=== PATIENT | female | born 1955 | race Two or more races ===

== ENCOUNTER 2023-04-04 13:14 | Outpatient (AMB) | payer OTHER, SELFPAY ==
--- NOTE | 2023-04-04 13:18 | MHC.PC.OV ---
Vital Signs 04/04/23 13:22 Height 5 ft 2.5 in Weight 212 lb 8 oz BMI 38.2 BP 130/64 Blood Pressure Location Lt brachial Position Sitting Pulse 81 Pulse Source Pulse Oximeter Pulse Oximetry (%) 96 Oxygen Delivery Method Room Air Intake Visit Reasons: New patient-requesting physical Intake Note: Patient is a new patient here to establish care for Diabetes, HTN, Irregular heart beat, Right leg pain, Thyroid ?, Chronic pain. Transferring care from Dr Perlita You ([facility]). Medical records have not been requested and have not received. Transportation Specialist Required: No Etcher Machine: Not Required per policy Accompanied by: Self / Same As Patient Allergies aspirin Allergy (Intermediate, Verified 04/04/23 13:45) Gastrointestinal Upset Medication List - Last Reconciled 04/04/23 by FINN Whelan atenolol 100 mg PO DAILY flash glucose sensor (FreeStyle Ela 2 Sensor kit) check bs 4 times a day insulin detemir U-100 (Levemir FlexPen) 60 units subcut QPM insulin lispro 18 units subcut TID losartan 50 mg PO DAILY pen needle, diabetic (BD Ultra-Fine Micro Pen Needle) As directed Tobacco use date assessed: 04/04/23 Fall risk assessment: 1 Fall in past year Last assessed Fall Risk: 04/04/23 Dental Screening Dental Screen Date: 04/04/23 Did you have a dental visit in the last 12 months?: No Did you have a dental problem in the last 6 months where you did not have access to dental care?: No Was dental information given to patient?: No HPI HPI Comments History of Present Illness Details 67-year-old female new patient presents today to establish care. Past medical history significant for hypertension, type 2 diabetes mellitus, thyroid nodules last thyroid ultrasound completed October 2022 recommended 1 year follow-up and chronic pain. Patient transferring care from Dr. Perltia You. [facility] Medical History (Updated 04/06/23 @ 07:09 by FINN Whelan) Right sided sciatica Polyarthralgia Thyroid nodule Irregular heart beat Surgical History History of toe surgery History of delivery Family History (Updated 04/04/23 @ 13:53 by FINN Whelan) Mother Diabetes HTN (hypertension) Father Cardiomegaly Substance use disorder Social History Housing: House Alcohol intake: never Patient Tobacco Use Status: Former Tobacco user e-Cigarette/Vaping Use: Never Used Second Hand Smoke Exposure: No service: No Current occupational status: retired Cognitive needs: Yes (cane) Hearing needs: No Vision needs: Yes (glasses) Questionnaire PHQ-9 Over the last 2 weeks, how often have you been bothered by any of the following problems? 1. Little interest or pleasure in doing things: not at all 2. Feeling down, depressed, or hopeless: not at all 3. Trouble falling or staying asleep, or sleeping too much: not at all 4. Feeling tired or having little energy: not at all 5. Poor appetite or overeating: not at all 6. Feeling bad about yourself - or that you are a failure or have let yourself or your family down: not at all 7. Trouble concentrating on things, such as reading the newspaper or watching television: not at all 8. Moving or speaking so slowly that other people could have noticed. Or the opposite - being so fidgety or restless that you have been moving around a lot more than usual: not at all 9. Thoughts that you would be better off or of hurting yourself in some way: not at all Total score: 0 Depression Screening Interpretation: Negative Depression Screening Done: Yes [id number] - PHQ-9 Billing: Yes Source: Developed by Drs. Jesse Cui, Beatrice Casas, Les Bhatia and colleagues, with an educational harlan from [employer]. Thrive Questionnaire Date Thrive assessed: 04/04/23 I am a: Patient What is your living situation today?: I have a steady place to live Within the past 12 months, did the food you bought not last and you didn't have the money to get more?: Never true Within the past 12 months, did you worry whether your food would run out before you got money to buy more?: Never true Do you have trouble paying for medicines?: No Do you have trouble getting transportation to medical appointments?: No Do you have trouble paying your heating and electricity bill?: No Do you have trouble taking care of your child, family member or friend?: No Do you have trouble with day-to-day activities such as bathing, preparing meals, shopping, managing finances, etc.?: No Are you currently unemployed and looking for a job?: No Are you interested in more education?: No Currently or been in a relationship where the following occur: no concerns reported AUDIT C Alcohol Use Questionnaire (AUDIT-C) 1. How often do you have a drink containing alcohol?: Never Total Score: 0 NALINI-7 AMB Questionnaire NALINI-7 Date NALINI - 7 assessed: 04/04/23 Feeling nervous, anxious, or on edge: 0 = Not at all Not being able to stop or control worryin = Not at all Worrying too much about different things: 0 = Not at all Trouble relaxin = Not at all Being so restless that it is hard to sit still: 0 = Not at all Becoming easily annoyed or irritable: 0 = Not at all Feeling afraid as if something awful might happen: 0 = Not at all Total NALINI-7 score (0-4 normal; 5-9 mild; 10-14 moderate; 15-21 severe): 0 Source: Developed by Drs. eJsse Cui, Beatrice Casas, Les Bhatia and colleagues, with an educational harlan from [employer]. NALINI-7 Assessment Billing NALINI-7 Assessment Tool: NALINI-7 Assessment 20880 Review of Systems Const Denies chills, Denies fatigue, Denies fever(s) and Denies poor appetite Eyes Denies no additional complaints ENT Reports Normal hearing present Card Denies chest pain, Denies syncope, Denies rapid heart rate and Denies dyspnea Resp Denies cough and Denies dyspnea GI Denies change in stool character, Denies constipation, Denies diarrhea, Denies nausea and Denies vomiting Denies urinary frequency, Denies dysuria and Denies urinary urgency Neuro Reports Normal hearing present, Denies confusion and Denies syncope Psych Denies confusion Endo Denies fatigue Physical exam (Primary Care) Vital Signs: Last Vital Signs Pulse 81 04/04/23 13:22 BP 130/64 04/04/23 13:22 Pulse Ox 96 04/04/23 13:22 Oxygen Delivery Method Room Air 10/13/23 13:22 BMI result Body Mass Index 38.2 Tobacco/Smoking Status: Tobacco use Status Tobacco use date assessed 04/04/23 04/04/23 13:39 Patient Tobacco Use Status Former Tobacco user 04/04/23 13:39 e-Cigarette/Vaping Use Never Used 04/04/23 13:39 PHQ-9: PHQ-9 Score PHQ-9: Total score 0 04/04/23 14:05 Depression Screening Interpretation: Negative Thrive Assessment: Date of Thrive Assessment Date Thrive assessed 04/04/23 04/04/23 13:39 Currently or been in a relationship where the following occur: no concerns reported Const General: No confusion Orientation/consciousness: No confusion HENMT Head: Yes normocephalic and Yes atraumatic Eyes Conjunctivae: conjunctivae normal Chest Chest palpation & inspection: normal inspection of the chest Resp Effort & Inspection: normal respiratory effort Auscultation: clear to auscultation bilaterally, no crackles, no rhonchi and no wheezes Cardio Rate: regular rate Rhythm: regular rhythm Heart sounds: S1 normal heart sound present and S2 normal heart sound present GI Inspection: Yes normal to inspection Neuro General: No confusion Cranial nerves: Yes Normal hearing present Extrem General: No edema Office Procedures Flu Questionnaire Does the patient have a severe egg allergy?: No Does the patient have severe life threatening allergies?: No Does the patient have a fever or illness today?: No Has the patient ever had Guillain-Ligonier Syndrome?: No Has the patient ever had any past reaction to a flu shot?: No Immunizations flu vacc [id number] 6mos up(PF) 60 mcg(15 mcgx4)/0.5 mL IM syringe Performing Provider: FINN Whelan [facility] Documented (not given) by: GRAYSON Rivera on 04/04/23 14:06 Reason Not Given: Not Given Assessment and Plan Assessment & Plan (1) HTN (hypertension): Code(s): I10 - Essential (primary) hypertension Plan: Continue on atenolol 100 mg daily and losartan 50 mg daily. Blood pressure goal less than 140/90. Follow low-salt diet and exercise. (2) Type 2 diabetes mellitus: Code(s): E11.9 - Type 2 diabetes mellitus without complications Plan: Continue on Levemir 60 units q.p.m. and insulin lispro 18 units t.i.d.. Fasting glucose and hemoglobin A1c ordered. Plan [facility] in [facility] for PE Orders: Orders Comprehensive [place]. Panel Fast 04/04/23 M25.50 - Pain in unspecified joint Lipid Panel 04/04/23 Z13.220 - Encounter for screening for lipoid disorders Hemoglobin A1c 04/04/23 E11.9 - Type 2 diabetes mellitus without complications Influenza [id number] Immunization 04/04/23 Z23 - Encounter for immunization Complete Blood Count Auto Diff 04/04/23 Z13.0 - Encounter for screening for diseases of the blood and blood-forming organs and certain disorders involving the immune mechanism TSH reflex Free T4 04/04/23 Z13.29 - Encounter for screening for other suspected endocrine disorder Microalbumin, Random (w Creat) 04/04/23 E11.9 - Type 2 diabetes mellitus without complications Medications: New losartan 50 mg PO DAILY 30 tabs 3RF I10 - Essential (primary) hypertension flash glucose sensor (FreeStyle Ela 2 Sensor kit) check bs 4 times a day 1 ea 5RF Coding Level of Care Code New Pt Level 4 (16334) Diagnoses HTN (hypertension) I10 Type 2 diabetes mellitus E11.9 Additional Codes NALINI-7 Assessment Billing - NALINI-7 Assessment Tool: NALINI-7 Assessment 49266 ([id number])
[2023-04-04 13:22] VITALS: BP 130/64; PULSE 81; O2SAT 96; BMI 38.2
== END 2023-04-04 14:10 | disposition home or self-care (01) ==
PROVIDERS: PCP Nurse Practitioner Family; Visit Provider Nurse Practitioner Family
DX: I10 Essential (primary) hypertension (principal); E11.9 Type 2 diabetes mellitus without complications
CPT/HCPCS: 99204

== ENCOUNTER 2023-06-11 08:05 | Outpatient (REF) | payer MEDICARE, SELFPAY ==
[2023-06-11 08:22] LABS: MANUAL DIFF FLAG NO
[2023-06-11 09:07] LABS: Basophils Percent Auto 0.3 % (0-2); Eosinophils Absolute Auto 0.2 X10*3/uL (0.0-0.4); Eosinophils Percent Auto 1.9 % (0-4); Hemoglobin 12.6 g/dl (12.0-16.0); Imm Gran Abs Auto 0.05 X10*3/uL (0.00-0.03); Imm Gran Pct Auto 0.4 % (0.0-0.4); Lymphocytes Absolute Auto 2.9 X10*3/uL (1.2-4.9); Lymphocytes Percent Auto 25.7 % (20-40); Mean Corpuscular HGB Conc 32.3 g/dl (31.0-35.0); Mean Corpuscular Hemoglobin 26.1 pg (27.0-33.0); Mean Corpuscular Volume 80.9 fL (80.0-98.0); Mean Platelet Volume 10.6 fL (9.4-12.3); Monocytes Absolute Auto 0.6 X10*3/uL (0.1-1.2); Monocytes Percent Auto 4.9 % (2-11); Neutrophils Absolute Auto 7.6 x10*3/uL (2.0-8.3); Neutrophils Percent Auto 66.8 % (45-73); Platelet Count 275 X10*3/uL (160-400); Red Blood Count 4.82 X10*6/uL (4.20-5.50); Red Cell Distribution Width 14.1 % (11.0-16.0); White Blood Count 11.3 X10*3/uL (4.8-10.8)
[2023-06-11 09:23] LABS: Estimated Average Glucose 189 mg/dL; Hemoglobin A1c % 8.2 % (<6.0)
[2023-06-11 09:41] LABS: Alanine Aminotransferase 14 U/L (0-31); Albumin Level 4.2 g/dL (3.5-5.0); Alkaline Phosphatase 90 U/L (39-117); Anion Gap 12 (12-20); Aspartate Amino Transferase 17 U/L (5-31); Bilirubin Total 0.8 mg/dL (0.0-1.0); Blood Urea Nitrogen 8 mg/dL (9-16); Calcium 9.6 mg/dL (8.4-10.2); Carbon Dioxide 31 mmol/L (22-29); Chloride 102 mmol/L (96-108); Cholesterol 225 mg/dL (<200); Estimated Glomerular Filt Rate > 60; Glucose Fasting 152 mg/dL (60-99); HDL Cholesterol 45 mg/dL (>40); LDL Cholesterol Calculated 144 mg/dL (<100); Potassium 3.8 mmol/L (3.3-5.1); Sodium 141 mmol/L (135-145); Total Protein 8.2 g/dL (6.5-8.0); Triglycerides 182 mg/dL (<150)
[2023-06-11 09:58] LABS: Creatinine Urine 230.74 mg/dL; Microalbum/Creatinine Ratio Ur 179.8 ug/mg cr (<30)
[2023-06-11 10:06] LABS: TSH reflex Free T4 0.51 uIU/mL (0.32-4.0)
== END 2023-06-11 08:06 | disposition home or self-care (01) ==
LOC: HO.LAB 08:05
PROVIDERS: PCP Internal Medicine; Visit Provider Nurse Practitioner Family
DX: M25.50 Pain in unspecified joint (principal); E11.9 Type 2 diabetes mellitus without complications; Z13.220 Encounter for screening for lipoid disorders; Z13.0 Encounter for screening for diseases of the blood and blood-forming organs and certain disorders involving the immune mechanism; Z13.29 Encounter for screening for other suspected endocrine disorder
CPT/HCPCS: 36415; 80053; 80061; 82043; 82570; 83036; 84443; 85025

== ENCOUNTER 2023-07-03 07:53 | Outpatient (AMB) | payer MEDICARE, SELFPAY ==
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
[2023-07-03 08:37] VITALS: BP 132/80; PULSE 78; O2SAT 95; BMI 38.5
== END 2023-07-03 09:40 | disposition home or self-care (01) ==
PROVIDERS: PCP Internal Medicine; Visit Provider Internal Medicine
DX: L43.9 Lichen planus, unspecified (principal); E11.9 Type 2 diabetes mellitus without complications; I10 Essential (primary) hypertension
CPT/HCPCS: 99214

== ENCOUNTER 2023-09-04 07:49 | Outpatient (AMB) | payer MEDICARE, SELFPAY ==
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
[2023-09-04 08:40] VITALS: BP 100/64; PULSE 71; O2SAT 97; BMI 39.1
== END 2023-09-04 09:09 | disposition home or self-care (01) ==
PROVIDERS: PCP Internal Medicine; Visit Provider Internal Medicine
DX: E11.9 Type 2 diabetes mellitus without complications (principal)
CPT/HCPCS: 83036; 99214

== ENCOUNTER 2023-09-15 11:41 | Outpatient (REF) | payer MEDICARE, SELFPAY ==
--- NOTE | ~2023-09-15 | MM_ITS ---
EXAMINATION: MM SCREENING DIGITAL BREAST TOMOSYNTHESIS, BILATERAL CLINICAL INFORMATION: Screening. Asymptomatic. COMPARISON: Mammography: There are no prior mammograms for comparison. TECHNIQUE: Digital breast tomosynthesis is performed in both the craniocaudal and mediolateral oblique views along with computer-aided detection (CAD). Synthesized 2D images are generated from the tomosynthesis. FINDINGS: There are scattered areas of fibroglandular density (ACR BI-RADS breast composition Category b). There are no significant masses, abnormal calcifications, or other abnormalities. MM/MM tomosynthesis screening BI IMPRESSION: No mammographic evidence of malignancy. ASSESSMENT: BI-RADS BI-RADS 1 - Negative RECOMMENDATION: Routine annual mammography screening. 1 year F/U This examination should not preclude the clinical evaluation of a suspicious palpable abnormality. This patient's information was entered into a reminder system with a target due date for their next mammogram.
== END 2023-09-15 11:42 | disposition home or self-care (01) ==
LOC: HO.MAMMO 11:41
PROVIDERS: PCP Internal Medicine; Visit Provider Internal Medicine
DX: Z12.31 Encounter for screening mammogram for malignant neoplasm of breast (principal)
CPT/HCPCS: 77063; 77067

== ENCOUNTER → 2023-09-15 12:00 | Outpatient (BNV) | payer MEDICARE, SELFPAY | PROVIDERS: PCP Internal Medicine; Visit Provider Radiology Diagnostic Radiology | DX: Z12.31 Encounter for screening mammogram for malignant neoplasm of breast (principal) | CPT/HCPCS: 77063; 77067 ==

== ENCOUNTER 2023-12-11 13:11 | Outpatient (AMB) | payer MEDICARE, SELFPAY ==
--- NOTE | 2023-12-11 14:17 | A.OFFPC_ITS ---
Vital Signs 12/11/23 14:19 Height 5 ft 2.5 in Weight 216 lb 6 oz BMI 38.9 BP 126/60 Blood Pressure Location Lt brachial Position Sitting Pulse 85 Pulse Source Pulse Oximeter Pulse Oximetry (%) 97 Oxygen Delivery Method Room Air Intake Visit Reasons: 3 Month F/U Intake Note: Patient is here to follow up on DM, HTN, Arthralgia. Edge Bander Hand Required: No In Home Sales Representative: Not Required per policy Accompanied by: Self / Same As Patient Allergies aspirin Allergy (Intermediate, Verified 12/11/23 15:15) Gastrointestinal Upset hydrochlorothiazide Allergy (Intermediate, Verified 12/11/23 15:15) Hypertension Medication List - Last Reconciled 12/11/23 by Maurice Moralez MD atenolol 100 mg PO DAILY atorvastatin 10 mg PO BEDTIME flash glucose sensor (FreeStyle Ela 2 Sensor kit) check bs 4 times a day insulin detemir U-100 (Levemir FlexPen) 60 units subcut QPM insulin lispro 18 units subcut TID pen needle, diabetic (BD Ultra-Fine Micro Pen Needle) As directed valsartan 80 mg PO DAILY Tobacco use date assessed: 12/11/23 Fall risk assessment: No Falls in past year Last assessed Fall Risk: 12/11/23 Dental Screening Dental Screen Date: 09/04/23 HPI 3 Month F/U HPI Details 68-year-old female presents to the [facility] e to discuss her chronic medical conditions. Patient is compliant with medications. She reports that her diet is still not optimal. Not exercising or checking sugars at home. Able to function and do activities of daily living. Patient lives with her son. Complains of pains in both her wrist joints and other small joints of the hand in both extremities. Morning stiffness present. [facility] Medical History HTN (hypertension) Type 2 diabetes mellitus Right sided sciatica Polyarthralgia Thyroid nodule Irregular heart beat Surgical History History of toe surgery History of delivery Family History Mother Diabetes HTN (hypertension) Father Cardiomegaly Substance use disorder Social History Housing: House Alcohol intake: never Patient Tobacco Use Status: Former Tobacco user e-Cigarette/Vaping Use: Never Used Second Hand Smoke Exposure: No service: No Current occupational status: retired Cognitive needs: Yes (cane) Hearing needs: No Vision needs: Yes (glasses) Questionnaire Thrive Questionnaire Date Thrive assessed: 07/03/23 NALINI-7 AMB Questionnaire NALINI-7 Date NALINI - 7 assessed: 07/03/23 Source: Developed by Drs. Jesse Cui, Beatrice Casas, Les Bhatia and colleagues, with an educational harlan from [employer]. Physical exam (Primary Care) Vital Signs: Last Vital Signs Pulse 85 12/11/23 14:19 BP 126/60 12/11/23 14:19 Pulse Ox 97 12/11/23 14:19 Oxygen Delivery Method Room Air 12/11/23 14:19 BMI result Body Mass Index 38.9 Tobacco/Smoking Status: Tobacco use Status Tobacco use date assessed 12/11/23 12/11/23 14:30 Patient Tobacco Use Status Former Tobacco user 12/11/23 14:30 e-Cigarette/Vaping Use Never Used 12/11/23 14:30 Thrive Assessment: Date of Thrive Assessment Date Thrive assessed 07/03/23 12/11/23 14:30 Const General: cooperative and healthy appearing Nutritional Appearance: well nourished Orientation/consciousness: patient oriented x3 Limitations: no limitations HENMT Head: Yes normal to inspection Eyes General: appearance normal, both eyes and all related structures Neck Neck: Yes normal visual inspection Chest Chest palpation & inspection: normal palpation of entire chest wall Resp Effort & Inspection: normal respiratory effort Neuro General: patient oriented x3 Results AMB Hemoglobin A1c AMB Hemoglobin A1c 8.3 % Last Edit by GRAYSON Monteiro on 12/11/23 14:32 Results Reviewed Results Reviewed: Laboratory Last Values Hgb A1c (Clinic) 8.3 % (4.0-6.0) H 12/11/23 14:17 Assessment and Plan Assessment & Plan (1) Type 2 diabetes mellitus: Code(s): E11.9 - Type 2 diabetes mellitus without complications Plan: A1c is 8.3. No change compared to the previous. Patient still reluctant to increase her insulin dosage. She believes by optimizing her diet she can reduce her A1c. (2) Arthralgia of multiple joints: Code(s): M25.50 - Pain in unspecified joint Plan: Blood work has been ordered. Orders: Orders AMB Hemoglobin A1c Today E11.9 - Type 2 diabetes mellitus without complications Coding Level of Care Code Est Pt Level 3 (64038) Complex EM visit Add On G2211 Diagnoses Type 2 diabetes mellitus E11.9 Arthralgia of multiple joints M25.50
[2023-12-11 14:19] VITALS: BP 126/60; PULSE 85; O2SAT 97; BMI 38.9
== END 2023-12-11 14:59 | disposition home or self-care (01) ==
PROVIDERS: PCP Internal Medicine; Visit Provider Internal Medicine
DX: E11.9 Type 2 diabetes mellitus without complications (principal); M25.50 Pain in unspecified joint
CPT/HCPCS: 83036; 99213; G2211

== ENCOUNTER 2023-12-16 08:48 | Outpatient (REF) | payer MEDICARE, SELFPAY ==
[2023-12-16 09:27] LABS: Hematocrit 37.6 % (37.0-47.0); Hemoglobin 12.1 g/dl (12.0-16.0); Mean Corpuscular HGB Conc 32.2 g/dl (31.0-35.0); Mean Corpuscular Hemoglobin 26.2 pg (27.0-33.0); Mean Corpuscular Volume 81.6 fL (80.0-98.0); Mean Platelet Volume 10.7 fL (9.4-12.3); Platelet Count 209 X10*3/uL (160-400); Red Blood Count 4.61 X10*6/uL (4.20-5.50); White Blood Count 9.1 X10*3/uL (4.8-10.8)
[2023-12-16 09:54] LABS: Alanine Aminotransferase 12 U/L (0-31); Albumin Level 4.1 g/dL (3.5-5.0); Alkaline Phosphatase 99 U/L (39-117); Anion Gap 13 (12-20); Aspartate Amino Transferase 14 U/L (5-31); Bilirubin Direct 0.2 mg/dL (0.0-0.5); Bilirubin Total 0.8 mg/dL (0.0-1.0); Blood Urea Nitrogen 8 mg/dL (9-16); Calcium 9.1 mg/dL (8.4-10.2); Carbon Dioxide 30 mmol/L (22-29); Chloride 105 mmol/L (96-108); Cholesterol 170 mg/dL (<200); Estimated Glomerular Filt Rate > 60; Glucose Random 183 mg/dL (60-115); HDL Cholesterol 39 mg/dL (>40); LDL Cholesterol Calculated 111 mg/dL (<100); Potassium 3.7 mmol/L (3.3-5.1); Sodium 144 mmol/L (135-145); Total Protein 7.9 g/dL (6.5-8.0); Triglycerides 102 mg/dL (<150)
[2023-12-16 10:12] LABS: Erythrocyte Sedimentation Rate 31 MM/HR (0-20)
== END 2023-12-16 08:49 | disposition home or self-care (01) ==
LOC: HO.LAB 08:48
PROVIDERS: PCP Internal Medicine; Visit Provider Internal Medicine
DX: E11.9 Type 2 diabetes mellitus without complications (principal); M25.50 Pain in unspecified joint
CPT/HCPCS: 36415; 80048; 80061; 80076; 85027; 85652

== ENCOUNTER 2024-03-17 13:53 | Outpatient (AMB) | payer MEDICARE, SELFPAY ==
--- NOTE | 2024-03-17 13:58 | A.OFFPC_ITS ---
Vital Signs 03/17/24 13:59 Height 5 ft 2.5 in Weight 213 lb 2 oz BMI 38.4 BP 110/78 Blood Pressure Location Lt brachial Position Sitting Pulse 80 Pulse Source Pulse Oximeter Pulse Oximetry (%) 98 Oxygen Delivery Method Room Air Intake Visit Reasons: 3mth f/u - see comments Intake Note: Patient is here to follow up on HTN, DM. Requesting Levemir insulin refill. 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 Patient continues to have pain in her left elbow, left knee and left hip. She uses a cane to ambulate. Compliant with medications. She does not check her blood sugars often. [facility] Medical History (Updated 03/17/24 @ 14:40 by Maurice Moralez MD) HTN (hypertension) Type 2 diabetes mellitus Right sided sciatica Polyarthralgia Thyroid nodule Irregular heart beat Surgical History (Updated 03/17/24 @ 14:30 by Maurice Moralez MD) History of colonoscopy (~06/23/20) History of tooth extraction History of toe surgery History of delivery Family History Mother Diabetes HTN (hypertension) Father Cardiomegaly Substance use disorder Social History Housing: House Alcohol intake: never Patient Tobacco Use Status: Former Tobacco user e-Cigarette/Vaping Use: Never Used Second Hand Smoke Exposure: No service: No Current occupational status: retired Cognitive needs: Yes (cane) Hearing needs: No Vision needs: Yes (glasses) Questionnaire Thrive Questionnaire Date Thrive assessed: 07/03/23 Are you currently unemployed and looking for a job?: No NALINI-7 AMB Questionnaire NALINI-7 Date NALINI - 7 assessed: 07/03/23 Source: Developed by DrsBrayden Cui, Beatrice Casas, Les Bhatia and colleagues, with an educational harlan from [employer]. Physical exam (Primary Care) BMI result Body Mass Index 38.4 Tobacco/Smoking Status: Tobacco use Status Tobacco use date assessed 03/17/24 03/17/24 14:04 Patient Tobacco Use Status Former Tobacco user 03/17/24 14:04 e-Cigarette/Vaping Use Never Used 03/17/24 14:04 Thrive Assessment: Date of Thrive Assessment Date Thrive assessed 07/03/23 03/17/24 14:04 Const General: cooperative and healthy appearing Nutritional Appearance: well nourished Orientation/consciousness: patient oriented x3 Limitations: no limitations HENMT Head: Yes normal to inspection Eyes General: appearance normal, both eyes and all related structures Neck Other: Multiple thyroid nodules. Neck: Yes normal visual inspection Chest Chest palpation & inspection: normal palpation of entire chest wall Resp Effort & Inspection: normal respiratory effort Neuro General: patient oriented x3 Results AMB Hemoglobin A1c AMB Hemoglobin A1c 8.0 % Last Edit by GRAYSON Monteiro on 03/17/24 14:16 Assessment and Plan Assessment & Plan (1) HTN (hypertension): Code(s): I10 - Essential (primary) hypertension Plan: Blood pressure is in range. Continue medications at same dosage. (2) Type 2 diabetes mellitus: Code(s): E11.9 - Type 2 diabetes mellitus without complications Plan: A1c is 8.0. Patient now agrees to increase her insulin dosage. Lantus insulin has been increased to 70 units and the short-acting insulin has been increased to 20 units t.i.d.. (3) Arthralgia of multiple joints: Code(s): M25.50 - Pain in unspecified joint Plan: Patient has osteoarthritis. Suggested daily use of acetaminophen. (4) Thyroid nodule: Comment: Multiple thyroid nodules, U/S October 2022 Recommended 1 year Follow up Code(s): E04.1 - Nontoxic single thyroid nodule Plan: Patient reports that she has had ultrasounds done by her circular saw edge fuser in [place]. Old records are being requested. Orders: Orders AMB Hemoglobin A1c Today E11.9 - Type 2 diabetes mellitus without complications Referrals Cologuard Test Z12.11 - Encounter for screening for malignant neoplasm of colon Coding Level of Care Code Est Pt Level 4 (36555) Complex EM visit Add On G2211 Diagnoses HTN (hypertension) I10 Type 2 diabetes mellitus E11.9 Arthralgia of multiple joints M25.50 Thyroid nodule E04.1
[2024-03-17 13:59] VITALS: BP 110/78; PULSE 80; O2SAT 98; BMI 38.4
== END 2024-03-17 15:06 | disposition home or self-care (01) ==
PROVIDERS: PCP Internal Medicine; Visit Provider Internal Medicine
DX: I10 Essential (primary) hypertension (principal); E11.9 Type 2 diabetes mellitus without complications; M25.50 Pain in unspecified joint; E04.1 Nontoxic single thyroid nodule

== ENCOUNTER → 2024-03-17 13:53 | Outpatient (BNVA) | payer MEDICARE, SELFPAY | PROVIDERS: PCP Internal Medicine; Visit Provider Internal Medicine | DX: E11.9 Type 2 diabetes mellitus without complications (principal); I10 Essential (primary) hypertension; M25.50 Pain in unspecified joint; E04.1 Nontoxic single thyroid nodule | CPT/HCPCS: 83036; 99212 ==

== ENCOUNTER 2024-06-30 09:15 | Outpatient (AMB) | payer MEDICARE, SELFPAY ==
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
[2024-06-30 09:55] VITALS: BP 138/74; PULSE 80; O2SAT 98; BMI 39.1
== END 2024-06-30 10:55 | disposition home or self-care (01) ==
PROVIDERS: PCP Internal Medicine; Visit Provider Internal Medicine
DX: E11.9 Type 2 diabetes mellitus without complications (principal)

== ENCOUNTER → 2024-06-30 09:15 | Outpatient (BNVA) | payer MEDICARE, SELFPAY | PROVIDERS: PCP Internal Medicine; Visit Provider Internal Medicine | DX: Z09 Encounter for follow-up examination after completed treatment for conditions other than malignant neoplasm (principal); M79.605 Pain in left leg; M54.9 Dorsalgia, unspecified; M25.551 Pain in right hip; M25.552 Pain in left hip; E04.1 Nontoxic single thyroid nodule; E11.9 Type 2 diabetes mellitus without complications; M25.50 Pain in unspecified joint; I10 Essential (primary) hypertension; Z87.898 Personal history of other specified conditions | CPT/HCPCS: 83036; 96127; 99212 ==

== ENCOUNTER → 2024-07-28 11:49 | Outpatient (BNV) | payer MEDICARE, SELFPAY | PROVIDERS: PCP Internal Medicine; Visit Provider Radiology Diagnostic Radiology | DX: E04.1 Nontoxic single thyroid nodule (principal) | CPT/HCPCS: 76536 ==

== ENCOUNTER 2024-08-10 07:35 | Outpatient (REF) | payer MEDICARE, SELFPAY ==
--- NOTE | ~2024-08-10 | XR_ITS ---
EXAMINATION: XR HIP, RIGHT CLINICAL INFORMATION: M25.559 - Pain in unspecified hip COMPARISON: None available. TECHNIQUE: AP pelvis, and 2 views of the right hip. FINDINGS: No fracture. Alignment is anatomic. Hip joint space is maintained. Normal acetabular coverage. Mild arthritic changes in both SI joints and the lower lumbar spine. Soft tissues are unremarkable. XR/XR hip RT min 2V IMPRESSION: Normal right hip. Electronically signed by: Elmer Rushing MD 08/11/2024 08:53 AM [facility]
--- NOTE | ~2024-08-10 | XR_ITS ---
EXAMINATION: XR HIP, LEFT CLINICAL INFORMATION: M25.559 - Pain in unspecified hip COMPARISON: None available. TECHNIQUE: Two views of the left hip. FINDINGS: No fracture. Alignment is anatomic. Hip joint space is maintained. Normal acetabular coverage. Soft tissues are unremarkable. XR/XR hip LT min 2V IMPRESSION: Normal left hip. Electronically signed by: Elmer Rushing MD 08/11/2024 08:52 AM [facility]
--- OUTSIDE RECORDS SUMMARY | 2024-08-10 07:37 | XMS_ITS | Patient Health Record ---
Author Organization [facility] Address [address] [place] [address] Care Team Providers Care Electronic Gluing Machine Operator Name Role Phone Robert Franco Primary Care Provider Robert Franco Unavailable Unavailable Allergies No Known Allergies Reason For Referral No Information Medications Medication SIG (Take, Route, Frequency, Duration) Notes Start Date End Date Status Atenolol 100 MG 1 tablet Orally Once a day for 30 day(s) Active Losartan Potassium-HCTZ 50-12.5 MG 1 tablet Orally Once a day for 30 day(s) Active NovoLOG FlexPen 100 UNIT/ML as directed Subcutaneous Act jeniffer Lantus SoloStar 100 UNIT/ML 20 subcut qhs Active Plan Of Treatment Pending Test Test Name Order Date Urinalysis, Complete 01/26/2021 Insurance Providers Payer Name Payer Address Payer Phone Subscriber Number Group Number Insured Name Patient Relationship to Insured Coverage Start Date Coverage End Date [facility] [address] [address] [place] [phone] [id number] Kathy Cowan Self - patient is the insured Medical (General) History Medical History History ICD Code DM hypertension irregiular heart beat Surgical History Surgery Date(Month/Year) c section Hospitalization History Reason Date(Month/Year) as above
== END 2024-08-10 07:36 | disposition home or self-care (01) ==
LOC: HO.HOSX 07:35
PROVIDERS: Visit Provider Physician Assistant
DX: M25.551 Pain in right hip (principal); M25.552 Pain in left hip; M54.16 Radiculopathy, lumbar region
CPT/HCPCS: 73502; 99202

== ENCOUNTER 2024-08-10 09:39 | Outpatient (AMB) | payer MEDICARE, SELFPAY ==
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
[2024-08-10 09:58] VITALS: BMI 39.7
== END 2024-08-10 10:16 | disposition home or self-care (01) ==
PROVIDERS: PCP Internal Medicine; Visit Provider Physician Assistant
DX: M54.16 Radiculopathy, lumbar region (principal)
CPT/HCPCS: 99203

== ENCOUNTER → 2024-08-10 09:44 | Outpatient (BNV) | payer MEDICARE, SELFPAY | PROVIDERS: Visit Provider Radiology Diagnostic Radiology | DX: M25.551 Pain in right hip (principal); M25.552 Pain in left hip | CPT/HCPCS: 73502 ==

== ENCOUNTER 2024-09-02 10:31 | Outpatient (AMB) | payer MEDICARE, SELFPAY ==
[2024-09-02 10:32] VITALS: BP 142/100; PULSE 85; O2SAT 97; BMI 40.7
--- NOTE | 2024-09-02 10:32 | A.OFFVIS_ITS ---
Vital Signs 09/02/24 10:32 Height 5 ft 2 in Weight 222 lb 10.67 oz BMI 40.7 BP 142/100 H Blood Pressure Location Rt brachial Position Sitting Pulse 85 Pulse Source Pulse Oximeter Pulse Oximetry (%) 97 Oxygen Delivery Method Room Air Intake Visit Reasons: Nontoxic multinodular goiter Intake Note: New patient present today for Nontoxic multinodular goiter office visit. 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: No Accompanied by: Self / Same As Patient Allergies aspirin Allergy (Intermediate, Verified 09/02/24 10:33) Gastrointestinal Upset hydrochlorothiazide Allergy (Intermediate, Verified 09/02/24 10:33) Hypertension Medication List - Last Reconciled 09/02/24 by Monik Brown MD atenolol 100 mg PO DAILY atorvastatin 10 mg PO BEDTIME flash glucose sensor (FreeStyle Ela 2 Sensor kit) check bs 4 times a day insulin glargine (Lantus Solostar U-100 Insulin) 70 units (0.7 mL) subcut DAILY 30 days insulin lispro 20 units subcut TID pen needle, diabetic (BD Ultra-Fine Micro Pen Needle) As directed valsartan 80 mg PO DAILY HPI Comments Details: 68-year-old female coming in today for initial evaluation of Nontoxic multinodular goiter. Diagnosed in 2022 in [place]. Was told she needed a repeat US in 1 year, no FNA done. 07/28/2024: Ultrasound of the thyroid, I reviewed the images myself which showed a right superior pole nodule measuring 2.8 cm which is solid, hypoechoic, even though the report says extrathyroidal extension, this is not very clear on the imaging, this is somewhere between a TR 4 versus a TR 5 nodule. Regardless meets criteria for FNA.Another right mid lobe 1 cm TR 4 nodule with peripheral calcifications. A right inferior pole 1.6 cm solid hypoechoic TR 4 category nodule that does meet criteria for FNA. She also has a an isthmus 1.4 cm solid hypoechoic nodule with a extrathyroidal extension, TR 5 category nodule. Also meets criteria for FNA. And lastly a left inferior pole 1.5 cm solid isoechoic TR 3 category nodule. Patient currently denies heat or cold intolerance, diarrhea or constipation, hair loss, , anxiety, weight changes, mood changes, low energy, changes in appearance of eyes or vision changes, tremors, increased diaphoresis or dry skin. ? Has an irregular heart beat. Patient denies any difficulty swallowing, pain on swallowing or voice changes or difficulty breathing. Patient denies any history of childhood neck radiation. Denies having ever used lithium, amiodarone or biotin supplements. Patient denies any family history of thyroid cancer . 2 neices have thyroid disease, unclear which one but take medication so likley hypothyroidism. No recent TFTs. 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 Physical exam General: sitting comfortably in no acute distress HEENT: normocephalic/atraumatic Neck: supple, isthmus 2 cm palpable nodule Cardiac: normal heart sounds Pulm: normal breath sounds B/L, no added breath sounds Abd: not distended, no tenderness Laboratory Tests 06/11/23 08:19 TSH 0.51 US THYROID 07/28/24 CLINICAL INFORMATION: Nontoxic single thyroid nodule. COMPARISON: None available. TECHNIQUE: Linear transducer grayscale and color Doppler examination with attention to the region of the thyroid. FINDINGS: SIZE: Measurements of the thyroid lobes and nodules are given in sagittal, anteroposterior and transverse dimensions respectively. Right Thyroid Lobe: 6.3 x 3.1 x 2.6 cm, volume 26.7 mL. Parenchyma: The gland echotexture is heterogeneous. Thyroid vascularity is increased. Left Thyroid Lobe: 6.2 x 2.5 x 1.9 cm, volume 15.7 mL. Parenchyma: The gland echotexture is heterogeneous. Thyroid vascularity is increased. Isthmus: 1.0 cm in maximum AP dimension. Estimated total number of nodules greater than or equal to 1 cm: 5. Process Environmental Technician nodules are described as follows: 1. Location: upper right thyroid lobe. Size: 2.2 x 2.0 x 2.8 cm, volume 6.56 mL. Nodule characteristics: Composition: Solid/almost completely solid (2). Echogenicity: Hypoechoic (2). Shape: Not taller than wide (0). Margins: 3 Echogenic Foci: No 0 ACR TI-RADS total points: 7 ACR TI-RADS category: 5 2. Location: Midportion, right thyroid lobe. Size: 1.0 x 1.1 x 1.1 cm, volume 0.64 mL. Nodule characteristics: Composition: Solid (2). Echogenicity: Undetermined (1) Shape: Not taller than wide (0). Margins: Smooth (0). Echogenic Foci: Peripheral calcifications (2). ACR TI-RADS total points: 5 ACR TI-RADS category: 4 3. Location: Lower pole, right thyroid lobe. Size: 1.6 x 1.1 x 1.1 cm, volume 1.01 mL. Nodule characteristics: Composition: Solid/almost completely solid (2). Echogenicity: Hypoechoic (2). Shape: Not taller than wide (0). Margins: Smooth (0). Echogenic Foci: None (0). ACR TI-RADS total points: 4 ACR TI-RADS category: 4 4. Location: Thyroid isthmus. Size: 1.4 x 1.0 x 0.9 cm, volume 0.94 mL. Nodule characteristics: Composition: Solid (2). Echogenicity: Hypoechoic (2). Shape: Not taller than wide (0). Margins: 3 Echogenic Foci: None (0). ACR TI-RADS total points: 7 ACR TI-RADS category: 5 5. Location: [Left Thyroid lobe mid portion. Size: 1.5 x 1.2 x 1.4 cm, volume 1.29 mL. Nodule characteristics: Composition: Solid (2). Echogenicity: Isoechoic (1). Shape: Not taller than wide (0). Margins: Smooth (0). Echogenic Foci: None (0). ACR TI-RADS total points: 3 ACR TI-RADS category: 3 NODES: No lymphadenopathy is seen in the tissue surrounding the thyroid gland. US/US thyroid IMPRESSION: ACR TI RADS category 4 and 5 ACR TI-RADS RECOMMENDATION REFERENCE: Ultrasound-guided fine-needle aspiration, followup ultrasound, no further follow up. * TR1 (0 point) and TR2 (2 points): No FNA or follow up. * TR3 (3 points): FNA if more than or equal to 2.5 cm in maximum dimension, followup ultrasound in 1, 3 and 5 years if 1.5 to 2.4 cm in maximum dimension. * TR4 (4-6 points): FNA if more than or equal to 1.5 cm in maximum dimension, followup ultrasound in 1, 2, 3 and 5 years if 1 to 1.4 cm in maximum dimension. * TR5 (more than or equal to 7 points): FNA if more than or equal to 1 cm in maximum dimension, followup ultrasound every year for 5 years if 0.5 to 0.9 cm in maximum dimension. * TR3, TR4 or TR5 nodules that are below the size threshold for followup receive no follow up. Electronically signed by: Christophe Chaudhry MD 08/03/2024 08:29 AM [facility] Medical History Multiple thyroid nodules Positive colorectal cancer screening using Cologuard test (~04/30/24) HTN (hypertension) Type 2 diabetes mellitus Right sided sciatica Polyarthralgia Thyroid nodule Irregular heart beat Surgical History History of colonoscopy (~06/23/20) History of tooth extraction History of toe surgery History of delivery Family History Mother Diabetes HTN (hypertension) Father Cardiomegaly Substance use disorder Social History Housing: House Alcohol intake: never Patient Tobacco Use Status: Former Tobacco user e-Cigarette/Vaping Use: Never Used Second Hand Smoke Exposure: Yes service: No Current occupational status: retired Cognitive needs: Yes (cane) Hearing needs: No Vision needs: Yes (glasses) Physical Exam Vital Signs: Last Vital Signs Pulse 85 09/02/24 10:32 BP 142/100 H 09/02/24 10:32 Pulse Ox 97 09/02/24 10:32 Oxygen Delivery Method Room Air 09/02/24 10:32 BMI result Body Mass Index 40.7 Assessment & Plan Assessment & Plan (1) Multiple thyroid nodules: Code(s): E04.2 - Nontoxic multinodular goiter Category: Medical Plan: 68-year-old female With no personal history of head or neck radiation, no family history of thyroid cancer here today for initial evaluation with nontoxic multinodular goiter. diagnosed in 2022. In 2022 her ultrasound was done in [place]. She recently moved to [place]. 07/28/2024: Ultrasound of the thyroid, I reviewed the images myself which showed a right superior pole nodule measuring 2.8 cm which is solid, hypoechoic, even though the report says extrathyroidal extension, this is not very clear on the imaging, this is somewhere between a TR 4 versus a TR 5 nodule. Regardless meets criteria for FNA.Another right mid lobe 1 cm TR 4 nodule with peripheral calcifications. A right inferior pole 1.6 cm solid hypoechoic TR 4 category nodule that does meet criteria for FNA. She also has a an isthmus 1.4 cm solid hypoechoic nodule with a extrathyroidal extension, TR 5 category nodule. Also meets criteria for FNA. And lastly a left inferior pole 1.5 cm solid isoechoic TR 3 category nodule. I explained that it is common to have thyroid nodules. About 95% of the time these nodules are benign. However if the nodule is > 1 cm in size or suspicious on ultrasound then a fine need aspiration biopsy is recommended. We discussed that a FNAB involves 4-5 passes with a small gauge needle and material obtained is sent off for cytology.If the cytopathology is benign then the nodule will be followed annually with repeat ultrasounds. However if it is suspicious or malignant, we will need to discuss further management. Indeterminate cytology can be further investigated with repeat FNA, genetic testing or empiric lobectomy. Malignant cytology is managed with either lobectomy or total thyroidectomy. We discussed briefly that thyroid cancer is, in most patients, an indolent disease that does not affect mortality. Risks of the procedure such as minimal bleeding, infection, bruising, and rare risks such as swelling of the neck, soreness, or hoarseness were clearly com municated with the patient. she does not have any compressive symptoms. No recent TFTs in the chart. We will arrange for FNA of the right superior 2.8 in the isthmus 1.4 cm thyroid nodules at next available opening and patient will follow up with me in clinic thereafter for results and further decision making. the right inferior 1.6 cm, we will monitor for now. Plan: Obtain records of Thyroid US from 2022 - PCP has already ordered TSH with reflex free T4, we will follow up results - scheduled for FNA of the right superior 2.8 cm in the isthmus 1.4 cm thyroid nodule FNA biopsy and a follow up 2 weeks after to discuss results Note: BP elevated in office today at 140/100 mm Hg. Patient said that she has a blood pressure cuff at home and for the past 2-3 days blood pressure has been higher than normal. I have asked her to reach out to her PCP's office to discuss blood pressure readings and see if medications need to be adjusted. Patient verbalized understanding. Patient was informed and verbally consented to the use of an ambient scribe for clinic note documentation during this visit. Plan I spent 45 minutes in reviewing the record, seeing the patient and documenting in the medical record. Orders: Orders US biopsy thyroid Today E04.2 - Nontoxic multinodular goiter Patient Instructions: Do thyroid blood work, if abnormal, please send me a portal message We will book you for a biopsy of your thyroid nodules and a follow up 2 weeks after to discuss results Coding Level of Care Code New Pt Level 4 (22166) Diagnoses Multiple thyroid nodules E04.2 Time Spent (min) 45
--- OUTSIDE RECORDS SUMMARY | 2024-09-02 13:12 | XMS_ITS | Patient Health Record ---
Author Organization [facility] Address [address] [place] [address] Care Team Providers Care Skill Labor Name Role Phone Robert Franco Primary Care [...] Insured Coverage Start Date Coverage End Date [facility] [address] [address] [place] [phone] [id number] Kathy Cowan Self - patient is the insured Medical (General) History Medical History History ICD Code DM hypertension irregiular heart beat Surgical History Surgery Date(Month/Year) c section Hospitalization History Reason Date(Month/Year) as above
== END 2024-09-02 11:14 | disposition home or self-care (01) ==
LOC: HO.ENCR 10:31
PROVIDERS: PCP Internal Medicine; Visit Provider Student in an Organized Health Care Education/Training Program
DX: E04.2 Nontoxic multinodular goiter (principal)
CPT/HCPCS: 99204

== ENCOUNTER → 2024-09-02 10:31 | Outpatient (BNVA) | payer MEDICARE, SELFPAY | PROVIDERS: PCP Internal Medicine; Visit Provider Student in an Organized Health Care Education/Training Program | DX: E04.9 Nontoxic goiter, unspecified (principal) | CPT/HCPCS: 99202 ==

== ENCOUNTER 2024-09-09 12:01 | Outpatient (REF) | payer MEDICARE, SELFPAY ==
--- NOTE | ~2024-09-09 | US_ITS ---
EXAMINATION: MM DIAGNOSTIC DIGITAL BREAST TOMOSYNTHESIS, BILATERAL Limited left breast ultrasound. CLINICAL INFORMATION: Original order stated right breast lump. The patient states she does not have a right breast lump and may have had outside imaging in her 30s. for one. A left asymmetry with distortion is seen on today's mammography CC view. COMPARISON: Mammography: Comparison is made with relevant prior exams. TECHNIQUE: Digital breast mammography with tomosynthesis is performed in both the craniocaudal and mediolateral oblique views along with computer-aided detection (CAD). FINDINGS: There are scattered areas of fibroglandular density (ACR BI-RADS breast composition Category b). Right: There are no significant masses, abnormal calcifications, or other abnormalities. Left: Asymmetry retroareolar region middle depth on CC view with associated distortion. No suspicious calcifications or other abnormal findings. Targeted color Doppler ultrasound demonstrates a hypoechoic solid mass at 11:00 5 cm from nipple measuring 2 x 4 x 4 mm which correlates with the asymmetry and distortion on mammography. Results are provided to the patient at time of visit by the technologist. US/US breast LT limited mamm only IMPRESSION: Right: Negative. Left: Solid mass on ultrasound 11:00 correlating with the mammographic asymmetry. Recommend ultrasound-guided core needle biopsy at this time for confirmation. The findings and recommendations were discussed with the patient the procedure will be scheduled. ASSESSMENT: BI-RADS BI-RADS 4 - Suspicious finding RECOMMENDATION: Biopsy recommended This patient's information was entered into a reminder system with a target due date for their next mammogram. Electronically signed by: Génesis Simms DO 09/09/2024 01:34 PM EDT
== END 2024-09-09 12:02 | disposition home or self-care (01) ==
LOC: HO.MAMMO 12:01
PROVIDERS: PCP Internal Medicine; Visit Provider Internal Medicine
DX: N64.89 Other specified disorders of breast (principal); Z87.898 Personal history of other specified conditions
CPT/HCPCS: 76642; 77062; 77066

== ENCOUNTER → 2024-09-09 12:30 | Outpatient (BNV) | payer MEDICARE, SELFPAY | PROVIDERS: PCP Internal Medicine; Visit Provider Internal Medicine | DX: R92.8 Other abnormal and inconclusive findings on diagnostic imaging of breast (principal) | CPT/HCPCS: 76642; 77066; G0279 ==

== ENCOUNTER 2024-09-14 08:48 | Outpatient (REF) | payer MEDICARE, SELFPAY ==
[2024-09-14 09:08] LABS: MANUAL DIFF FLAG NO
[2024-09-14 09:41] LABS: Basophils Percent Auto 0.3 % (0-2); Eosinophils Absolute Auto 0.3 X10*3/uL (0.0-0.4); Eosinophils Percent Auto 2.5 % (0-4); Hematocrit 38.4 % (37.0-47.0); Hemoglobin 12.4 g/dl (12.0-16.0); Imm Gran Abs Auto 0.03 X10*3/uL (0.00-0.03); Imm Gran Pct Auto 0.3 % (0.0-0.4); Lymphocytes Absolute Auto 2.6 X10*3/uL (1.2-4.9); Lymphocytes Percent Auto 25.5 % (20-40); Mean Corpuscular HGB Conc 32.3 g/dl (31.0-35.0); Mean Corpuscular Hemoglobin 25.8 pg (27.0-33.0); Mean Platelet Volume 10.2 fL (9.4-12.3); Monocytes Absolute Auto 0.6 X10*3/uL (0.1-1.2); Monocytes Percent Auto 5.4 % (2-11); Neutrophils Absolute Auto 6.8 x10*3/uL (2.0-8.3); Platelet Count 231 X10*3/uL (160-400); Red Cell Distribution Width 13.9 % (11.0-16.0); White Blood Count 10.3 X10*3/uL (4.8-10.8)
[2024-09-14 09:51] LABS: Estimated Average Glucose 192 mg/dL; Hemoglobin A1c % 8.3 % (<6.0); Total Hemoglobin (HGBA1C) 3291.2228 umol/L
[2024-09-14 10:17] LABS: Parathyroid Hormone Intact 96.3 pg/mL (8.7-77.1)
[2024-09-14 10:37] LABS: Magnesium 1.7 mg/dL (1.6-2.6); Phosphorus 4.3 mg/dL (2.7-4.5)
[2024-09-14 10:47] LABS: TSH reflex Free T4 0.05 uIU/mL (0.32-4.0); Vitamin D 25-OH Total 29.4 ng/mL (>30)
[2024-09-14 11:07] LABS: Folate 14.2 ng/mL (> or = 4.0); Vitamin B12 442 pg/mL (200-900)
[2024-09-14 13:26] LABS: Free T4 (Free Thyroxine) 0.99 ng/dL (0.71-1.85)
== END 2024-09-14 08:49 | disposition home or self-care (01) ==
LOC: HO.LAB 08:48
PROVIDERS: PCP Internal Medicine; Visit Provider Physician Assistant Medical
DX: Z00.00 Encounter for general adult medical examination without abnormal findings (principal); Z13.1 Encounter for screening for diabetes mellitus; Z13.29 Encounter for screening for other suspected endocrine disorder; Z13.228 Encounter for screening for other metabolic disorders
CPT/HCPCS: 36415; 82306; 82607; 82746; 83036; 83735; 83970; 84100; 84439; 84443; 85025

== ENCOUNTER 2024-09-22 09:04 | Outpatient (REF) | payer MEDICARE, SELFPAY ==
--- OUTSIDE RECORDS SUMMARY | 2024-09-22 09:55 | XMS_ITS | Patient Health Record ---
Author Organization [facility] Address [address] [place] [address] Care Team Providers Care Executive Creative Director Name Role Phone Robert Franco Primary Care Provider [phone] Robert Franco Unavailable Unavailable Allergies No Known [...] Insured Coverage Start Date Coverage End Date [facility] [address] [address] [place] [phone] [id number] Kathy Cowan Self - patient is the insured Medical (General) History Medical History History ICD Code DM hypertension irregiular heart beat Surgical History Surgery Date(Month/Year) c section Hospitalization History Reason Date(Month/Year) as above
--- NOTE | 2024-09-22 10:23 | PM.PROC ---
Brief Operative Note Date of procedure: 09/22/24 Pre-op diagnosis: right superior 2.8 cm and isthmus 1.4 cm thyroid nodule FNA biopsy Post-op diagnosis: same Procedure: THYROID FINE NEEDLE ASPIRATION PROCEDURE NOTE ? PROCEDURE PERFORMED: Ultrasound-guided FNA of thyroid nodule ? OPERATORS: Dr. Monik Brown ? INDICATION: right superior 2.8 cm and isthmus 1.4 cm thyroid nodules; FNA performed to assess for malignancy ? DESCRIPTION OF PROCEDURE: The indications for FNA (to assess for malignancy) were reviewed with the patient in detail. Potential complications (e.g., bleeding, infection, damage to local structures, absence of clear diagnosis after FNA) were reviewed. Alternatives to FNA including conservative observation or surgery were described. The patient understood and agreed to proceed. This was documented by the signing of the written informed consent form. A time-out was performed to confirm the patient's identity and the site of planned FNA. The nodules of interest was identified using ultrasound (14 MHz linear array probe). The sites of FNA was then draped in the usual fashion and carefully cleaned and prepared using alcohol swabs. The skin at the previously-identified sites of needle insertion was iced and sprayed with numbing spray. First for the right superior 2.8 cm thyroid nodule , Under ultrasound guidance, _4_ passes were performed using a 1.5-inch, 25-gauge needle, and sample was obtained via capillary action. The needle tip was clearly visualized to be within the nodule at the time of sampling for _4_ of 4__ passes. Then for the isthmus 1.4 cm thyroid nodule , Under ultrasound guidance, _4_ passes were performed using a 1.5-inch, 25-gauge needle, and sample was obtained via capillary action. The needle tip was clearly visualized to be within the nodule at the time of sampling for _4_ of 4__ passes The patient tolerated the procedure well. There were no immediate complications. A small adhesive bandage was applied, and the patient was advised to take acetaminophen (rather than NSAIDs) for any discomfort and to report any signs of inflammation/infection or marked swelling. IMPRESSION: Technically successful ultrasound-guided fine needle aspiration of right superior 2.8 cm and isthmus 1.4 cm thyroid nodules. PLAN: The patient was advised that I will provide follow-up regarding the cytology result and any subsequent plans. Monik Brown MD Endocrinology Attending Condition: stable Disposition: same day
== END 2024-09-22 09:05 | disposition home or self-care (01) ==
LOC: HO.US 09:04
PROVIDERS: PCP Internal Medicine; Visit Provider Student in an Organized Health Care Education/Training Program
DX: E04.1 Nontoxic single thyroid nodule (principal); R89.6 Abnormal cytological findings in specimens from other organs, systems and tissues
CPT/HCPCS: 10005; 10006; 88173; 88305

== ENCOUNTER → 2024-09-22 09:04 | Outpatient (BNV) | payer MEDICARE, SELFPAY | PROVIDERS: PCP Internal Medicine; Visit Provider Student in an Organized Health Care Education/Training Program | DX: E04.2 Nontoxic multinodular goiter (principal) | CPT/HCPCS: 10005; 10006 ==

== ENCOUNTER 2024-09-30 14:02 | Outpatient (AMB) | payer MEDICARE, SELFPAY ==
--- NOTE | 2024-09-30 14:28 | MHC.PC.OV ---
Vital Signs 09/30/24 14:29 Height 5 ft 2 in Weight 218 lb 6 oz BMI 39.9 BP 140/80 H Blood Pressure Location Lt brachial Position Sitting Pulse 91 Pulse Source Pulse Oximeter Temp 97.5 F Temp Source Temporal Artery Scan Pulse Oximetry (%) 96 Oxygen Delivery Method Room Air Intake Visit Reasons: 3mth f/u Intake Note: Patient is here to follow up on DM, HTN, Lumbar radiculopathy.. Recreation Therapist Required: No Deputy Controller: Not Required per policy Accompanied by: Self / Same As Patient Allergies aspirin Allergy (Intermediate, Verified 09/30/24 14:29) Gastrointestinal Upset hydrochlorothiazide Allergy (Intermediate, Verified 09/30/24 14:29) Hypertension Tobacco use date assessed: 09/30/24 Fall risk assessment: No Falls in past year Last assessed Fall Risk: 09/30/24 Dental Screening Dental Screen Date: 06/30/24 [facility] Medical History (Updated 09/30/24 @ 15:15 by Maurice Moralez MD) Hyperparathyroidism Multiple thyroid nodules Positive colorectal cancer screening using Cologuard test (~04/30/24) HTN (hypertension) Type 2 diabetes mellitus Right sided sciatica Polyarthralgia Thyroid nodule Irregular heart beat Surgical History (Updated 09/30/24 @ 14:40 by GRAYSON Monteiro) History of biopsy History of colonoscopy (~06/23/20) History of tooth extraction History of toe surgery History of delivery Family History Mother Diabetes HTN (hypertension) Father Cardiomegaly Substance use disorder Social History Housing: House Alcohol intake: never Patient Tobacco Use Status: Former Tobacco user e-Cigarette/Vaping Use: Never Used Second Hand Smoke Exposure: Yes service: No Current occupational status: retired Cognitive needs: Yes (cane) Hearing needs: No Vision needs: Yes (glasses) Questionnaire Thrive Questionnaire Date Thrive assessed: 06/30/24 NALINI-7 AMB Questionnaire NALINI-7 Date NALINI - 7 assessed: 06/30/24 Source: Developed by Drs. Jesse Cui, Beatrice Casas, Les Bhatia and colleagues, with an educational harlan from [employer]. Physical exam (Primary Care) Vital Signs: Last Vital Signs Temp 97.5 F 09/30/24 14:29 Pulse 91 09/30/24 14:29 BP 140/80 H 09/30/24 14:29 Pulse Ox 96 09/30/24 14:29 Oxygen Delivery Method Room Air 09/30/24 14:29 BMI result Body Mass Index 39.9 Tobacco/Smoking Status: Tobacco use Status Tobacco use date assessed 09/30/24 09/30/24 14:31 Patient Tobacco Use Status Former Tobacco user 09/30/24 14:31 e-Cigarette/Vaping Use Never Used 09/30/24 14:31 Thrive Assessment: Date of Thrive Assessment Date Thrive assessed 06/30/24 09/30/24 14:31 Coding Level of Care Code Est Pt Level 4 (48564) Complex EM visit Add On G2211 Diagnoses Thyroid nodule E04.1 Hyperparathyroidism E21.3 Type 2 diabetes mellitus E11.9 Positive colorectal cancer screening using Cologuard test R19.5 Assessment & Plan Assessment & Plan (1) Thyroid nodule: Comment: Multiple thyroid nodules, U/S October 2022 Recommended 1 year Follow up Code(s): E04.1 - Nontoxic single thyroid nodule Category: Medical Plan: Patient has an upcoming appointment with the dietary aide to discuss her thyroid nodule biopsy results. I suggested she discuss her elevated parathyroid levels in addition. (2) Hyperparathyroidism: Code(s): E21.3 - Hyperparathyroidism, unspecified Category: Medical Plan: As above. (3) Type 2 diabetes mellitus: Code(s): E11.9 - Type 2 diabetes mellitus without complications Category: Medical Plan: Short-acting insulin dosage increased to 20 units 3 times a day. (4) Positive colorectal cancer screening using Cologuard test: Code(s): R19.5 - Other fecal abnormalities Plan: Patient was encouraged to get a screening colonoscopy. Plan History of Present Illness The patient is a 68-year-old female presenting with poorly controlled diabetes mellitus type 2, evidenced by a Hemoglobin A1c level of 8.3%. She administers insulin at 18 units twice daily and at 70 units in the evening. Yet, her diabetes management remains unsatisfactory. There is no current engagement with an dietary aide. The patient reports elevated parathyroid hormone levels without detailed follow-up information. A biopsy was conducted by Dr. Monet, and she awaits results, with plans to review findings on the of the month. Persistent low back pain plagues the patient, with previous consultations ruling out her hips and knees as pain sources. A further evaluation with a back specialist is scheduled for November 04. The patient?s recent Cologuard test yielded positive, prompting recommendations for a colonoscopy to rule out malignancy. However, her primary concern regarding the influence of her hemorrhoids on test accuracy left the procedure pending. A recent mammogram was unremarkable, though a biopsy is planned next week to explore a long-standing breast mass presence. Social History - Exercise: Limited due to back pain, attempts gentle arm and leg movements, ambulates as tolerated. - Functional Status: Managing daily routines with accommodation for back discomfort. - Level of Activity: Limited due to back issues. - Nutritional Intake: Discussions of weight concerns, implies dietary considerations, though specifics not detailed. - Housing: Not discussed. - Employment: Not discussed. - Substance Use: Not discussed. Review of Systems - Musculoskeletal: Reports low back pain. - Endocrine: Reports elevated parathyroid hormone levels. - Hematologic/Lymphatic/Immunologic: Denies any acute illnesses. Physical Exam General: Cooperative and healthy appearing Nutritional Appearance: Well nourished Orientation/consciousness: Patient oriented x3 Limitations: No limitations Head: Normal to inspection General: Appearance normal, both eyes and all related structures Neck: Normal visual inspection Chest: Normal palpation of entire chest wall Respiratory: N ormal respiratory effort Neurology: Patient oriented x3, reports back pain from neck to lower back, worsens with certain exercises. Results - Labs: Hemoglobin A1c level is 8.3%. - Tests: Cologuard test positive. - Diagnostics: Recent mammogram normal; awaiting breast biopsy results. Plan The patient's Hemoglobin A1c indicates that diabetes management requires adjustment; therefore, an increased insulin dosage is recommended to achieve better glycemic control. Monitoring of blood glucose levels is emphasized. While endocrinology referral is advisable, it was not planned at this juncture. Ongoing biopsy analyses following elevated parathyroid hormone levels need confirmation, wary of complications by pending detailed evaluation on the . Back pain may benefit from specialist insight scheduled for November 04, focusing on identifying potential lumbar origins. A colonoscopy is prudent due to the positive Cologuard test despite concerns over hemorrhoidal interference. Awaiting further outcomes from a forthcoming biopsy concerning breast mass to establish whether additional measures are warranted. Patient was informed and verbally consented to the use of an ambient scribe for clinic note documentation during this visit. Discussion Notes I discussed the significance of maintaining optimal glycemic control and proposed increasing her insulin dose to three times daily. We deliberated on the risks of hypoglycemia and the necessity of vigilant monitoring. The patient understands potential referral to endocrinology, although it wasn?t pursued in this visit. I detailed the rationale for a colonoscopy despite hemorrhoid concerns, underlining the Cologuard test's positive result, with risks and merits reviewed, leading to provisional consent. We explored the implications of the mammogram and pending biopsy results, emphasizing the importance of receiving those outcomes. The back specialist appointment aims to elucidate her back pain contributory factors. Scheduled follow-ups will address problem-solving any diagnostic progression or complications. Patient Instructions - Increase insulin dosage to 20 units, three times a day. - Monitor blood sugar levels vigilantly to avoid hypoglycemia. - Keep upcoming appointments for biopsy results and see the back specialist as scheduled. - Arrange for a colonoscopy to further investigate the positive Cologuard test. - Contact me promptly with any new or worsening symptoms, especially concerning unexplained bleeding or worsened pain. Orders: Referrals Gastroenterology Referral Z12.11 - Encounter for screening for malignant neoplasm of colon
[2024-09-30 14:29] VITALS: BP 140/80; PULSE 91; TEMP 36.4; O2SAT 96; BMI 39.9
--- OUTSIDE RECORDS SUMMARY | 2024-09-30 16:51 | XMS_ITS | Patient Health Record ---
Author Organization [facility] Address [address] [place] [address] Care Team Providers Care Kitchen Bath Designer Name Role Phone Robert Franco Primary Care [...] Insured Coverage Start Date Coverage End Date [facility] [address] [address] [place] [phone] [id number] Kathy Cowan Self - patient is the insured Medical (General) History Medical History History ICD Code DM hypertension irregiular heart beat Surgical History Surgery Date(Month/Year) c section Hospitalization History Reason Date(Month/Year) as above
== END 2024-09-30 15:07 | disposition home or self-care (01) ==
LOC: HO.HMCH 14:03
PROVIDERS: PCP Internal Medicine; Visit Provider Internal Medicine
DX: E04.1 Nontoxic single thyroid nodule (principal); E21.3 Hyperparathyroidism, unspecified; E11.9 Type 2 diabetes mellitus without complications; R19.5 Other fecal abnormalities

== ENCOUNTER → 2024-09-30 14:02 | Outpatient (BNVA) | payer MEDICARE, SELFPAY | PROVIDERS: PCP Internal Medicine; Visit Provider Internal Medicine | DX: E11.9 Type 2 diabetes mellitus without complications (principal); I10 Essential (primary) hypertension; E04.1 Nontoxic single thyroid nodule; E21.3 Hyperparathyroidism, unspecified; R19.5 Other fecal abnormalities; M54.50 Low back pain, unspecified; Z79.4 Long term (current) use of insulin | CPT/HCPCS: 99212 ==

== ENCOUNTER 2024-10-06 08:01 | Outpatient (AMB) | payer MEDICARE, SELFPAY ==
--- OUTSIDE RECORDS SUMMARY | 2024-10-06 08:06 | XMS_ITS | Patient Health Record ---
Author Organization [facility] Address [address] [place] [address] Care Team Providers Care Temperature Control Inspector Name Role Phone Robert Franco Primary Care [...] End Date [facility] [address] [address] [place] [address] [id number] Kathy Cowan Self - patient is the insured Medical (General) History Medical History History ICD Code DM hypertension irregiular heart beat Surgical History Surgery Date(Month/Year) c section Hospitalization History Reason Date(Month/Year) as above
--- NOTE | 2024-10-06 08:14 | MHC.OFFVIS ---
Vital Signs 10/06/24 08:30 Height 5 ft 2 in Weight 222 lb 6 oz BMI 40.7 BP 197/91 H Blood Pressure Location Lt brachial Position Sitting Pulse 95 Intake Visit Reasons: US Biopsy, lft breast 11-12 o'clock cemetry Intake Note: Patient is seen in office for ultrasound biopsy CONSULT for left breast 11-12 o'clock asymmetry. Pt c/o: since the age of 35 yrs old has a lump, has been monitored with no issues, this time they recommended a bx, no prior breast surgeries or complications, denies fm history of breast cancer Personal Coach Required: No Senior Geotechnical Engineer: Senior Geotechnical Engineer Present Accompanied by: Self / Same As Patient Allergies aspirin Allergy (Intermediate, Verified 10/06/24 08:27) Gastrointestinal Upset hydrochlorothiazide Allergy (Intermediate, Verified 10/06/24 08:27) Hypertension Medication List - Last Reconciled 10/06/24 by Antonio Nguyen MD atenolol 100 mg PO DAILY atorvastatin 10 mg PO BEDTIME flash glucose sensor (FreeStyle Ela 2 Sensor kit) check bs 4 times a day insulin glargine (Lantus Solostar U-100 Insulin) 70 units (0.7 mL) subcut DAILY 30 days insulin lispro 20 units subcut TID pen needle, diabetic (BD Ultra-Fine Micro Pen Needle) As directed valsartan 80 mg PO DAILY HPI HPI US Biopsy, lft breast 11-12 o'clock cemetry: Details: [age] year old female referred for a left breast mass. She had a mammogram and ultrasound last September 09, 2024. This showed a hypoechoic solid mass at the 11 o'clock position, 2 x 4 x 4 mm in size. She was recommended to undergo an ultrasound-guided biopsy She says she does not feel any mass She has been undergoing mammograms every year. Her menarche was at the age of 12. Her 1st was at the age of 53. She had 2 pregnancies although only 1 of them was completed to full term She denies any family history of breast cancer. [facility] Medical History (Updated 10/06/24 @ 08:49 by Antonio Nguyen MD) Morbid obesity Left breast mass Hyperparathyroidism Multiple thyroid nodules Positive colorectal cancer screening using Cologuard test (~04/30/24) HTN (hypertension) Type 2 diabetes mellitus Right sided sciatica Polyarthralgia Thyroid nodule Irregular heart beat Surgical History History of biopsy History of colonoscopy (~06/23/20) History of tooth extraction History of toe surgery History of delivery Family History Mother Diabetes HTN (hypertension) Father Cardiomegaly Substance use disorder Social History Housing: House Alcohol intake: never Patient Tobacco Use Status: Former Tobacco user e-Cigarette/Vaping Use: Never Used Second Hand Smoke Exposure: Yes service: No Current occupational status: retired Cognitive needs: Yes (cane) Hearing needs: No Vision needs: Yes (glasses) Review of Systems Const Denies chills and Denies fever(s) Card Denies chest pain, Denies dyspnea and Denies dyspnea on exertion Resp Denies cough, Denies dyspnea and Denies dyspnea on exertion GI Denies hematochezia and Denies change in bowel habits Denies hematuria Musc Denies back pain and Denies limited range of motion Neuro Denies focal weakness and Denies convulsions Psych Denies depression and Denies mood swings Physical Exam Vital Signs: Last Vital Signs Pulse 95 10/06/24 08:30 BP 197/91 H 10/06/24 08:30 BMI result Body Mass Index 40.7 Const Other: Morbidly obese General: comfortable and no acute distress Orientation/consciousness: patient oriented x3 Neck Neck: Yes no lymphadenopathy Chest Other: No palpable breast masses, no nipple or skin changes, no axillary lymphadenopathy Resp Auscultation: clear to auscultation bilaterally Cardio Rhythm: regular rhythm GI Palpation (GI): Soft to palpation, nontender and no guarding Neuro General: patient oriented x3 Assessment & Plan Assessment & Plan (1) Left breast mass: Code(s): N63.20 - Unspecified lump in the left breast, unspecified quadrant Category: Medical Plan: She has this small hypoechoic solid mass seen on imaging studies on the left breast at the 11 o'clock position. An ultrasound-guided biopsy was recommended. She understands the technique of the planned procedure I will see her again in the office next week to discuss the path report. Orders: Orders US breast ndl core biopsy LT 10/05/24 N63.20 - Unspecified lump in the left breast, unspecified quadrant Coding Level of Care Code New Pt Level 3 (41226) Diagnoses Left breast mass N63.20
[2024-10-06 08:30] VITALS: BP 197/91; PULSE 95; BMI 40.7
== END 2024-10-06 08:54 | disposition home or self-care (01) ==
PROVIDERS: PCP Internal Medicine; Visit Provider Surgery
DX: N63.20 Unspecified lump in the left breast, unspecified quadrant (principal)
CPT/HCPCS: 99203

== ENCOUNTER 2024-10-06 09:01 | Outpatient (REF) | payer MEDICARE, SELFPAY ==
--- NOTE | ~2024-10-06 | MM_ITS ---
PROCEDURE: ULTRASOUND-GUIDED LEFT BREAST BIOPSY CLINICAL INFORMATION: Left breast solid irregular mass at 11:00 5 cm from the nipple. COMPARISON: [facility] on PACS. TECHNIQUE: The details of the procedure, as well as the risks, benefits, and alternatives to the procedure were explained to the patient in detail and all of her questions were answered, after which, written informed consent was obtained. PROCEDURE: Prior to the procedure, sonography revealed irregular mass at 11:00 5 cm from the nipple correlating with a focal asymmetry with architectural distortion on mammography. A time-out was performed, the lesion intended for biopsy was targeted and the skin of the left breast was then prepped and draped in the usual sterile fashion. Using sonographic guidance, sterile technique, and 1% lidocaine without epinephrine for local anesthesia, a total of 6 cores were obtained through the targeted area with a 14-gauge biopsy device. At the completion of tissue sampling, a single butterfly metallic clip was deposited at the biopsy site. An appropriate sample was obtained. The postprocedure 2-view direct digital mammogram reveals satisfactory positioning of the biopsy clip. The patient tolerated the procedure well and, after assuring adequate hemostasis, was discharged in good condition after reviewing postbiopsy breast care instructions. Final pathology results are pending. MM/MM tomosynthesis diagnostic LT IMPRESSION: 1. Uncomplicated sonographically-guided core biopsy of the left breast. The 2-view direct digital postprocedure mammogram reveals satisfactory positioning of the biopsy clip. 2. Final pathology results are pending. A separate report with final recommendations will be issued once these results are made available. Electronically signed by: Génesis Simms DO 10/07/2024 02:24 PM EDT
[2024-10-06] MEDS: Sodium Bicarbonate 8.4% 50 MEQ/50 ML VIAL SUBCUT (11:02)
[2024-10-06] MEDS: Lidocaine HCl 1 % 20 ML VIAL 8 ML SUBCUT (11:03)
== END 2024-10-06 09:02 | disposition home or self-care (01) ==
LOC: HO.MAMMO 09:01
PROVIDERS: PCP Internal Medicine; Visit Provider Surgery
DX: N63.21 Unspecified lump in the left breast, upper outer quadrant (principal); D05.02 Lobular carcinoma in situ of left breast
CPT/HCPCS: 19083; 77061; 77065; 88305; 88342; 88360; 99202; A4648; A6260; J2003

== ENCOUNTER → 2024-10-06 10:00 | Outpatient (BNV) | payer MEDICARE, SELFPAY | PROVIDERS: PCP Internal Medicine; Visit Provider Internal Medicine | DX: C50.212 Malignant neoplasm of upper-inner quadrant of left female breast (principal) | CPT/HCPCS: 19083; 77065 ==

== ENCOUNTER 2024-10-13 13:01 | Outpatient (AMB) | payer MEDICARE, SELFPAY ==
[2024-10-13 13:03] VITALS: BP 170/100; PULSE 83; O2SAT 97; BMI 40.6
--- NOTE | 2024-10-13 13:03 | A.OFFVIS_ITS ---
Vital Signs 3 10/13/24 13:03 10/13/24 13:31 Height 5 ft 2 in Weight 221 lb 12.56 oz BMI 40.6 BP 170/100 H 160/90 H Blood Pressure Location Lt brachial Position Sitting Pulse 83 Pulse Source Pulse Oximeter Pulse Oximetry (%) 97 Oxygen Delivery Method Room Air Intake Visit Reasons: Biopsy f/u Intake Note: Patient present today for biopsy results. 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 Required: No Accompanied by: Self / Same As Patient Allergies aspirin Allergy (Intermediate, Verified 10/13/24 13:09) Gastrointestinal Upset hydrochlorothiazide Allergy (Intermediate, Verified 10/13/24 13:09) Hypertension Medication List - Last Reconciled 10/13/24 by Monik Brown MD atenolol 100 mg PO DAILY atorvastatin 10 mg PO BEDTIME flash glucose sensor (FreeStyle Ela 2 Sensor kit) check bs 4 times a day insulin glargine (Lantus Solostar U-100 Insulin) 70 units (0.7 mL) subcut DAILY 30 days insulin lispro 20 units subcut TID pen needle, diabetic (BD Ultra-Fine Micro Pen Needle) As directed valsartan 80 mg PO DAILY HPI Comments Details: 68-year-old female coming in today for follow up of Nontoxic multinodular goiter. HPI Diagnosed in 2022 in [place]. Was told she needed a repeat US in 1 year, no FNA done. 07/28/2024: Ultrasound of the thyroid, I reviewed the images myself which showed a right superior pole nodule measuring 2.8 cm which is solid, hypoechoic, even though the report says extrathyroidal extension, this is not very clear on the imaging, this is somewhere between a TR 4 versus a TR 5 nodule. Regardless meets criteria for FNA.Another right mid lobe 1 cm TR 4 nodule with peripheral calcifications. A right inferior pole 1.6 cm solid hypoechoic TR 4 category nodule that does meet criteria for FNA. She also has a an isthmus 1.4 cm solid hypoechoic nodule with a extrathyroidal extension, TR 5 category nodule. Also meets criteria for FNA. And lastly a left inferior pole 1.5 cm solid isoechoic TR 3 category nodule. Patient currently denies heat or cold intolerance, diarrhea or constipation, hair loss, , anxiety, weight changes, mood changes, low energy, changes in appearance of eyes or vision changes, tremors, increased diaphoresis or dry skin. ? Has an irregular heart beat. Patient denies any difficulty swallowing, pain on swallowing or voice changes or difficulty breathing. Patient denies any history of childhood neck radiation. Denies having ever used lithium, amiodarone or biotin supplements. Patient denies any family history of thyroid cancer . 2 neices have thyroid disease, unclear which one but take medication so likley hypothyroidism. No recent TFTs. 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 Interval history 09/14/2024: TSH 0.05, free T4 0.99, today she denies any tremors, heat intolerance, does have chronic palpitations, she is complaining of a few episodes of loose stools. No weight loss. No mood changes. 09/22/2024: Underwent FNA of the right superior 2.8 cm nodule: AUS with nuclear atypia [place] category 3, Afirma suspicious ( 50% risk of malignancy); as well as the isthmus 1.4 cm nodule which came back as AUS with nuclear atypia [place] category 3, Afirma benign (4% risk of malignancy) Physical exam General: sitting comfortably in no acute distress HEENT: normocephalic/atraumatic Neck: supple, isthmus 2 cm palpable nodule Cardiac: normal heart sounds Pulm: normal breath sounds B/L, no added breath sounds Abd: not distended, no tenderness Laboratory Tests 06/11/23 08:19 TSH 0.51 Laboratory Tests 09/14/24 08:58 TSH 0.05 L Free T4 0.99 US THYROID 07/28/24 CLINICAL INFORMATION: Nontoxic single thyroid nodule. COMPARISON: None available. TECHNIQUE: Linear transducer grayscale and color Doppler examination with attention to the region of the thyroid. FINDINGS: SIZE: Measurements of the thyroid lobes and nodules are given in sagittal, anteroposterior and transverse dimensions respectively. Right Thyroid Lobe: 6.3 x 3.1 x 2.6 cm, volume 26.7 mL. Parenchyma: The gland echotexture is heterogeneous. Thyroid vascularity is increased. Left Thyroid Lobe: 6.2 x 2.5 x 1.9 cm, volume 15.7 mL. Parenchyma: The gland echotexture is heterogeneous. Thyroid vascularity is increased. Isthmus: 1.0 cm in maximum AP dimension. Estimated total number of nodules greater than or equal to 1 cm: 5. Distribution Sales Representative nodules are described as follows: 1. Location: upper right thyroid lobe. Size: 2.2 x 2.0 x 2.8 cm, volume 6.56 mL. Nodule characteristics: Composition: Solid/almost completely solid (2). Echogenicity: Hypoechoic (2). Shape: Not taller than wide (0). Margins: 3 Echogenic Foci: No 0 ACR TI-RADS total points: 7 ACR TI-RADS category: 5 2. Location: Midportion, right thyroid lobe. Size: 1.0 x 1.1 x 1.1 cm, volume 0.64 mL. Nodule characteristics: Composition: Solid (2). Echogenicity: Undetermined (1) Shape: Not taller than wide (0). Margins: Smooth (0). Echogenic Foci: Peripheral calcifications (2). ACR TI-RADS total points: 5 ACR TI-RADS category: 4 3. Location: Lower pole, right thyroid lobe. Size: 1.6 x 1.1 x 1.1 cm, volume 1.01 mL. Nodule characteristics: Composition: Solid/almost completely solid (2). Echogenicity: Hypoechoic (2). Shape: Not taller than wide (0). Margins: Smooth (0). Echogenic Foci: None (0). ACR TI-RADS total points: 4 ACR TI-RADS category: 4 4. Location: Thyroid isthmus. Size: 1.4 x 1.0 x 0.9 cm, volume 0.94 mL. Nodule characteristics: Composition: Solid (2). Echogenicity: Hypoechoic (2). Shape: Not taller than wide (0). Margins: 3 Echogenic Foci: None (0). ACR TI-RADS total points: 7 ACR TI-RADS category: 5 5. Location: [Left Thyroid lobe mid portion. Size: 1.5 x 1.2 x 1.4 cm, volume 1.29 mL. Nodule characteristics: Composition: Solid (2). Echogenicity: Isoechoic (1). Shape: Not taller than wide (0). Margins: Smooth (0). Echogenic Foci: None (0). ACR TI-RADS total points: 3 ACR TI-RADS category: 3 NODES: No lymphadenopathy is seen in the tissue surrounding the thyroid gland. US/US thyroid IMPRESSION: ACR TI RADS category 4 and 5 ACR TI-RADS RECOMMENDATION REFERENCE: Ultrasound-guided fine-needle aspiration, followup ultrasound, no further follow up. * TR1 (0 point) and TR2 (2 points): No FNA or follow up. * TR3 (3 points): FNA if more than or equal to 2.5 cm in maximum dimension, followup ultrasound in 1, 3 and 5 years if 1.5 to 2.4 cm in maximum dimension. * TR4 (4-6 points): FNA if more than or equal to 1.5 cm in maximum dimension, followup ultrasound in 1, 2, 3 and 5 years if 1 to 1.4 cm in maximum dimension. * TR5 (more than or equal to 7 points): FNA if more than or equal to 1 cm in maximum dimension, followup ultrasound every year for 5 years if 0.5 to 0.9 cm in maximum dimension. * TR3, TR4 or TR5 nodules that are below the size threshold for followup receive no follow up. Electronically signed by: Christophe Chaudhry MD 08/03/2024 08:29 AM [facility] Medical History (Updated 10/06/24 @ 08:49 by Antonio Nguyen MD) Morbid obesity Left breast mass Hyperparathyroidism Multiple thyroid nodules Positive colorectal cancer screening using Cologuard test (~04/30/24) HTN (hypertension) Type 2 diabetes mellitus Right sided sciatica Polyarthralgia Thyroid nodule Irregular heart beat Surgical History History of biopsy History of colonoscopy (~06/23/20) History of tooth extraction History of toe surgery History of delivery Family History Mother Diabetes HTN (hypertension) Father Cardiomegaly Substance use disorder Social History Housing: House Alcohol intake: never Patient Tobacco Use Status: Former Tobacco user e-Cigarette/Vaping Use: Never Used Second Hand Smoke Exposure: Yes service: No Current occupational status: retired Cognitive needs: Yes (cane) Hearing needs: No Vision needs: Yes (glasses) Assessment & Plan Assessment & Plan (1) Multiple thyroid nodules: Code(s): E04.2 - Nontoxic multinodular goiter Category: Medical Plan: 68-year-old female With no personal history of head or neck radiation, no family history of thyroid cancer here today for follow up of nontoxic multinodular goiter. diagnosed in 2022. In 2022 her ultrasound was done in [place]. She recently moved to [place]. 07/28/2024: Ultrasound of the thyroid, I reviewed the images myself which showed a right superior pole nodule measuring 2.8 cm which is solid, hypoechoic, even though the report says extrathyroidal extension, this is not very clear on the imaging, this is somewhere between a TR 4 versus a TR 5 nodule. Regardless meets criteria for FNA.Another right mid lobe 1 cm TR 4 nodule with peripheral calcifications. A right inferior pole 1.6 cm solid hypoechoic TR 4 category nodule that does meet criteria for FNA. She also has a an isthmus 1.4 cm solid hypoechoic nodule with a extrathyroidal extension, TR 5 category nodule. Also meets criteria for FNA. And lastly a left inferior pole 1.5 cm solid isoechoic TR 3 category nodule. 09/14/2024: TSH 0.05, free T4 0.99 09/22/2024: Underwent FNA of the right superior 2.8 cm nodule: AUS with nuclear atypia [place] category 3, Afirma suspicious ( 50% risk of malignancy); as well as the isthmus 1.4 cm nodule which came back as AUS with nuclear atypia [place] category 3, Afirma benign (4% risk of malignancy) she does not have any compressive symptoms. At this time I discussed with the patient that given the right superior nodule came back as suspicious on molecular genetics, she needs a diagnostic lobectomy with then requiring possibly completion thyroidectomy if thyroid cancers found on pathology versus consideration of total thyroidectomy given multiple bilateral nodules. I will refer her to Dr. Shayne Shore at [facility] for surgical evaluation. I did note that on her last set of labs from August 2024 her TSH was low, could she also possibly have underlying toxic multinodular goiter or a toxic adenoma are autoimmune thyroid disease. I will have her repeat labs today, she does not have any significant symptoms of hyperthyroidism and no signs on my exam. However if her labs again come back significant for an overactive thyroid, I would like to also get an uptake and scan on her to see which of her nodules are cold or hot if she has toxic multinodular goiter that could further help tell us regarding risk of possible cancer and a nodule. Also given her age and with a TSH less than 0.1, this needs to be further investigated. In case she has underlying autoimmune thyroid disease she would be a better candidate for total thyroidectomy. Plan: Ordered TSH, free T4, total T3, TSI, TSH receptor and TPO antibodies -we will consider a thyroid uptake and scan based on blood work results and we will reach out with the patient -sent referral to Dr. Shayne Shore at [facility] for surgical evaluation -follow up in 5 weeks to discuss results Note: BP elevated in office today at 170/100 mm Hg. I repeated the reading myself and came at 160/90. Patient endorses that she rushed in today and she is also worried about her biopsy results for her breast biopsy. Patient said that she has a blood pressure cuff at home and I will let her know that her blood pressure was elevated even in the last time she visited us and she might need blood pressure medication adjustment. I have asked her to reach out to her PCP's office to discuss blood pressure readings and see if medications need to be adjusted. Patient verbalized understanding. Plan I spent 30 minutes in reviewing the record, seeing the patient and documenting in the medical record. Orders: Orders 2 Thyroid Stimulating Hormone Today E04.2 - Nontoxic multinodular goiter Triiodothyronine T3 Total Today E04.2 - Nontoxic multinodular goiter Thyrotropin Receptor Antibody Today E04.2 - Nontoxic multinodular goiter Thyroid Peroxidase Antibodies Today E04.2 - Nontoxic multinodular goiter Free T4 (Free Thyroxine) Today E04.2 - Nontoxic multinodular goiter Thyroid Stimulating Immunoglob Today E04.2 - Nontoxic multinodular goiter Referrals 2 General Surgery Referral E04.2 - Nontoxic multinodular goiter Patient Instructions: do blood work today We are putting in a referral for enodrcine surgery Dr. Shore at [facility] , if your insurance doesnt work with them , we will send you to someone else Follow up in 5 weeks Coding Level of Care Code Est Pt Level 4 (63224) Diagnoses Multiple thyroid nodules E04.2 Time Spent (min) 30
[2024-10-13 13:31] VITALS: BP 160/90
== END 2024-10-13 13:37 | disposition home or self-care (01) ==
LOC: HO.ENCR 13:01
PROVIDERS: PCP Internal Medicine; Visit Provider Student in an Organized Health Care Education/Training Program
DX: E04.2 Nontoxic multinodular goiter (principal)
CPT/HCPCS: 99214

== ENCOUNTER → 2024-10-13 13:01 | Outpatient (BNVA) | payer MEDICARE, SELFPAY | PROVIDERS: PCP Internal Medicine; Visit Provider Student in an Organized Health Care Education/Training Program | DX: E04.2 Nontoxic multinodular goiter (principal) | CPT/HCPCS: 99212 ==

== ENCOUNTER 2024-10-14 09:24 | Outpatient (REF) | payer MEDICARE, SELFPAY ==
--- OUTSIDE RECORDS SUMMARY | 2024-10-14 10:18 | XMS_ITS | Patient Health Record ---
Author Organization [facility] Address [address] [place] [address] Care Team Providers Care Teacher Adult Education Name Role Phone Robert Franco Primary Care Provider [phone] Robert Franco Unavailable Unavailable Allergies No [...] Insured Coverage Start Date Coverage End Date [facility] [address] [address] [place] [address] [phone] [id number] Kathy Cowan Self - patient is the insured Medical (General) History Medical History History ICD Code DM hypertension irregiular heart beat Surgical History Surgery Date(Month/Year) c section Hospitalization History Reason Date(Month/Year) as above
[2024-10-14 11:18] LABS: Parathyroid Hormone Intact 87.8 pg/mL (8.7-77.1)
[2024-10-14 11:36] LABS: TSH reflex Free T4 0.05 uIU/mL (0.32-4.0)
[2024-10-14 11:37] LABS: Free T4 (Free Thyroxine) 0.98 ng/dL (0.71-1.85)
[2024-10-14 11:43] LABS: Thyroid Stimulating Hormone 0.05 uIU/mL (0.32-4.0)
[2024-10-15 04:13] LABS: Triiodothyronine T3 Total 129 ng/dL (76-181)
[2024-10-15 20:59] LABS: Thyroid Peroxidase Antibodies <1 IU/mL (<9)
[2024-10-19 15:58] LABS: Thyroid Stimulating Immunoglob <89 % baseline (<140)
[2024-10-19 16:09] LABS: Thyrotropin Receptor Antibody <1.00 IU/L (<=2.00)
== END 2024-10-14 09:25 | disposition home or self-care (01) ==
LOC: HO.LAB 09:24
PROVIDERS: Physician Assistant Medical; PCP Internal Medicine; Visit Provider Student in an Organized Health Care Education/Training Program
DX: Z00.00 Encounter for general adult medical examination without abnormal findings (principal); E04.2 Nontoxic multinodular goiter; C50.912 Malignant neoplasm of unspecified site of left female breast; Z17.0 Estrogen receptor positive status [ER+]; Z17.32 Human epidermal growth factor receptor 2 negative status
CPT/HCPCS: 36415; 83520; 83970; 84439; 84443; 84445; 84480; 86376; 99212

== ENCOUNTER 2024-10-14 09:44 | Outpatient (AMB) | payer MEDICARE, SELFPAY ==
--- NOTE | 2024-10-14 09:43 | MHC.OFFVIS ---
Vital Signs 10/14/24 09:52 Height 5 ft 2 in Weight 221 lb 4 oz BMI 40.5 BP 184/81 H Blood Pressure Location Lt brachial Position Sitting Pulse 84 Intake Visit Reasons: s/p US Biopsy, lft breast 11-12 o'clock asymmetry Intake Note: Patient is seen in office for biopsy results following left breast mass at 11 o'clock. 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 She had a mammogram and ultrasound last September 09, 2024. This showed a hypoechoic solid mass at the 11 o'clock position, 2 x 4 x 4 mm in size. She was recommended to undergo an ultrasound-guided biopsy and this was done on 10/06/2024. She says she does not feel any mass She has been undergoing mammograms every year. Her menarche was at the age of 12. Her 1st was at the age of 53. She had 2 pregnancies although only 1 of them was completed to full term She denies any family history of breast cancer. [facility] Medical History (Updated 10/22/24 @ 15:59 by Sandra Ortega MD) Subclinical hyperthyroidism Invasive ductal carcinoma of breast Morbid obesity Left breast mass Hyperparathyroidism Multiple thyroid nodules Positive colorectal cancer screening using Cologuard test (~04/30/24) HTN (hypertension) Type 2 diabetes mellitus Right sided sciatica Polyarthralgia Thyroid nodule Irregular heart beat Surgical History (Updated 10/22/24 @ 13:28 by Sandra Ortega MD) History of biopsy History of colonoscopy (~06/23/20) History of tooth extraction History of toe surgery History of delivery Family History (Updated 10/22/24 @ 13:19 by Kenroy Chisholm) Mother Diabetes HTN (hypertension) Father Cardiomegaly Substance use disorder Maternal Grandmother Uterine cancer Maternal Aunt Colon cancer Social History Household Members: Family and Children Housing: House Alcohol intake: never Patient Tobacco Use Status: Former Tobacco user Tobacco use type: Cigarette e-Cigarette/Vaping Use: Never Used Second Hand Smoke Exposure: Yes service: No Current occupational status: retired Cognitive needs: Yes (cane) Hearing needs: No Vision needs: Yes (glasses) Physical Exam Vital Signs: Last Vital Signs Pulse 84 10/14/24 09:52 BP 184/81 H 10/14/24 09:52 BMI result Body Mass Index 40.5 Chest Other: No palpable breast masses, no axillary lymphadenopathy, no hematoma Assessment & Plan Assessment & Plan (1) Invasive ductal carcinoma of breast: Code(s): C50.919 - Malignant neoplasm of unspecified site of unspecified female breast Category: Medical Plan: Status post ultrasound biopsy of a left breast mass. Unfortunately, her path report shows an invasive lobular cancer, ERPR positive, HER2 negative. The proliferation index is low. I explained to her options. I discussed with the technique of left breast mastectomy with sentinel biopsy versus lumpectomy, with Hologic localization, with sentinel node biopsy which will be followed by whole breast radiation to complete treatment. I reviewed the risks and benefits of its option. She is a practicing Christianity. Because of this, I did tell her that the risk of hematoma and blood loss maybe much less with lumpectomy. She was therefore going for a lumpectomy, node biopsy and understands that she may need radiation postoperatively. I will set her up for a consultation with the oncologist in the meantime. I have arranged for an MRI of the left breast as recommended by the radiologist to further define the mass. Orders: Orders NM sentinel node w imaging 10/14/24 C50.919 - Malignant neoplasm of unspecified site of unspecified female breast Referrals Hematology & Oncology Referral C50.919 - Malignant neoplasm of unspecified site of unspecified female breast Coding Level of Care Code Est Pt Level 4 (48511) Diagnoses Invasive ductal carcinoma of breast C50.919
[2024-10-14 09:52] VITALS: BP 184/81; PULSE 84; BMI 40.5
== END 2024-10-14 10:47 | disposition home or self-care (01) ==
LOC: HO.HGS 09:45
PROVIDERS: PCP Internal Medicine; Visit Provider Surgery
DX: C50.919 Malignant neoplasm of unspecified site of unspecified female breast (principal)
CPT/HCPCS: 99214

== ENCOUNTER → 2024-10-18 13:14 | Outpatient (BNV) | payer MEDICARE, SELFPAY | PROVIDERS: PCP Internal Medicine; Visit Provider Internal Medicine | DX: R22.2 Localized swelling, mass and lump, trunk (principal) | CPT/HCPCS: 77049 ==

== ENCOUNTER 2024-10-18 13:37 | Outpatient (REF) | payer MEDICARE, SELFPAY ==
--- NOTE | ~2024-10-18 | MR_ITS ---
EXAMINATION: MR BREAST WITHOUT AND WITH CONTRAST, BILATERAL CLINICAL INFORMATION: Newly diagnosed left breast invasive lobular carcinoma. COMPARISON: None available. TECHNIQUE: MRI imaging of the breast was performed using T1-T2 and fat saturated techniques. Dynamic multiphase imaging was also performed after the administration of intravenous gadolinium contrast agent. Computer generated 3-D reconstruction was generated. FINDINGS: There is scattered fibroglandular breast tissue with LEFT BREAST: Susceptibility clip artifact in the retroareolar region slightly medial breast series 1039 image 76/126 from biopsy-proven invasive lobular carcinoma. The enhancing mass surrounding the clip measures approximately 16 mm anterior to posterior by 8 mm transverse. No other suspicious enhancing masses or areas of nonmass enhancement. No internal mammary or axillary adenopathy. RIGHT BREAST: There is an area of nonmass enhancement in the retroareolar region middle depth series 1039 image 82/126 measuring 24 mm anterior to posterior by 11 mm transverse. Otherwise there are scattered enhancing foci. No other suspicious enhancing area. No internal mammary or axillary adenopathy. Other: There is a T2 hyperintense enhancing superficial oval mass in the lateral chest wall series 1039 image 65/126 measuring 29 mm. Series 2 image 39/74. Limited views of the chest and abdomen are otherwise unremarkable. MR/MR breast BI wo/w con IMPRESSION: Right: 1. Area of nonmass enhancement in the retroareolar region measuring 24 mm. Given patient's recent diagnosis of left invasive lobular carcinoma recommend MRI core needle biopsy at this time for confirmation. 2. T2 hyperintense superficial subdermal mass in the lateral chest wall. Recommend ultrasound evaluation at this time. Left: Biopsy-proven invasive lobular carcinoma. Patient is under the care of a breast surgeon for excision and further management. No other suspicious enhancing masses or areas of nonmass enhancement. ASSESSMENT: LEFT BREAST: BI-RADS 6 biopsy-proven malignancy. The patient is under the care of a breast surgeon for excision and further management. RIGHT BREAST: BI-RADS 4 suspicious. MRI guided core needle biopsy is recommended at this time. Right chest wall ultrasound recommended for correlation of enhancing superficial subdermal mass. RECOMMENDATIONS: MRI guided core needle biopsy of the right breast. Ultrasound evaluation of the lateral right chest wall. Electronically signed by: Génesis Simms DO 10/19/2024 05:02 PM EDT
[2024-10-18] MEDS: gadobutroL 10 ML VIAL IVPUSH (15:18)
--- OUTSIDE RECORDS SUMMARY | 2024-10-18 16:17 | XMS_ITS | Patient Health Record ---
Author Organization [facility] Address [address] [place] [address] Care Team Providers Care Food Technician Name Role Phone Robert Franco Primary Care [...] Insured Coverage Start Date Coverage End Date [facility] [address] [address] [place] [address] [id number] Kathy Cowan Self - patient is the insured Medical (General) History Medical History History ICD Code DM hypertension irregiular heart beat Surgical History Surgery Date(Month/Year) c section Hospitalization History Reason Date(Month/Year) as above
== END 2024-10-18 13:38 | disposition home or self-care (01) ==
LOC: HO.MRI 13:37
PROVIDERS: PCP Internal Medicine; Visit Provider Surgery
DX: C50.919 Malignant neoplasm of unspecified site of unspecified female breast (principal)
CPT/HCPCS: 77049; A9585

== ENCOUNTER → 2024-10-22 12:58 | Outpatient (BNV) | payer MEDICARE, SELFPAY | PROVIDERS: PCP Internal Medicine; Referring Provider Surgery; Visit Provider Internal Medicine | DX: C50.212 Malignant neoplasm of upper-inner quadrant of left female breast (principal) | CPT/HCPCS: 99205; G2211 ==

== ENCOUNTER 2024-11-03 07:25 | Outpatient (REF) | payer MEDICARE, SELFPAY ==
--- NOTE | ~2024-11-03 | MM_ITS ---
EXAMINATION: MR GUIDED VACUUM-ASSISTED CORE BIOPSY BREAST, RIGHT MM DIGITAL MAMMOGRAPHY POST BIOPSY, RIGHT CLINICAL INFORMATION: Recently diagnosed left breast invasive lobular carcinoma. Suspicious enhancing area in the right breast on MRI. COMPARISON: Priors on PACS. TECHNIQUE/PROCEDURE: Informed consent was obtained from the patient after discussion of the benefits, risks, and alternatives to biopsy today. Patient appeared to understand. Gave opportunity for questions. Patient signed consent form. Biopsy is performed under MRI guidance using breast surface coil. Imaging is performed without and with use of Gadavist gadolinium contrast. [employer] introducer localization system is used with grid. LESION: Right breast upper central area of nonmass enhancement.. LOCAL ANESTHESIA: 5 mL 1% lidocaine; 6 mL 1% lidocaine with epinephrine. NEEDLE: myinfoQ 9-gauge vacuum assisted core biopsy device. APPROACH: Bilateral. CORES: 12. CLIP: TriMark barbell shaped. POSTPROCEDURE UNILATERAL DIGITAL MAMMOGRAM: Mammography is performed using digital mammography in CC and MLO views. There are scattered areas of fibroglandular density (ACR BI-RADS breast composition Category b). The clip marker is in position. No gross hematoma. The patient tolerated the procedure well. No immediate complications. Home instructions reviewed with the patient. Final pathology results are pending. MM/MM tomosynthesis diagnostic RT IMPRESSION: 1. Status post MRI guided vacuum-assisted core biopsy right breast with clip placement. 2. Final pathology results pending. An addendum report will be issued. Electronically signed by: Génesis Simms DO 11/03/2024 12:52 PM EDT
--- NOTE | ~2024-11-03 | US_ITS ---
EXAMINATION: US CHEST CLINICAL INFORMATION: Subdermal mass right lateral chest wall on prior MRI. COMPARISON: Priors on PACS. TECHNIQUE: Targeted color Doppler ultrasound of the right lateral chest wall directed by MRI finding subdermal enhancing mass. FINDINGS: Targeted color Doppler ultrasound scanning in the right lateral chest wall demonstrates a subdermal oval hyper: Mass with a few hypoechoic internal components measuring approximately 27 x 25 x 9 mm with internal vascular flow. US/US chest IMPRESSION: Hyperechoic subdermal oval solid mass with a few hypoechoic internal components measuring up to 27 mm while this mass has morphology consistent with a lipoma there are a few hypoechoic internal components and the patient has a recent history of left breast invasive ductal carcinoma. Ultrasound-guided core needle biopsy for confirmation is recommended and will be scheduled. Electronically signed by: Génesis Simms DO 11/03/2024 12:48 PM EDT
--- NOTE | ~2024-11-03 | MR_ITS ---
EXAMINATION: MR GUIDED VACUUM-ASSISTED CORE BIOPSY BREAST, RIGHT MM DIGITAL MAMMOGRAPHY POST BIOPSY, RIGHT CLINICAL INFORMATION: Recently diagnosed left breast invasive lobular carcinoma. Suspicious enhancing area in the right breast on MRI. COMPARISON: Priors on PACS. TECHNIQUE/PROCEDURE: Informed consent was obtained from the patient after discussion of the benefits, risks, and alternatives to biopsy today. Patient appeared to understand. Gave opportunity for questions. Patient signed consent form. Biopsy is performed under MRI guidance using breast surface coil. Imaging is performed without and with use of Gadavist gadolinium contrast. AteSensibleSelf introducer localization system is used with grid. LESION: Right breast upper central area of nonmass enhancement.. LOCAL ANESTHESIA: 5 mL 1% lidocaine; 6 mL 1% lidocaine with epinephrine. NEEDLE: MyCityFaces 9-gauge vacuum assisted core biopsy device. APPROACH: Bilateral. CORES: 12. CLIP: TriMark barbell shaped. POSTPROCEDURE UNILATERAL DIGITAL MAMMOGRAM: Mammography is performed using digital mammography in CC and MLO views. There are scattered areas of fibroglandular density (ACR BI-RADS breast composition Category b). The clip marker is in position. No gross hematoma. The patient tolerated the procedure well. No immediate complications. Home instructions reviewed with the patient. Final pathology results are pending. MR/MR guided breast biopsy RT IMPRESSION: 1. Status post MRI guided vacuum-assisted core biopsy right breast with clip placement. 2. Final pathology results pending. An addendum report will be issued. Electronically signed by: Génesis Simms DO 11/03/2024 12:52 PM EDT
--- OUTSIDE RECORDS SUMMARY | 2024-11-03 07:27 | XMS_ITS | Patient Health Record ---
Author Organization [facility] Address [address] [place] [address] Care Team Providers Care Tool Hardener Name Role Phone Robert Franco Primary Care [...] Insured Coverage Start Date Coverage End Date [facility] [address] [address] [place] [address] [id number] Kathy Cowan Self - patient is the insured Medical (General) History Medical History History ICD Code DM hypertension irregiular heart beat Surgical History Surgery Date(Month/Year) c section Hospitalization History Reason Date(Month/Year) as above
[2024-11-03] MEDS: Lidocaine HCl 1 % MPF 30 ML VIAL SUBCUT (10:03)
[2024-11-03] MEDS: Sodium Bicarbonate 8.4% 50 MEQ in Dextrose 5 % 950 ML IV (10:05)
[2024-11-03] MEDS: Lidocaine HCl 1%/Epi 1:100,000 10 ML VIAL SUBCUT (10:07)
[2024-11-03] MEDS: gadobutroL 10 ML VIAL IVPUSH (10:08)
== END 2024-11-03 07:26 | disposition home or self-care (01) ==
LOC: HO.US 07:25
PROVIDERS: PCP Internal Medicine; Visit Provider Surgery
DX: R22.2 Localized swelling, mass and lump, trunk (principal); N60.81 Other benign mammary dysplasias of right breast; R92.0 Mammographic microcalcification found on diagnostic imaging of breast; C50.912 Malignant neoplasm of unspecified site of left female breast
CPT/HCPCS: 19085; 76604; 77061; 77065; 88305; 88341; 88342; A4648; A9585; J2003; J2004

== ENCOUNTER → 2024-11-03 07:28 | Outpatient (BNV) | payer MEDICARE, SELFPAY | PROVIDERS: PCP Internal Medicine; Visit Provider Internal Medicine | DX: R92.1 Mammographic calcification found on diagnostic imaging of breast (principal); R22.2 Localized swelling, mass and lump, trunk | CPT/HCPCS: 19085; 76604; 77065 ==

== ENCOUNTER 2024-11-04 11:13 | Outpatient (REF) | payer MEDICARE, SELFPAY ==
--- NOTE | ~2024-11-04 | US_ITS ---
EXAMINATION: Ultrasound GUIDED RFID LOCALIZATION BREAST, Left CLINICAL INFORMATION: Left breast invasive lobular carcinoma are RFID tag placement requested for surgery. COMPARISON: Priors on PACS TECHNIQUE NEEDLE LOC: Proper informed consent is obtained from the patient after discussion of the procedure, potential risks and complications, and alternatives including declining the procedure today. Patient was given an opportunity for questions. The patient appeared to understand. The patient consented to the procedure and signed the consent form. GUIDANCE: Ultrasound. APPROACH: Lateral Medial. TARGET: Mass and clip 11:00. 5 cm from the nipple butterfly clip ANESTHESIA: carbonated lidocaine. LOCALIZATION SYSTEM: EvolveMol LOCallizer Wire-Free Guidance System with 12g needle applicator. RADIOFREQUENCY TAG: ID # [id number] RF Tag ID confirmed with LOCalizer Guidance System prior to placement. The skin is prepped and local anesthesia administered. The needle is positioned and RFID tag deployed. Final images demonstrate the LOCalizer RF tag to reside adjacent to the clip within the mass. The patient tolerated the procedure well and had no immediate complications. Dressing placed and home instructions reviewed. US/US Breast RF Tag Device Left IMPRESSION: -Status post left breast RFID localization. Electronically signed by: Génesis Simms DO 11/04/2024 01:44 PM EDT
--- NOTE | ~2024-11-04 | US_ITS ---
PROCEDURE: ULTRASOUND-GUIDED RIGHT Chest wall BIOPSY CLINICAL INFORMATION: Enhancing chest wall mass right lateral area question lipoma COMPARISON: Priors on PACS. TECHNIQUE: The details of the procedure, as well as the risks, benefits, and alternatives to the procedure were explained to the patient in detail and all of her questions were answered, after which, written informed consent was obtained. PROCEDURE: Prior to the procedure, sonography revealed a hyperechoic oval mass at 10:00 20 cm from the nipple.. A time-out was performed, the lesion intended for biopsy was targeted and the skin of the right chest was then prepped and draped in the usual sterile fashion. Using sonographic guidance, sterile technique, and 1% lidocaine without epinephrine for local anesthesia, a total of 4 cores were obtained through the targeted area with a 14-gauge biopsy device. At the completion of tissue sampling, a single butterfly metallic clip was deposited at the biopsy site. An appropriate sample was obtained. No postprocedure mammogram performed. The patient tolerated the procedure well and, after assuring adequate hemostasis, was discharged in good condition after reviewing postbiopsy breast care instructions. Final pathology results are pending. US/US breast ndl core biopsy RT IMPRESSION: 1. Uncomplicated sonographically-guided core biopsy of the right chest superficial subdermal. 2. Final pathology results are pending. A separate report with final recommendations will be issued once these results are made available. Electronically signed by: Génesis Simms DO 11/04/2024 01:45 PM EDT
--- NOTE | ~2024-11-04 | MM_ITS ---
EXAMINATION: Ultrasound GUIDED RFID LOCALIZATION BREAST, Left CLINICAL INFORMATION: Left breast invasive lobular carcinoma are RFID tag placement requested for surgery. COMPARISON: Priors on PACS TECHNIQUE NEEDLE LOC: Proper informed consent is obtained from the patient after discussion of the procedure, potential risks and complications, and alternatives including declining the procedure today. Patient was given an opportunity for questions. The patient appeared to understand. The patient consented to the procedure and signed the consent form. GUIDANCE: Ultrasound. APPROACH: Lateral Medial. TARGET: Mass and clip 11:00. 5 cm from the nipple butterfly clip ANESTHESIA: carbonated lidocaine. LOCALIZATION SYSTEM: JIT Solaire LOCallizer Wire-Free Guidance System with 12g needle applicator. RADIOFREQUENCY TAG: ID # [id number] RF Tag ID confirmed with LOCalizer Guidance System prior to placement. The skin is prepped and local anesthesia administered. The needle is positioned and RFID tag deployed. Final images demonstrate the LOCalizer RF tag to reside adjacent to the clip within the mass. The patient tolerated the procedure well and had no immediate complications. Dressing placed and home instructions reviewed. MM/MM diagnostic mammo unilat LT IMPRESSION: -Status post left breast RFID localization. Electronically signed by: Génesis Simms DO 11/04/2024 01:44 PM EDT
--- OUTSIDE RECORDS SUMMARY | 2024-11-04 12:28 | XMS_ITS | Patient Health Record ---
Author Organization [facility] Address [address] [place] [address] Care Team Providers Care Bible Worker Name Role Phone Robert Franco Primary Care Provider [phone] Robert Franco Unavailable Unavailable Allergies No [...] Insured Coverage Start Date Coverage End Date [facility] [address] [address] [place] [address] [id number] Kathy Cowan Self - patient is the insured Medical (General) History Medical History History ICD Code DM hypertension irregiular heart beat Surgical History Surgery Date(Month/Year) c section Hospitalization History Reason Date(Month/Year) as above
[2024-11-04] MEDS: Sodium Bicarbonate 8.4% 50 MEQ/50 ML VIAL SUBCUT ×2 (13:02→13:04)
[2024-11-04] MEDS: Lidocaine HCl 1 % 20 ML VIAL 9 ML SUBCUT ×2 (13:03→13:05)
== END 2024-11-04 11:14 | disposition home or self-care (01) ==
LOC: HO.MAMMO 11:13
PROVIDERS: PCP Internal Medicine; Visit Provider Surgery
DX: C50.212 Malignant neoplasm of upper-inner quadrant of left female breast (principal); R22.2 Localized swelling, mass and lump, trunk
CPT/HCPCS: 19083; 19285; 77065; 88305; A4648; C1819; J2003

== ENCOUNTER → 2024-11-04 12:00 | Outpatient (BNV) | payer MEDICARE, SELFPAY | PROVIDERS: PCP Internal Medicine; Visit Provider Internal Medicine | DX: D17.1 Benign lipomatous neoplasm of skin and subcutaneous tissue of trunk (principal); C50.912 Malignant neoplasm of unspecified site of left female breast; Z98.82 Breast implant status | CPT/HCPCS: 19083; 19285; 77065 ==

== ENCOUNTER 2024-11-08 09:48 | Day surgery (SDC) | payer MEDICARE, SELFPAY ==
--- OUTSIDE RECORDS SUMMARY | 2024-10-29 12:20 | XMS_ITS | Patient Health Record ---
Author Organization [facility] Address [address] [place] [address] Care Team Providers Care Rate Clerk Passenger Name Role Phone Robert Franco Primary Care [...] Insured Coverage Start Date Coverage End Date [facility] [address] [address] [place] [address] [id number] Kathy Cowan Self - patient is the insured Medical (General) History Medical History History ICD Code DM hypertension irregiular heart beat Surgical History Surgery Date(Month/Year) c section Hospitalization History Reason Date(Month/Year) as above
[2024-11-04 10:55] VITALS: BMI 40.4
--- NOTE | 2024-11-04 14:33 | P.CONAN_ITS ---
Documented by User: Anjali Sheffield NP 11/04/24 14:35 HPI - Anesthesia Eval Consult details Narrative: 68yo F for Left Breast Lumpectomy w/LOCalizer, [place] Node Biopsy PMFSH Active Problems Active Problems: All Active Problems Invasive lobular carcinoma of breast in female (Acute) Lumbar radiculopathy (Acute) History of lump of left breast (Acute) Follow-up exam, 3-6 months since previous exam (Acute) Breast cancer screening (Acute ~09/15/23) History of lump of right breast (Acute) Bilateral hip pain (Acute) Back pain (Acute) Leg pain, left (Acute) Arthralgia of multiple joints (Acute) Thyroid nodule (Acute) Mass of right chest wall (Acute) Subclinical hyperthyroidism (Acute) Invasive ductal carcinoma of breast (Acute) Morbid obesity (Acute) Left breast mass (Acute) Hyperparathyroidism (Acute) Multiple thyroid nodules (Acute) HTN (hypertension) (Acute) Type 2 diabetes mellitus (Acute) Past Medical History Medical History Palpitations Mass of right chest wall Subclinical hyperthyroidism Invasive ductal carcinoma of breast Morbid obesity Left breast mass Hyperparathyroidism Multiple thyroid nodules Positive colorectal cancer screening using Cologuard test (~04/30/24) Right sided sciatica Polyarthralgia HTN (hypertension) Type 2 diabetes mellitus Family History Family History Mother Diabetes HTN (hypertension) Father Cardiomegaly Substance use disorder Maternal Grandmother Uterine cancer Maternal Aunt Colon cancer Surgical History Surgical History History of biopsy History of colonoscopy (~06/23/20) History of tooth extraction History of toe surgery History of delivery Social History Social History Household Members: Family and Children Housing: House Are you a primary healthcare economics consultant to a significant other at home: No Do you presently have visiting nurse or other home services: No Alcohol intake: never Patient Tobacco Use Status: Former Tobacco user Tobacco use type: Cigarette Years Smoked: 15 e-Cigarette/Vaping Use: Never Used Second Hand Smoke Exposure: Yes Use of substances other than those prescribed or required for medical reasons: No Have you been hit, kicked, punched, or otherwise hurt by someone within the past year? If so, by whom?: No Spiritual Healthcare Practices: no Judaism Healthcare Practices: yes-Jehovah Witness Cultural Healthcare Practices: no Are you DNR?: Yes Advance Directives: Yes Advance Directives Information Provided: Yes Advance Directives on File: Yes Advance Directives Date on File: 08/18/24 FDLMP: n/a : No Poor oral hygiene: No service: No Current occupational status: retired Cognitive needs: Yes (cane) Hearing needs: No Vision needs: Yes (glasses) Meds Allergies Allergy/AdvReac Type Severity Reaction Status Date / Time hydrochlorothiazide Allergy Intermediate did not Verified 11/04/24 10:53 resolve HTN aspirin AdvReac Intermediate Gastrointestinal Verified 11/04/24 10:41 Upset Home Medications ?Medication ?Instructions ?Recorded ?Confirmed ?Last Taken ?Type atenolol 100 mg tablet 100 mg PO DAILY 04/04/23 11/04/24 11/08/24 History insulin lispro 100 unit/mL 18 unit subcut TID 03/17/24 11/04/24 Unknown History subcutaneous pen insulin glargine 100 unit/mL (3 70 unit subcut BEDTIME 11/04/24 11/04/24 Unknown History mL) subcutaneous pen (Lantus Solostar U-100 Insulin) Exam Height,Weight and Vital Signs: Height 5 ft 2 in Weight 100.244 kg Assessment and Plan Assessment Anesthesia Assessment: Chart Reviewed Documented by User: Errol Steen MD 11/08/24 13:22 [facility] Past Medical History Medical History Palpitations Mass of right chest wall Subclinical hyperthyroidism Invasive ductal carcinoma of breast Morbid obesity Left breast mass Hyperparathyroidism Multiple thyroid nodules Positive colorectal cancer screening using Cologuard test (~04/30/24) Right sided sciatica Polyarthralgia HTN (hypertension) Type 2 diabetes mellitus Functional capacity: independent ambulation Patient : No Family History Family History Mother Diabetes HTN (hypertension) Father Cardiomegaly Substance use disorder Maternal Grandmother Uterine cancer Maternal Aunt Colon cancer Family history of problems with anesthesia: No Surgical History Surgical History History of biopsy History of colonoscopy (~06/23/20) History of tooth extraction History of toe surgery History of delivery History of Problems with Anesthesia: No Social History Social History Household Members: Family and Children Housing: House Are you a primary healthcare economics consultant to a significant other at home: No Do you presently have visiting nurse or other home services: No Alcohol intake: never Patient Tobacco Use Status: Former Tobacco user Tobacco use type: Cigarette Years Smoked: 15 e-Cigarette/Vaping Use: Never Used Second Hand Smoke Exposure: Yes Use of substances other than those prescribed or required for medical reasons: No Have you been hit, kicked, punched, or otherwise hurt by someone within the past year? If so, by whom?: No Spiritual Healthcare Practices: no Judaism Healthcare Practices: yes-Jehovah Witness Cultural Healthcare Practices: no Are you DNR?: Yes Advance Directives: Yes Advance Directives Information Provided: Yes Advance Directives on File: Yes Advance Directives Date on File: 08/18/24 FDLMP: n/a : No Poor oral hygiene: No service: No Current occupational status: retired Cognitive needs: Yes (cane) Hearing needs: No Vision needs: Yes (glasses) Meds Allergies Allergy/AdvReac Type Severity Reaction Status Date / Time hydrochlorothiazide Allergy Intermediate did not Verified 11/04/24 10:53 resolve HTN aspirin AdvReac Intermediate Gastrointestinal Verified 11/04/24 10:41 Upset Home Medications ?Medication ?Instructions ?Recorded ?Confirmed ?Last Taken ?Type atenolol 100 mg tablet 100 mg PO DAILY 04/04/23 11/04/24 11/08/24 History insulin lispro 100 unit/mL 18 unit subcut TID 03/17/24 11/04/24 Unknown History subcutaneous pen insulin glargine 100 unit/mL (3 70 unit subcut BEDTIME 11/04/24 11/04/24 Unknown History mL) subcutaneous pen (Lantus Solostar U-100 Insulin) Exam Airway Mallampati Class: III TM Dist: >3cm Neck ROM: Full Loose/Missing/Broken Teeth: No Heart: rrr Lungs: cta Assessment and Plan Final Anesthetic Review Family History of Problems with Anesthesia: No History of Problems with Anesthesia: No ASA Class: III Final Preanesthetic Review: No Changes in Pt Med Stat, Meds/Allgs Chart Reviewed, Consent Obtained/Reviewed and Anes Risks/Benef Reviewed Patient Risk: Intermediate Procedure Risk: Low Anesthetic Plan Anesthetic Plan: GA and Agree w/ Assess. and Plan Disposition: Standard PACU and Extended PACU
[2024-11-08] VITALS (7 sets, daily range): BP systolic 158–176; BP diastolic 35–93; PULSE 69–82; RESP 16–20; TEMP 36.1–36.6; O2SAT 93–97; BMI 40.7
--- NOTE | ~2024-11-08 | NM_ITS ---
EXAMINATION: NM LYMPHOSCINTIGRAPHY CLINICAL INFORMATION: Left breast lobular carcinoma. For excision. COMPARISON: 10/06/2024. TECHNIQUE: Right breast lymphoscintigraphy injection was performed . Approximately 0.5 mCi of technetium 99m lymphoseek and 0.8 mL of saline was divided into 4 aliquots of approximately 0.125 mCi, and injected in 4 quadrants around the left breast areola intradermally at 12:00, 3:00, 6:00, and 9:00. Immediate images and delayed images were obtained in AP, oblique and lateral views 25 minutes later. FINDINGS: There is isotope activity in four-quadrant around left breast areola following injection. There are at least 4 areas of isotope activity along the left mid axilla suggestive of multiple lymph nodes. NM/NM sentinel node w imaging IMPRESSION: At least 4 small lymph nodes seen in left mid axilla on left breast lymphoscintigraphy. Thank you for the courtesy of your referral. Electronically signed by: Elmer Rushing MD 11/08/2024 12:42 PM EDT
--- NOTE | ~2024-11-08 | MM_ITS ---
Single left breast specimen radiograph demonstrates the marker clip in the tag within the specimen. Electronically signed by: Génesis Simms DO 11/08/2024 03:46 PM EDT
[2024-11-08] MEDS: Lidocaine 4 % Cream KIT 1 APPL TOPICAL (10:37)
--- NOTE | 2024-11-08 11:10 | PC.NURSE ---
OFF UNIT TO NUCLEAR MEDICINE
--- NOTE | 2024-11-08 12:04 | PC.NURSE ---
REMAINS OFF UNIT
--- NOTE | 2024-11-08 12:30 | MHC.SHP ---
Pre-Procedural Eval Section A - 24 Hr Update-Section A only Date of Service: 11/08/24 Section B - Complete if H&P > 30 days Chief Complaint: Malignant neoplasm of unspecified site Details of Present Illness: She is here for a left breast lobular carcinoma, for lumpectomy, sentinel node biopsy Relevant Family History (Specify if Yes): No Relevant Social History: None Present Medications: see Short Stay Collaborative assessment Medical History: Significant History (Hyperthyroidism, arthralgia, lumbar radiculopathy) Allergies: Allergies Allergy/AdvReac Type Severity Reaction Status Date / Time hydrochlorothiazide Allergy Intermediate did not Verified 11/04/24 10:53 resolve HTN aspirin AdvReac Intermediate Gastrointestinal Verified 11/04/24 10:41 Upset Review of Systems Sugical H&P ROS: Negative: Constitution, Cardiovascular, Respiratory and Gastrointestinal Exam Surgical H&P Exam: Normal: Heart, Normal: Lungs and Normal: Abdomen Plan Diagnosis/Plan: Unchanged I have reviewed the history and physical and performed a pertinent physical examination on my patient. No changes have occurred unless specified. Time Spent With Patient Time: Total time managing care of this patient today ____ minutes.
[2024-11-08] MEDS: Lactated Ringers 1,000 ML 100 ML IVCONT (12:38)
[2024-11-08 13:31] LABS: Glucose, Whole Blood 137 mg/dL (60-115)
[2024-11-08] MEDS: ceFAZolin Sodium/Dextrose,Iso 2 GM/50 ML PIGGYBACK IV (13:45)
--- NOTE | 2024-11-08 15:31 | P.OP_ITS ---
Operative Note Operative Note Date of Service: 11/08/24 Narrative: Preop diagnosis: Left breast invasive lobular carcinoma Postop diagnosis: Procedure: Left breast lumpectomy with Hologic localizer, sentinel node biopsy Surgeon: Antonio Nguyen MD occupational therapy assistant: MELLISSA Barker The patient is a 68-year-old female with note of a new recently diagnosed invasive lobular carcinoma of the left breast. Understood the technique of lumpectomy, Hologic localizer and sentinel biopsy. She was aware of the risks, benefits, and alternatives. She had nuclear scintigraphy earlier for her axillary lymph nodes done by the radiologist. I have reviewed the films and there were 2 lymph nodes that could be seen in the axilla. She was brought to the operating room and placed supine under general anesthesia via laryngeal mask airway. The left breast was prepped and draped in the usual sterile fashion. A surgical time-out was done. The patient received cefazolin 2 g IV preoperatively. I marked the planned line of incision based on the most superficial area on the breast based on the Hologic localizing probe. This was on the upper part of the nipple-areolar complex. I infiltrated this with lidocaine 1%. I made a curvilinear incision with a blade 15. This was carried down with electrocautery through the full-thickness of the skin and subcutaneous fat. I then periodically used the localizer to direct my dissection towards the RF ID tag. I used the curved Luciano scissors to circumferentially and sharply dissect around this area of the breast tissue. Again, we had to use the localizer periodically to identify this area. Eventually was able to achieve circumfere ntial dissection. I was able to deliver the specimen. The RF ID tag was within the specimen. We confirmed presence of the RF ID tag and the biopsy clip with immediate rearrange in the room. The lateral and the superior margins were marked with sutures and this was sent as a specimen. I then proceeded to inspect the lumpectomy site for any bleeding. I cauterized oozing areas. We made sure that there was good hemostasis and then we applied a light packing with gauze. We then proceeded to do the sentinel node biopsy we. We changed gloves and instruments at this point. I used the gamma probe to locate for the highest counts in the axilla. I infiltrated this with lidocaine 1% and I made the incision with a blade 15. I carried down the incision with the electrocautery through the full-thickness of the skin and subcutaneous fat. I then dissected through the fascia and entered the axillary fat pad. I used the gamma probe to localize and identify lymph nodes with the highest counts I was able to identify 3 lymph nodes. [place] node 1 had a count of 918. [place] node 2 had a count of 1100 [place] node 3 had a count of 1500. All these lymph nodes were retrieved using sharp dissection with Metzenbaum scissors and clamping the pedicle with a right angle clamp, excising the lymph node and tying the pedicle with Polysorb 3-0 ties. There was no elevated counts with scanning of the axilla after these 3 sentinel nodes were removed. I observed for hemostasis. Once hemostasis was confirmed, I irrigated and reapposed the deeper tissues with Polysorb 3-0 sutures. Skin closure was achieved with Polysorb 4-0 subcuticular running stitch I then went down to review the lumpectomy specimen with the pathologist. She recommending removing more of the medial margins as well as the inferior margins I therefore went back to the operating room. We excised additional medial margins using Luciano scissors as well as we irrigated. We observed for hemostasis. Once hemostasis was confirmed, we reapposed the deep breast tissue with Polysorb 3-0 simple interrupted sutures. Skin closure was achieved with Polysorb 4-0 subcuticular running stitch All incisions were infiltrated with Marcaine 0.5% for postop analgesia. Dressings were applied. The procedure was completed The patient tolerated the procedure well. There were no immediate complications. Initial and final counts of sponges and instruments were correct. Estimated blood loss about 50 cc The patient was is extubated without difficulty and transferred to the recovery room with stable vital signs.
[2024-11-08] MEDS: droPERidol 5 MG/2 ML VIAL 0.625 MG IVPUSH (16:20)
--- NOTE | 2024-11-10 14:07 | P.OP_ITS ---
Operative Note Operative Note Date of Service: 11/08/24 Breast [place] Node Biopsy Substrate(s) used for sentinel node biopsy in the non-neoadjuvant setting: Radiotracer All colored nodes or non-colored nodes present at the end of a dye filled lymphatic channel were removed, if dye was used as the substrate for localization: N/A All significantly radioactive nodes were removed, if radionuclide was used as the substrate for localization: Yes All palpably suspicious nodes were removed, if present: N/A If clips were placed in pathology-involved nodes, those nodes were identified and removed: N/A Procedure performed with curative intent?: Yes General Surg. - Synoptic Notes Breast [place] Node Biopsy Substrate(s) used for sentinel node biopsy in the non-neoadjuvant setting: Radiotracer All colored nodes or non-colored nodes present at the end of a dye filled ly mphatic channel were removed, if dye was used as the substrate for localization: N/A All significantly radioactive nodes were removed, if radionuclide was used as the substrate for localization: Yes All palpably suspicious nodes were removed, if present: N/A If clips were placed in pathology-involved nodes, those nodes were identified and removed: N/A Procedure performed with curative intent?: Yes
== END 2024-11-08 16:45 | disposition home or self-care (01) ==
PROVIDERS: PCP Internal Medicine; Visit Provider Surgery
PROC: (CPT 19301; principal; 2024-11-08 12:30)
PROC: (CPT 19301; 2024-11-08 12:30)
DX: C50.212 Malignant neoplasm of upper-inner quadrant of left female breast (principal); C77.3 Secondary and unspecified malignant neoplasm of axilla and upper limb lymph nodes; Z17.0 Estrogen receptor positive status [ER+]; Z17.21 Progesterone receptor positive status; Z17.32 Human epidermal growth factor receptor 2 negative status; E05.20 Thyrotoxicosis with toxic multinodular goiter without thyrotoxic crisis or storm; E04.2 Nontoxic multinodular goiter; E21.3 Hyperparathyroidism, unspecified; E66.01 Morbid (severe) obesity due to excess calories; Z68.41 Body mass index [BMI] 40.0-44.9, adult; I10 Essential (primary) hypertension; I49.9 Cardiac arrhythmia, unspecified; E11.9 Type 2 diabetes mellitus without complications; M54.31 Sciatica, right side; Z79.4 Long term (current) use of insulin; Z79.899 Other long term (current) drug therapy; Z88.8 Allergy status to other drugs, medicaments and biological substances; Z87.891 Personal history of nicotine dependence
CPT/HCPCS: 19301; 38525; 38900; 78195; 82947; 88307; 88329; 88342; A9520; J0131; J0690; J1171; J1790; J2003; J2405; J2704; J2795; J3010

== ENCOUNTER → 2024-11-08 09:48 | Outpatient (BNV) | payer MEDICARE, SELFPAY | PROVIDERS: PCP Internal Medicine; Visit Provider Surgery | DX: C50.011 Malignant neoplasm of nipple and areola, right female breast (principal) | CPT/HCPCS: 19301; 38525; 38900 ==

== ENCOUNTER → 2024-11-08 10:47 | Outpatient (BNV) | payer MEDICARE, SELFPAY | PROVIDERS: PCP Internal Medicine; Visit Provider Radiology Diagnostic Radiology | DX: C50.811 Malignant neoplasm of overlapping sites of right female breast (principal) | CPT/HCPCS: 78195 ==

== ENCOUNTER 2024-11-22 10:05 | Outpatient (AMB) | payer MEDICARE, SELFPAY ==
[2024-11-22 10:32] VITALS: BP 195/88; PULSE 82
--- NOTE | 2024-11-22 10:32 | MHC.OFFVIS ---
Vital Signs 11/22/24 10:32 Weight 222 lb BP 195/88 H Blood Pressure Location Lt radial Position Sitting Pulse 82 Intake Visit Reasons: S/P Lt. breast lumpectomy w/localizer & SN bx Intake Note: Patient here s/p Lt br lumpectomy w/localizer & SN bx. Reports incision healing well. Patient c/o: itchy along bottom part of incision, tender to touch. Denies oozing, redness. Never took rx pain meds. Breast, left, lumpectomy: 11-08-2024. Customer Operations Manager Required: No Accompanied by: Self / Same As Patient Allergies hydrochlorothiazide Allergy (Intermediate, Verified 11/22/24 10:34) did not resolve HTN aspirin Adverse Reaction (Intermediate, Verified 11/22/24 10:34) Gastrointestinal Upset HPI HPI S/P Lt. breast lumpectomy w/localizer & SN bx: Details: She had undergone lumpectomy with the left breast along with a sentinel node biopsy last 11/08/2024. She tolerated procedure well. She currently says she is doing well and denies significant complaints. She has good pain control. [facility] Medical History Palpitations Mass of right chest wall Subclinical hyperthyroidism Invasive ductal carcinoma of breast Morbid obesity Left breast mass Hyperparathyroidism Multiple thyroid nodules Positive colorectal cancer screening using Cologuard test (~04/30/24) Right sided sciatica Polyarthralgia HTN (hypertension) Type 2 diabetes mellitus Surgical History History of biopsy History of colonoscopy (~06/23/20) History of tooth extraction History of toe surgery History of delivery Family History Mother Diabetes HTN (hypertension) Father Cardiomegaly Substance use disorder Maternal Grandmother Uterine cancer Maternal Aunt Colon cancer Social History Household Members: Family and Children Housing: House Are you a primary customer care representative to a significant other at home: No Do you presently have visiting nurse or other home services: No Alcohol intake: never Patient Tobacco Use Status: Former Tobacco user Tobacco use type: Cigarette Years Smoked: 15 e-Cigarette/Vaping Use: Never Used Second Hand Smoke Exposure: Yes Advance Directives Date on File: 08/18/24 service: No Current occupational status: retired Cognitive needs: Yes (cane) Hearing needs: No Vision needs: Yes (glasses) Review of Systems Const Denies chills and Denies fever(s) Card Denies chest pain GI Denies abdominal pain Musc Reports back pain Physical Exam Vital Signs: Last Vital Signs Pulse 82 11/22/24 10:32 BP 195/88 H 11/22/24 10:32 Const Other: Using a walker General: comfortable and no acute distress Chest Other: Lumpectomy site on the left breast along with sentinel biopsy site looks well healed, mild induration on the lumpectomy site likely representing a hematoma, no cellulitis Resp Effort & Inspection: normal respiratory effort Assessment & Plan Assessment & Plan (1) Invasive lobular carcinoma of breast in female: Code(s): C50.919 - Malignant neoplasm of unspecified site of unspecified female breast Category: Medical Plan: Status post lumpectomy with sentinel biopsy. Her final path report shows the invasive lobular carcinoma with concomitant DCIS and extensive LCIS. Surgeons are negative although close with the DCIS. There is 1 lymph node out of 3 sentinel nodes that is positive for metastatic carcinoma. Current stage is therefore a T2 N1 invasive lobular carcinoma. She is to have a follow up with Dr. Ortega for adjuvant treatment. She is to have whole breast radiation as well to complete treatment. Her case has been discussed in tumor board and it was the opinion of the radiation oncologist that radiation therapy may be enough for the close margins with the DCIS. I have directed her to do warm compresses to the area lumpectomy I will see her again in the office in about a month. Coding Level of Care Code Global (43114) Diagnoses Invasive lobular carcinoma of breast in female C50.919
--- OUTSIDE RECORDS SUMMARY | 2024-11-22 11:00 | XMS_ITS | Patient Health Record ---
Author Organization [facility] oup Address [address] [place] [address] Care Team Providers Care Emergency Services Professional Name Role Phone Robert Franco Primary Care [...] Insured Coverage Start Date Coverage End Date [facility] [address] [address] [place] [address] [id number] Kathy Cowan Self - patient is the insured Medical (General) History Medical History History ICD Code DM hypertension irregiular heart beat Surgical History Surgery Date(Month/Year) c section Hospitalization History Reason Date(Month/Year) as above
== END 2024-11-22 10:46 | disposition home or self-care (01) ==
LOC: HO.HGS 10:09
PROVIDERS: PCP Internal Medicine; Visit Provider Surgery
DX: C50.919 Malignant neoplasm of unspecified site of unspecified female breast (principal)
CPT/HCPCS: 99024

== ENCOUNTER → 2024-11-22 10:05 | Outpatient (BNVA) | payer MEDICARE, SELFPAY | PROVIDERS: PCP Internal Medicine; Visit Provider Surgery | DX: C50.912 Malignant neoplasm of unspecified site of left female breast (principal); C77.9 Secondary and unspecified malignant neoplasm of lymph node, unspecified; Z98.890 Other specified postprocedural states | CPT/HCPCS: 99212 ==

== ENCOUNTER 2024-11-25 10:54 | Outpatient (AMB) | payer MEDICARE, SELFPAY ==
--- NOTE | 2024-11-25 10:55 | MHC.OFFVIS ---
Vital Signs 11/25/24 10:56 Weight 222 lb BP 138/86 Blood Pressure Location Lt brachial Position Sitting Pulse 84 Pulse Source Pulse Oximeter Pulse Oximetry (%) 96 Oxygen Delivery Method Room Air Intake Visit Reasons: NMG Intake Note: Patient present today for NMG office visit. Box Sealing Inspector Required: No Accompanied by: Self / Same As Patient Allergies hydrochlorothiazide Allergy (Intermediate, Verified 11/25/24 11:01) did not resolve HTN aspirin Adverse Reaction (Intermediate, Verified 11/25/24 11:01) Gastrointestinal Upset Medication List - Last Reconciled 11/25/24 by Monik Brown MD atenolol 100 mg PO DAILY atorvastatin 10 mg PO BEDTIME flash glucose sensor (FreeStyle Ela 2 Sensor kit) check bs 4 times a day ibuprofen 600 mg PO Q6H PRN insulin glargine (Lantus Solostar U-100 Insulin) 70 units (0.7 mL) subcut BEDTIME insulin lispro 18 units subcut TID pen needle, diabetic (BD Ultra-Fine Micro Pen Needle) As directed valsartan 80 mg PO DAILY HPI Comments Details: 68-year-old female coming in today for follow up of Nontoxic multinodular goiter. HPI Diagnosed in 2022 in [place]. Was told she needed a repeat US in 1 year, no FNA done. 07/28/2024: Ultrasound of the thyroid, I reviewed the images myself which showed a right superior pole nodule measuring 2.8 cm which is solid, hypoechoic, even though the report says extrathyroidal extension, this is not very clear on the imaging, this is somewhere between a TR 4 versus a TR 5 nodule. Regardless meets criteria for FNA.Another right mid lobe 1 cm TR 4 nodule with peripheral calcifications. A right inferior pole 1.6 cm solid hypoechoic TR 4 category nodule that does meet criteria for FNA. She also has a an isthmus 1.4 cm solid hypoechoic nodule with a extrathyroidal extension, TR 5 category nodule. Also meets criteria for FNA. And lastly a left inferior pole 1.5 cm solid isoechoic TR 3 category nodule. Patient currently denies heat or cold intolerance, diarrhea or constipation, hair loss, , anxiety, weight changes, mood changes, low energy, changes in appearance of eyes or vision changes, tremors, increased diaphoresis or dry skin. ? Has an irregular heart beat. Patient denies any difficulty swallowing, pain on swallowing or voice changes or difficulty breathing. Patient denies any history of childhood neck radiation. Denies having ever used lithium, amiodarone or biotin supplements. Patient denies any family history of thyroid cancer . 2 neices have thyroid disease, unclear which one but take medication so likley hypothyroidism. No recent TFTs. 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 09/14/2024: TSH 0.05, free T4 0.99, today she denies any tremors, heat intolerance, does have chronic palpitations, she is complaining of a few episodes of loose stools. No weight loss. No mood changes. 09/22/2024: Underwent FNA of the right superior 2.8 cm nodule: AUS with nuclear atypia [place] category 3, Afirma suspicious ( 50% risk of malignancy); as well as the isthmus 1.4 cm nodule which came back as AUS with nuclear atypia [place] category 3, Afirma benign (4% risk of malignancy) Interval history September 2024: Underwent left breast mass biopsy was found to have invasive lobular carcinoma of the left breast status post lumpectomy in October 2024. Following with oncology if plan for adjuvant therapy in the future. Repeat labs 10/14/2024 again showed low TSH of 0.05 with normal free T4 of 0.98, total T3 of 129 (76-181), undetectable TSI, TPO and TSH receptor antibodies. We had referred her to Dr. Shayne Shore at [facility], however insurance does not cover out of network providers and they provided her Dr. Matti velasquez name in [facility] was covered by her insurance for thyroid surgery. Has thyroid uptake and scan scheduled for 12/16. Physical exam General: sitting comfortably in no acute distress HEENT: normocephalic/atraumatic Neck: supple, isthmus 2 cm palpable nodule Cardiac: normal heart sounds Pulm: normal breath sounds B/L, no added breath sounds Abd: not distended, no tenderness Laboratory Tests 06/11/23 08:19 TSH 0.51 Laboratory Tests 09/14/24 08:58 TSH 0.05 L Free T4 0.99 Laboratory Tests 10/14/24 09:38 TSH 0.05 L Free T4 0.98 Total T3 129 Thyroid Stim Immunoglob <89 Thyroid Peroxidase Ab <1 TSH Receptor Ab <1.00 US THYROID 07/28/24 CLINICAL INFORMATION: Nontoxic single thyroid nodule. COMPARISON: None available. TECHNIQUE: Linear transducer grayscale and color Doppler examination with attention to the region of the thyroid. FINDINGS: SIZE: Measurements of the thyroid lobes and nodules are given in sagittal, anteroposterior and transverse dimensions respectively. Right Thyroid Lobe: 6.3 x 3.1 x 2.6 cm, volume 26.7 mL. Parenchyma: The gland echotexture is heterogeneous. Thyroid vascularity is increased. Left Thyroid Lobe: 6.2 x 2.5 x 1.9 cm, volume 15.7 mL. Parenchyma: The gland echotexture is heterogeneous. Thyroid vascularity is increased. Isthmus: 1.0 cm in maximum AP dimension. Estimated total number of nodules greater than or equal to 1 cm: 5. Head Insulation Board Saw Operator nodules are described as follows: 1. Location: upper right thyroid lobe. Size: 2.2 x 2.0 x 2.8 cm, volume 6.56 mL. Nodule characteristics: Composition: Solid/almost completely solid (2). Echogenicity: Hypoechoic (2). Shape: Not taller than wide (0). Margins: 3 Echogenic Foci: No 0 ACR TI-RADS total points: 7 ACR TI-RADS category: 5 2. Location: Midportion, right thyroid lobe. Size: 1.0 x 1.1 x 1.1 cm, volume 0.64 mL. Nodule characteristics: Composition: Solid (2). Echogenicity: Undetermined (1) Shape: Not taller than wide (0). Margins: Smooth (0). Echogenic Foci: Peripheral calcifications (2). ACR TI-RADS total points: 5 ACR TI-RADS category: 4 3. Location: Lower pole, right thyroid lobe. Size: 1.6 x 1.1 x 1.1 cm, volume 1.01 mL. Nodule characteristics: Composition: Solid/almost completely solid (2). Echogenicity: Hypoechoic (2). Shape: Not taller than wide (0). Margins: Smooth (0). Echogenic Foci: None (0). ACR TI-RADS total points: 4 ACR TI-RADS category: 4 4. Location: Thyroid isthmus. Size: 1.4 x 1.0 x 0.9 cm, volume 0.94 mL. Nodule characteristics: Composition: Solid (2). Echogenicity: Hypoechoic (2). Shape: Not taller than wide (0). Margins: 3 Echogenic Foci: None (0). ACR TI-RADS total points: 7 ACR TI-RADS category: 5 5. Location: [Left Thyroid lobe mid portion. Size: 1.5 x 1.2 x 1.4 cm, volume 1.29 mL. Nodule characteristics: Composition: Solid (2). Echogenicity: Isoechoic (1). Shape: Not taller than wide (0). Margins: Smooth (0). Echogenic Foci: None (0). ACR TI-RADS total points: 3 ACR TI-RADS category: 3 NODES: No lymphadenopathy is seen in the tissue surrounding the thyroid gland. US/US thyroid IMPRESSION: ACR TI RADS category 4 and 5 ACR TI-RADS RECOMMENDATION REFERENCE: Ultrasound-guided fine-needle aspiration, followup ultrasound, no further follow up. * TR1 (0 point) and TR2 (2 points): No FNA or follow up. * TR3 (3 points): FNA if more than or equal to 2.5 cm in maximum dimension, followup ultrasound in 1, 3 and 5 years if 1.5 to 2.4 cm in maximum dimension. * TR4 (4-6 points): FNA if more than or equal to 1.5 cm in maximum dimension, followup ultrasound in 1, 2, 3 and 5 years if 1 to 1.4 cm in maximum dimension. * TR5 (more than or equal to 7 points): FNA if more than or equal to 1 cm in maximum dimension, followup ultrasound every year for 5 years if 0.5 to 0.9 cm in maximum dimension. * TR3, TR4 or TR5 nodules that are below the size threshold for followup receive no follow up. Electronically signed by: Christophe Chaudhry MD 08/03/2024 08:29 AM [facility] Medical History Palpitations Mass of right chest wall Subclinical hyperthyroidism Invasive ductal carcinoma of breast Morbid obesity Left breast mass Hyperparathyroidism Multiple thyroid nodules Positive colorectal cancer screening using Cologuard test (~04/30/24) Right sided sciatica Polyarthralgia HTN (hypertension) Type 2 diabetes mellitus Surgical History History of biopsy History of colonoscopy (~06/23/20) History of tooth extraction History of toe surgery History of delivery Family History Mother Diabetes HTN (hypertension) Father Cardiomegaly Substance use disorder Maternal Grandmother Uterine cancer Maternal Aunt Colon cancer Social History Household Members: Family and Children Housing: House Are you a primary assisted living care manager to a significant other at home: No Do you presently have visiting nurse or other home services: No Alcohol intake: never Patient Tobacco Use Status: Former Tobacco user Tobacco use type: Cigarette Years Smoked: 15 e-Cigarette/Vaping Use: Never Used Second Hand Smoke Exposure: Yes Advance Directives Date on File: 08/18/24 service: No Current occupational status: retired Cognitive needs: Yes (cane) Hearing needs: No Vision needs: Yes (glasses) Physical Exam Vital Signs: Last Vital Signs Pulse 84 11/25/24 10:56 BP 138/86 11/25/24 10:56 Pulse Ox 96 11/25/24 10:56 Oxygen Delivery Method Room Air 11/25/24 10:56 Assessment & Plan Assessment & Plan (1) Multiple thyroid nodules: Comment: edenilson kruger w/endorinology 10/13/24 Code(s): E04.2 - Nontoxic multinodular goiter Category: Medical Plan: 68-year-old female With no personal history of head or neck radiation, no family history of thyroid cancer here today for follow up of nontoxic multinodular goiter. diagnosed in 2022. In 2022 her ultrasound was done in [place]. She recently moved to [place]. 07/28/2024: Ultrasound of the thyroid, I reviewed the images myself which showed a right superior pole nodule measuring 2.8 cm which is solid, hypoechoic, even though the report says extrathyroidal extension, this is not very clear on the imaging, this is somewhere between a TR 4 versus a TR 5 nodule. Regardless meets criteria for FNA.Another right mid lobe 1 cm TR 4 nodule with peripheral calcifications. A right inferior pole 1.6 cm solid hypoechoic TR 4 category nodule that does meet criteria for FNA. She also has a an isthmus 1.4 cm solid hypoechoic nodule with a extrathyroidal extension, TR 5 category nodule. Also meets criteria for FNA. And lastly a left inferior pole 1.5 cm solid isoechoic TR 3 category nodule. 09/14/2024: TSH 0.05, free T4 0.99 09/22/2024: Underwent FNA of the right superior 2.8 cm nodule: AUS with nuclear atypia [place] category 3, Afirma suspicious ( 50% risk of malignancy); as well as the isthmus 1.4 cm nodule which came back as AUS with nuclear atypia [place] category 3, Afirma benign (4% risk of malignancy) she does not have any compressive symptoms. Repeat labs 10/14/2024 again showed low TSH of 0.05 with normal free T4 of 0.98, total T3 of 129 (76-181), undetectable TSI, TPO and TSH receptor antibodies. She could have underlying toxic nodular goiter. At this time I discussed with the patient that given the right superior nodule came back as suspicious on molecular genetics, she needs a diagnostic lobectomy with then requiring possibly completion thyroidectomy if thyroid cancers found on pathology versus consideration of total thyroidectomy given multiple bilateral nodules. I will refer her to thyroid surgery. Given she also has subclinical hyperthyroidism, we are obtaining a thyroid uptake and scan to see which of her nodules are cold or hot, if she has toxic multinodular goiter that could also further help with surgical planning. She might benefit from total thyroidectomy given that would take care of both her suspicious nodules as well as subclinical hyperthyroidism. Plan: -scheduled for thyroid uptake and scan 12/16 -sent referral to thyroid surgeon, Dr. Matti velasquez in [place] -follow up in 2 months (2) Subclinical hyperthyroidism: Code(s): E05.90 - Thyrotoxicosis, unspecified without thyrotoxic crisis or storm Category: Medical Plan: See above Plan See above Orders: Referrals Ear/Nose/Throat Referral E04.1 - Nontoxic single thyroid nodule, E05.90 - Thyrotoxicosis, unspecified without thyrotoxic crisis or storm Coding Level of Care Code Est Pt Level 3 (79792) Diagnoses Multiple thyroid nodules E04.2 Subclinical hyperthyroidism E05.90
[2024-11-25 10:56] VITALS: BP 138/86; PULSE 84; O2SAT 96
--- OUTSIDE RECORDS SUMMARY | 2024-11-25 12:52 | XMS_ITS | Patient Health Record ---
Author Organization [facility] Address [address] [place] [address] Care Team Providers Care Director Of Religious Activities Name Role Phone Robert Franco Primary Care [...] Insured Coverage Start Date Coverage End Date [facility] [address] [address] [place] [address] [id number] Kathy Cowan Self - patient is the insured Medical (General) History Medical History History ICD Code DM hypertension irregiular heart beat Surgical History Surgery Date(Month/Year) c section Hospitalization History Reason Date(Month/Year) as above
== END 2024-11-25 11:34 | disposition home or self-care (01) ==
LOC: HO.ENCR 10:55
PROVIDERS: PCP Internal Medicine; Visit Provider Student in an Organized Health Care Education/Training Program
DX: E04.2 Nontoxic multinodular goiter (principal); E05.90 Thyrotoxicosis, unspecified without thyrotoxic crisis or storm
CPT/HCPCS: 99213

== ENCOUNTER → 2024-11-25 10:54 | Outpatient (BNVA) | payer MEDICARE, SELFPAY | PROVIDERS: PCP Internal Medicine; Visit Provider Student in an Organized Health Care Education/Training Program | DX: E04.2 Nontoxic multinodular goiter (principal); E05.90 Thyrotoxicosis, unspecified without thyrotoxic crisis or storm | CPT/HCPCS: 99212 ==

== ENCOUNTER 2024-11-26 12:42 | Outpatient (REF) | payer MEDICARE, SELFPAY ==
--- NOTE | ~2024-11-26 | MM_ITS ---
EXAMINATION: DXA BONE DENSITY AXIAL HISTORY: Postmenopausal bone loss M85.88/C50.412 TECHNIQUE: LK FREEMAN Dual energy absorptiometry (DEXA) of the lumbar spine, total left hip, and femoral neck was performed. COMPARISON: There are no prior studies for comparison. FINDINGS: The bone mineral density of the lumbar spine is 1.199, corresponding to a T-score of 0.2, and a Z-score of 0.6. This is indicative of normal bone mineral density. The bone mineral density of the left total hip is 1.061, corresponding to a T-score of 0.4, and a Z-score of 1.0. This is indicative of normal bone mineral density. The bone mineral density of the left femoral neck is 0.992, corresponding to a T-score of -0.3, and a Z-score of 0.6. This is indicative of normal bone mineral density. FRACTURE RISK: The FRAX index suggests a risk of major osteoporotic fracture of 6.1%, and of hip fracture 0.4%. MM/XR DEXA axial skeleton IMPRESSION: Based on bone mineral density, and according to World Health Organization (WHO) criteria, the diagnosis is consistent with normal bone mineral density. All bone density values are in grams per centimeter squared (g/cm2). Statistically, 68% of repeat scans fall within 1 SD (+/- 0.010 g/cm2 for AP spine L1-L4) and 1 SD (+/- 0.012 g/cm2 for femur total) FRAX is a trademark of the [employer] [place] for Metabolic Bone Disease, a World Health Organization (WHO) Collaborating Center. Electronically signed by: Jesse Lindsay MD 11/26/2024 01:39 PM EDT
--- OUTSIDE RECORDS SUMMARY | 2024-11-26 12:44 | XMS_ITS | Patient Health Record ---
Author Organization [facility] Address [address] [place] [address] Care Team Providers Care Upset Welding Machine Operator Name Role Phone Robert Franco Primary Care Provider [phone] Robert Franco Unavailable Unavailable Allergies No [...] Insured Coverage Start Date Coverage End Date [facility] [address] [address] [place] [address] [id number] Kathy Cowan Self - patient is the insured Medical (General) History Medical History History ICD Code DM hypertension irregiular heart beat Surgical History Surgery Date(Month/Year) c section Hospitalization History Reason Date(Month/Year) as above
== END 2024-11-26 12:43 | disposition home or self-care (01) ==
LOC: HO.MAMMO 12:42
PROVIDERS: PCP Internal Medicine; Visit Provider Internal Medicine
DX: Z13.820 Encounter for screening for osteoporosis (principal); M85.89 Other specified disorders of bone density and structure, multiple sites
CPT/HCPCS: 77080

== ENCOUNTER → 2024-11-26 13:00 | Outpatient (BNV) | payer MEDICARE, SELFPAY | PROVIDERS: PCP Internal Medicine; Visit Provider Radiology Diagnostic Radiology | DX: E28.39 Other primary ovarian failure (principal) | CPT/HCPCS: 77080 ==

== ENCOUNTER → 2024-12-16 09:38 | Outpatient (REF) | payer MEDICARE, SELFPAY ==
--- NOTE | ~2024-12-16 | NM_ITS ---
EXAMINATION: AZ THYROID IMAGING AND UPTAKE CLINICAL INFORMATION: E05.90 - Thyrotoxicosis, unspecified without thyrotoxic crisis or storm COMPARISON: Correlation is made with a thyroid ultrasound dated 07/28/2024. TECHNIQUE: Following the oral administration of 205 microcuries of I-123 sodium iodide, thyroid uptake was performed and expressed as a percentage of the administrated dose. Gamma scintillation camera images of the thyroid in the anterior and right and left anterior oblique views were obtained using a pinhole collimator following the administration of 10 mCi Tc-99m pertechnetate. FINDINGS: Images of the thyroid demonstrate heterogeneous uptake in a lobulated appearance consistent with the multiple nodules noted on ultrasound. There are areas of increased uptake on the right. The uptake is 7.91% at 4 hours and 43.04% at 24 hours. NM/AZ thyroid w uptake IMPRESSION: 1. Heterogeneous uptake with a lobulated appearance consistent with the multiple nodules noted on thyroid ultrasound. 2. Elevated 24-hour uptake of 43.04%. Electronically signed by: Jesse Lindsay MD 12/17/2024 12:30 PM EDT
== END ==
LOC: HO.NUCMED 09:38
PROVIDERS: PCP Internal Medicine; Visit Provider Student in an Organized Health Care Education/Training Program
DX: E05.90 Thyrotoxicosis, unspecified without thyrotoxic crisis or storm (principal)
CPT/HCPCS: 78014; A9512; A9516

== ENCOUNTER → 2024-12-16 09:41 | Outpatient (BNV) | payer MEDICARE, SELFPAY | PROVIDERS: PCP Internal Medicine; Visit Provider Radiology Diagnostic Radiology | DX: E04.2 Nontoxic multinodular goiter (principal) | CPT/HCPCS: 78014 ==

== ENCOUNTER 2024-12-27 10:53 | Outpatient (AMB) | payer MEDICARE, SELFPAY ==
--- NOTE | 2024-12-27 11:15 | MHC.OFFVIS ---
Vital Signs 12/27/24 11:20 Height 5 ft 2 in Weight 222 lb BMI 40.6 BP 185/77 H Blood Pressure Location Lt brachial Position Sitting Pulse 82 Intake Visit Reasons: 1 mon follow up S/P Lt. brst lump w/local & SN bx Intake Note: Patient is seen in office for one month follow up visit, post left breast lumpectomy. Pt c/o: seen oncologist at [facility] Dr Merchant is sched to have imaging and then discuss the treatment for radiation, does feel a lump on the left breast Records And Tape Recordings Engineer Required: No Accompanied by: Self / Same As Patient Allergies hydrochlorothiazide Allergy (Intermediate, Verified 11/25/24 11:01) did not resolve HTN aspirin Adverse Reaction (Intermediate, Verified 11/25/24 11:01) Gastrointestinal Upset HPI HPI 1 mon follow up S/P Lt. brst lump w/local & SN bx: Details: She is here for a ffup for her left breast cancer. She udnerwent lumpectomy with sentinel biopsy in Oct, 2024. Her final path report shows the invasive lobular carcinoma with concomitant DCIS and extensive LCIS. Surgeons are negative although close with the DCIS. There is 1 lymph node out of 3 sentinel nodes that is positive for metastatic carcinoma. Current stage is therefore a T2 N1 invasive lobular carcinoma. She continues to feel well. Her incisions are well healed. She has been seen by Dr. Ortega. The patient is a says she does not want to undergo hormonal treatment. She is willing to go for adjuvant radiation however and is supposed to see the radiation oncologist next week. [facility] Medical History Palpitations Mass of right chest wall Subclinical hyperthyroidism Invasive ductal carcinoma of breast Morbid obesity Left breast mass Hyperparathyroidism Multiple thyroid nodules Positive colorectal cancer screening using Cologuard test (~04/30/24) Right sided sciatica Polyarthralgia HTN (hypertension) Type 2 diabetes mellitus Surgical History History of lumpectomy of left breast (11/10/24) History of biopsy History of colonoscopy (~06/23/20) History of tooth extraction History of toe surgery History of delivery Family History Mother Diabetes HTN (hypertension) Father Cardiomegaly Substance use disorder Maternal Grandmother Uterine cancer Maternal Aunt Colon cancer Social History Household Members: Family and Children Housing: House Are you a primary health care marketing manager to a significant other at home: No Do you presently have visiting nurse or other home services: No Alcohol intake: never Patient Tobacco Use Status: Former Tobacco user Tobacco use type: Cigarette Years Smoked: 15 e-Cigarette/Vaping Use: Never Used Second Hand Smoke Exposure: Yes Advance Directives Date on File: 08/18/24 service: No Current occupational status: retired Cognitive needs: Yes (cane) Hearing needs: No Vision needs: Yes (glasses) Review of Systems Const Denies chills and Denies fever(s) Physical Exam Const General: comfortable and no acute distress Nutritional Appearance: obese Chest Other: Lumpectomy and sentinel biopsy site on the left are all well healed, no palpable masses, no tenderness Assessment & Plan Assessment & Plan (1) Invasive lobular carcinoma of breast in female: Code(s): C50.919 - Malignant neoplasm of unspecified site of unspecified female breast Category: Medical Plan: Status post lumpectomy and sentinel node biopsy for a T2 N1 history liver cancer All incisions are well healed She does not want to undergo hormonal treatment. She is to see the radiation oncologist next week for adjuvant radiation I will see her again in the office in 6 months. Coding Level of Care Code Global (67454) Diagnoses Invasive lobular carcinoma of breast in female C50.919
[2024-12-27 11:20] VITALS: BP 185/77; PULSE 82; BMI 40.6
--- OUTSIDE RECORDS SUMMARY | 2024-12-27 11:51 | XMS_ITS | Patient Health Record ---
Author Organization [facility] Address [address] [place] [address] Care Team Providers Care Certified Ophthalmic Assistant Name Role Phone Robert Franco Primary Care Provider Robert Franco Unavailable Unavailable Allergies No Known Allergies Reason For Referral No Information Medications Medication SIG (Take, Route, Frequency, Duration) Notes Start Date End Date Status Atenolol 100 MG 1 tablet Orally Once a day; Duration: 30 day(s) Active Losartan Potassium-HCTZ 50-12.5 MG 1 tablet Orally Once a day; Duration: 30 day(s) Active NovoLOG FlexPen 100 UNIT/ML as directed Subcutaneous Act jeniffer Lantus SoloStar 100 UNIT/ML 20 subcut qhs Active Plan Of Treatment Pending Test Test Name Order Date Urinalysis, Complete 01/26/2021 Insurance Providers Payer Name Payer Address Payer Phone Subscriber Number Group Number Insured Name Patient Relationship to Insured Coverage Start Date Coverage End Date [facility] [address] [address] [place] [address] [id number] Kathy Cowan Self - patient is the insured Medical (General) History Medical History History ICD Code DM hypertension irregiular heart beat Surgical History Surgery Date(Month/Year) c section Hospitalization History Reason Date(Month/Year) as above
--- OUTSIDE RECORDS SUMMARY | 2024-12-27 11:51 | XMS_ITS | Clinical Summary ---
Author Organization [facility] Address [address] [place] [id number] Care Team Providers Care Associate Professor Of History Name Role Phone Unavailable Primary Care Provider Unavailabl e Encounters Date Type Department Care Team Description 11/25/2024 Transcribe Orders [facility] [place] [address] [place] [address] Monik Brown MD Thyroid nodule (Primary Dx) from Last 3 Months Social History Tobacco Use Types Packs/Day Years Used Date Smoking Tobacco: Never Assessed Comments Unknown Sex and Gender Information Value Date Recorded Sex Assigned at Not on file Legal Sex Female 3:12 PM EDT Gender Identity Not on file Sexual Orientation Not on file Plan of Treatment Health Maintenance Due Date Last Done Comments Hepatitis C Virus Screening 1955 DTaP/Tdap/Td Vaccines (1 - Tdap) 11/09/1974 Pneumococcal Vaccines 50+ (1 of 1 - PCV) 11/09/2005 Zoster (Shingles) Vaccine (1 of 2) 11/09/2005 COVID-19 Vaccine ( - 2023-2 5 season) 2024 RSV Vaccine 60 years and old er and Patients (1 - 1-dose 75+ series) 11/09/2030 Hepatitis B Vaccines Aged Out No long er eligible based on patient's age to complete this topic
== END 2024-12-27 11:30 | disposition home or self-care (01) ==
LOC: HO.HGS 10:54
PROVIDERS: PCP Internal Medicine; Visit Provider Surgery
DX: C50.919 Malignant neoplasm of unspecified site of unspecified female breast (principal)
CPT/HCPCS: 99024

== ENCOUNTER → 2024-12-27 10:53 | Outpatient (BNVA) | payer MEDICARE, SELFPAY | PROVIDERS: PCP Internal Medicine; Visit Provider Surgery | DX: D05.82 Other specified type of carcinoma in situ of left breast (principal) | CPT/HCPCS: 99212 ==

== ENCOUNTER 2025-03-11 11:10 | Outpatient (REF) | payer MEDICARE, SELFPAY ==
--- NOTE | ~2025-03-11 | XR_ITS ---
EXAMINATION: XR LUMBOSACRAL SPINE CLINICAL INFORMATION: M54.9 - Dorsalgia, unspecified COMPARISON: None available. TECHNIQUE: Three views of the lumbosacral spine. FINDINGS: SI joints demonstrate subchondral sclerosis and narrowing, left greater than right. There are 5 nonrib-bearing lumbar segments. T12-L1 demonstrates mild disc space narrowing. L2 demonstrates mild disc space narrowing and endplate sclerosis. L2-3 demonstrates mild disc space narrowing. L3-4 demonstrates subtle retrolisthesis and mild disc space narrowing with anterior aspect. L4-5 demonstrates facet sclerosis and osteophytes. L5-S1 demonstrates facet sclerosis and osteophytes. XR/XR lumbar spine 2-3V IMPRESSION: Multilevel degenerative changes in the lumbar spine and bilateral SI joints. Electronically signed by: Mike Wong MD 03/11/2025 11:57 AM EDT
--- OUTSIDE RECORDS SUMMARY | 2025-03-11 12:06 | XMS_ITS | Patient Health Record ---
Author Organization [facility] oup Address [address] [place] [address] Care Team Providers Care Bottom Polisher Name Role Phone Robert Franco Primary Care [...] Insured Coverage Start Date Coverage End Date [facility] [address] [address] [place] [address] [id number] Kathy Cowan Self - patient is the insured Medical (General) History Medical History History ICD Code DM hypertension irregiular heart beat Surgical History Surgery Date(Month/Year) c section Hospitalization History Reason Date(Month/Year) as above
== END 2025-03-11 11:11 | disposition home or self-care (01) ==
LOC: HO.HOSX 11:10
PROVIDERS: PCP Internal Medicine; Visit Provider Physical Medicine & Rehabilitation
DX: G89.29 Other chronic pain (principal); M48.062 Spinal stenosis, lumbar region with neurogenic claudication; M54.50 Low back pain, unspecified; Z79.899 Other long term (current) drug therapy
CPT/HCPCS: 72100; 99202

== ENCOUNTER 2025-03-11 11:10 | Outpatient (AMB) | payer MEDICARE, SELFPAY ==
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
[2025-03-11 11:19] VITALS: BMI 40.1
--- OUTSIDE RECORDS SUMMARY | 2025-03-11 11:56 | XMS_ITS ---
Author Organization [facility] Address [address] [place] [address] Phone Care Team Providers Care Hook Loader Name Role Phone Maurice Moralez MD Primary Care Provider +1- [phone] Active Problems Problem Noted Date Diagnosed Date Breast cancer (CMS/HCC V24, CMS/HCC V28) 025 Hypertension 12/01/2024 Hyperparathyroidism (CMS/HCC V24) 12/01/2024 Invasive ductal carcinoma of breast (CMS/HCC V24, CMS/HCC V28) 12/01/2024 Left breast mass 12/01/2024 Mass of right chest wall 12/01/2024 Morbid obesity (CMS/HCC V24, CMS/HCC V28) 2024 Multiple thyroid nodules 12/01/2024 Palpitations 12/01/2024 Polyarthralgia 12/01/2024 Right sided sciatica 12/01/2024 Type 2 diabetes mellitus (CMS/HCC V24, CMS/[facility] V 28) 12/01/2024 Current Oncology Plans No current plan information found. Past Plans No past plan information found. Radiation Treatments * Treatment Site Started On Last Treated On Elapsed Days Fractions Complete Last Fraction Dose Given/Prescribed Total Dose Given/Prescribed Technique Left Breast Boost 5 5 5 4 of 4 250 cGy / 250 cGy 1,000 cGy / 1, 000 cGy V[place]GAS,[place],LP O Left Breast 5 5 21 16 of 16 267 cGy / 267 cGy 4,272 cGy / 4, 272 cGy Tangents
--- OUTSIDE RECORDS SUMMARY | 2025-03-11 11:56 | XMS_ITS | Clinical Summary ---
Author Organization [facility] Address [address] [place] [address] Care Team Providers Care Malt Liquors Sales Representative Name Role Phone Unavailable Primary Care Provider Unavailabl e Social History Tobacco Use Types Packs/Day Years Used Date Smoking Tobacco: Never Assessed Comments Unknown Sex and Gender Information Value Date Recorded Sex Assigned at Not on file Legal Sex Female 3:12 PM EDT Gender Identity Not on file Sexual Orientation Not on file Plan of Treatment Health Maintenance Due Date Last Done Comments Advance Care Planning 1955 Hepatitis C Virus Screening 1955 DTaP/Tdap/Td Vaccines (1 - Tdap) 11/09/1974 Pneumococcal Vaccines 50+ (1 of 1 - PCV) 11/09/2005 Zoster (Shingles) Vaccine (1 of 2) 11/09/2005 COVID-19 Vaccine ( - 2023-2 5 season) 2025 RSV Vaccine 60 years and old er and Patients (1 - 1-dose 75+ series) 11/09/2030 Hepatitis B Vaccines Aged Out No long er eligible based on patient's age to complete this topic
--- OUTSIDE RECORDS SUMMARY | 2025-03-11 11:56 | XMS_ITS ---
Author Name [facility] Organization Unknown Problems Problem Status Onset Date Problem Type Date of Resoluti on Source Thyroid nodule active EncounterDiagnosisAct CCT
--- OUTSIDE RECORDS SUMMARY | 2025-03-11 11:56 | XMS_ITS | Clinical Summary ---
Author Organization [facility] Address [address] [place] [address] Phone Care Team Providers Care Bronc Breaker Name Role Phone Maurice Moralez MD Primary Care Provider [phone] Allergies Active Allergy Reactions Criticality Noted Date Comments Aspirin 12/01/2024 Gets heart burn and when I go to the bathroom I have blood in my bowels Hydrochlorothiazide 12/01/2024 Medications atenoloL (TENORMIN) 100 mg tablet Take 1 tablet (100 mg total) by mouth 1 (one) time each day. Active insulin lispro 100 unit/mL injection Inject 18 Units under the skin 3 (three) times a day before meals. -Administer within 15 minutes of a meal Active insulin glargine (LANTUS) 100 unit/mL injection Inject 70 Units under the skin at bedtime. Active valsartan (DIOVAN) 80 mg tablet Take 1 tablet (80 mg total) by mouth 1 (one) time each day. Pt informed me that she is not taking at this time I will be talking to my doctor about it. Active atorvastatin (LIPITOR) 10 mg tablet Take 1 tablet (10 mg total) by mouth at bedtime. Active Active Problems Problem Noted Date Diagnosed Date Breast cancer ([facility] V24, CMS/HCC V28) 025 Hypertension 12/01/2024 Hyperparathyroidism ([facility] V24) 12/01/2024 Invasive ductal carcinoma of breast (CMS/HCC V24, [facility] V28) 12/01/2024 Left breast mass 12/01/2024 Mass of right chest wall 12/01/2024 Morbid obesity (CMS/HCC V24, [facility] V28) 2024 Multiple thyroid nodules 12/01/2024 Palpitations 12/01/2024 Polyarthralgia 12/01/2024 Right sided sciatica 12/01/2024 Type 2 diabetes mellitus ([facility] V24, [facility] V 28) 12/01/2024 Encounters Date Type Department Care Team Description 02/16/2025 9:35 AM EDT - 02/16/2025 11:59 PM EDT Hospital Encounter [facility] Radiation Oncology [address] [place] [phone] Sammie Rushing NP Infiltrating ductal carcinoma of left breast ([facility] V24, [facility] V28) (Primary Dx) Discharge Disposition: Home or Self Care 02/16/2025 9:10 AM EDT - 02/16/2025 11:59 PM EDT Hospital Encounter [facility] Radiation Oncology [address] [place] [phone] Discharge Disposition: Home or Self Care 02/15/2025 9:13 AM EDT - 02/15/2025 11:59 PM EDT Hospital Encounter [facility] Radiation Oncology [address] [place] [phone] Discharge Disposition: Home or Self Care 02/14/2025 9:12 AM EDT - 02/14/2025 11:59 PM EDT Hospital Encounter [facility] Radiation Oncology [address] [place] [phone] Discharge Disposition: Home or Self Care 02/11/2025 9:40 AM EDT - 02/11/2025 11:59 PM EDT Hospital Encounter [facility] Radiation Oncology [address] [place] [phone] Amanda Merchant MD Malignant neoplasm of lower-outer quadrant of left breast of female, estrogen receptor positive ([facility] V24, [facility] V28) (Primary Dx) Discharge Disposition: Home or Self Care 02/11/2025 9:08 AM EDT - 02/11/2025 11:59 PM EDT Hospital Encounter [facility] Radiation Oncology [address] [place] [phone] Discharge Disposition: Home or Self Care 02/10/2025 9:26 AM EDT - 02/10/2025 11:59 PM EDT Hospital Encounter [facility] Radiation Oncology [address] [place] [phone] Discharge Disposition: Home or Self Care 02/09/2025 9:28 AM EDT - 02/09/2025 11:59 PM EDT Hospital Encounter [facility] Radiation Oncology [address] [place] [phone] Discharge Disposition: Home or Self Care 02/09/2025 7:29 AM EDT - 02/09/2025 11:59 PM EDT Hospital Encounter [facility] Radiation Oncology [address] [place] [phone] Discharge Disposition: Home or Self Care 02/08/2025 9:18 AM EDT - 02/08/2025 11:59 PM EDT Hospital Encounter [facility] Radiation Oncology [address] [place] [phone] Discharge Disposition: Home or Self Care 02/07/2025 9:24 AM EDT - 02/07/2025 11:59 PM EDT Hospital Encounter [facility] Radiation Oncology [address] [place] [phone] Discharge Disposition: Home or Self Care 02/04/2025 9:29 AM EDT - 02/04/2025 11:59 PM EDT Hospital Encounter [facility] Radiation Oncology [address] [place] [phone] Jose Oliveros MD Infiltrating ductal carcinoma of left breast (CMS/HCC V24, CMS/HCC V28) (Primary Dx) Discharge Disposition: Home or Self Care 02/04/2025 9:13 AM EDT - 02/04/2025 11:59 PM EDT Hospital Encounter [facility] Radiation Oncology [address] [place] [phone] Discharge Disposition: Home or Self Care 02/03/2025 9:08 AM EDT - 02/03/2025 11:59 PM EDT Hospital Encounter [facility] Radiation Oncology [address] [place] [phone] Discharge Disposition: Home or Self Care 02/02/2025 9:16 AM EDT - 02/02/2025 11:59 PM EDT Hospital Encounter [facility] Radiation Oncology [address] [place] [phone] Discharge Disposition: Home or Self Care 02/01/2025 9:19 AM EDT - 02/01/2025 11:59 PM EDT Hospital Encounter [facility] Radiation Oncology [address] [place] [phone] Discharge Disposition: Home or Self Care 01/31/2025 9:20 AM EDT - 01/31/2025 11:59 PM EDT Hospital Encounter [facility] Radiation Oncology [address] [place] [phone] Discharge Disposition: Home or Self Care 01/28/2025 9:13 AM EDT - 01/28/2025 11:59 PM EDT Hospital Encounter [facility] Radiation Oncology [address] [place] [phone] Amanda Merchant MD Infiltrating ductal carcinoma of left breast (CMS/HCC V24, CMS/HCC V28) (Primary Dx) Discharge Disposition: Home or Self Care 01/28/2025 8:49 AM EDT - 01/28/2025 11:59 PM EDT Hospital Encounter [facility] Radiation Oncology [address] [place] [phone] Discharge Disposition: Home or Self Care 01/27/2025 9:04 AM EDT - 01/27/2025 11:59 PM EDT Hospital Encounter [facility] Radiation Oncology [address] [place] [phone] Discharge Disposition: Home or Self Care 01/26/2025 9:10 AM EDT - 01/26/2025 11:59 PM EDT Hospital Encounter [facility] Radiation Oncology [address] [place] [phone] Discharge Disposition: Home or Self Care 01/25/2025 9:05 AM EDT - 01/25/2025 11:59 PM EDT Hospital Encounter [facility] Radiation Oncology [address] [place] [phone] Discharge Disposition: Home or Self Care 01/24/2025 9:08 AM EDT - 01/24/2025 11:59 PM EDT Hospital Encounter [facility] Radiation Oncology [address] [place] [phone] Discharge Disposition: Home or Self Care 01/21/2025 9:32 AM EDT - 01/21/2025 11:59 PM EDT Hospital Encounter [facility] Radiation Oncology [address] [place] [phone] Amanda Merchant MD Primary malignant neoplasm of upper inner quadrant of female breast, left (CMS/HCC V24, CMS/HCC V28) (Primary Dx) Discharge Disposition: Home or Self Care 01/21/2025 9:13 AM EDT - 01/21/2025 11:59 PM EDT Hospital Encounter [facility] Radiation Oncology [address] [place] [phone] Discharge Disposition: Home or Self Care 01/20/2025 9:34 AM EDT - 01/20/2025 11:59 PM EDT Hospital Encounter [facility] Radiation Oncology [address] [place] [phone] Amanda Merchant MD Discharge Disposition: Home or Self Care 01/20/2025 9:22 AM EDT - 01/20/2025 11:59 PM EDT Hospital Encounter [facility] Radiation Oncology [address] [place] [phone] Discharge Disposition: Home or Self Care 01/14/2025 8:23 AM EDT - 01/14/2025 11:59 PM EDT Hospital Encounter [facility] Radiation Oncology [address] [place] [phone] Discharge Disposition: Home or Self Care 01/12/2025 9:56 AM EDT - 01/12/2025 11:59 PM EDT Hospital Encounter [facility] Radiation Oncology [address] [place] [phone] Amanda Merchant MD Malignant neoplasm of upper-outer quadrant of left female breast, unspecified estrogen receptor status ([facility] V24, CMS/HCC V28) (Primary Dx); Breast cancer ([facility] V24, [facility] V28) Discharge Disposition: Home or Self Care 01/12/2025 8:42 AM EDT - 01/12/2025 11:59 PM EDT Hospital Encounter [facility] Radiation Oncology [address] [place] [phone] Infiltrating ductal carcinoma of left breast ([facility] V24, [facility] V28) (Primary Dx) Discharge Disposition: Home or Self Care 12/23/2024 1:30 PM EDT - 12/23/2024 11:59 PM EDT Hospital Encounter [facility] Radiation Oncology [address] [place] [phone] Discharge Disposition: Home or Self Care 12/23/2024 1:24 PM EDT - 12/23/2024 11:59 PM EDT Hospital Encounter [facility] Radiation Oncology [address] [place] [phone] Amanda Merchant MD Breast cancer ([facility] V24, [facility] V28) (Primary Dx); Primary malignant neoplasm of upper inner quadrant of female breast, left ([facility] V24, [facility] V28) Discharge Disposition: Home or Self Care 12/16/2024 Telephone [facility] Radiation Oncology [address] [place] [phone] Geetha Bowers MA from Last 3 Months Surgical History Surgery Date Site/Laterality Comments SECTION, LOW TRANSVERSE BREAST BIOPSY Medical History Medical History Date Comments Hypertension Diabetes mellitus ([facility] V24, [facility] V28) Irregular heart beat Breast cancer ([facility] V24, [facility] V28) Heart murmur Family History Medical History Relation Name Comments Ovarian cancer Maternal Grandmother Breast cancer Paternal Cousin Relation Name Status Comments Maternal Grandmother ovarian Paternal Cousin Alive Social History Tobacco Use Types Packs/Day Years Used Date Smoking Tobacco: Former Cigarettes Q uit: 1988 Smokeless Tobacco: Never Tobacco Cessation:Counseling Given: No Alcohol Use Standard Drinks/Week Comments Not Asked 0 (1 standard drink = 0.6 oz pur e alcohol) last drink age 26 Comments Unknown Sex and Gender Information Value Date Recorded Sex Assigned at Not on file Legal Sex Female 1:58 PM EDT Gender Identity Female 11/30/2024 1:59 PM EDT Sexual Orientation Not on file Obstetrics History Last Filed Vital Signs Vital Sign Reading Time Taken Comments Blood Pressure 166/88 12/23/2024 1:43 PM EDT Pulse 81 12/23/2024 1:43 PM EDT Temperature 36.4 C (97.5 F) 12/23/2024 1:43 PM EDT Respiratory Rate 17 12/23/2024 1:43 PM EDT Oxygen Saturation 97% 12/23/2024 1:43 PM EDT Inhaled Oxygen Concentration - - Weight 101 kg (222 lb 12.8 oz) 12/23/2024 1:43 P M EDT Height 158.8 cm (5' 2.5 ) 12/23/2024 1:43 PM EDT Body Mass Index 40.1 12/23/2024 1:43 PM EDT Plan of Treatment Upcoming Encounters Date Type Department Care Team (Late st Contact Info) Description 03/24/2025 10:00 AM EDT Appointment [facility] Radiation Oncology [address] [place] [phone] Sammie Rushing NP [address] [place] [address] Health Maintenance Due Date Last Done Comments Breast Cancer Screening 1955 Diabetes: Annual GFR (Glomer ular Filtration Rate) 1955 COVID-19 Vaccine (#1) 11/09/1960 Diabetes: Annual Foot Exam 11/09/1965 Diabetes: Annual Retina Eye Exam 11/09/1965 DTaP,Tdap,and Td Vaccines (1 - Tdap) 11/09/1974 Pneumococcal Vaccine: 50+ Ye ars (1 of 2 - PCV) 11/09/1974 Zoster Vaccines (1 of 2) 11/09/1974 RSV Immunization Adult Patie nts (1 - Risk 60-74 years 1-dose series) 2015 Depression Screening 06/23/2024 Cholesterol Screening (Lipid Panel) 12/01/2024 Colorectal Cancer Screening: Colonoscopy 12/01/2024 Diabetes: Annual Urine Albumin-Creatinine Ratio (uACR) 12/01/2024 Diabetes: Blood Sugar Contro l Test (HGBA1C) 12/01/2024 Falls Risk Assessment 12/01/2024 Hepatitis C Screening 12/01/2024 Hypertension/CHF/CAD Annual BMP Blood Test 12/01/2024 Medicare Annual Wellness Visit 12/01/2024 Osteoporosis Screening (Bone Density Screening) 12/01/2024 Social Influencers of Health Screening 12/01/2024 Influenza Vaccine (#1) 2025 HIB Vaccines Aged Out No longer eligi ble based on patient's age to complete this topic HPV Vaccines Aged Out No longer eligi ble based on patient's age to complete this topic Hepatitis A Vaccines Aged Out No long er eligible based on patient's age to complete this topic Hepatitis B Vaccines Aged Out No long er eligible based on patient's age to complete this topic IPV Vaccines Aged Out No longer eligi ble based on patient's age to complete this topic MMR Vaccines Aged Out No longer eligi ble based on patient's age to complete this topic Meningococcal ACWY Vaccine Aged Out N o longer eligible based on patient's age to complete this topic Meningococcal B Vaccine Aged Out No l onger eligible based on patient's age to complete this topic RSV Immunization Patients Un ariel 20 months Aged Out No longer eligible b ased on patient's age to complete this topic Varicella Vaccines Aged Out No longer eligible based on patient's age to complete this topic Procedures Procedure Name Priority Date/Time Associated Diagnosis Comments RAD ONC MSQ TREATMENT SUMMARY Routine 02/16/2025 9:35 AM EDT RAD ONC MSQ TREATMENT SUMMARY Routine 02/15/2025 9:27 AM EDT RAD ONC MSQ TREATMENT SUMMARY Routine 02/14/2025 9:34 AM EDT RAD ONC MSQ TREATMENT SUMMARY Routine 02/11/2025 9:52 AM EDT RAD ONC MSQ TREATMENT SUMMARY Routine 02/10/2025 9:35 AM EDT RAD ONC MSQ TREATMENT SUMMARY Routine 02/09/2025 9:38 AM EDT RAD ONC MSQ TREATMENT SUMMARY Routine 02/08/2025 9:25 AM EDT RAD ONC MSQ TREATMENT SUMMARY Routine 02/07/2025 9:34 AM EDT RAD ONC MSQ TREATMENT SUMMARY Routine 02/04/2025 9:29 AM EDT RAD ONC MSQ TREATMENT SUMMARY Routine 02/03/2025 9:21 AM EDT RAD ONC MSQ TREATMENT SUMMARY Routine 02/02/2025 9:31 AM EDT RAD ONC MSQ TREATMENT SUMMARY Routine 02/01/2025 9:34 AM EDT RAD ONC MSQ TREATMENT SUMMARY Routine 01/31/2025 9:42 AM EDT RAD ONC MSQ TREATMENT SUMMARY Routine 01/28/2025 9:12 AM EDT RAD ONC MSQ TREATMENT SUMMARY Routine 01/27/2025 9:16 AM EDT RAD ONC MSQ TREATMENT SUMMARY Routine 01/26/2025 9:23 AM EDT RAD ONC MSQ TREATMENT SUMMARY Routine 01/25/2025 9:17 AM EDT RAD ONC MSQ TREATMENT SUMMARY Routine 01/24/2025 9:25 AM EDT RAD ONC MSQ TREATMENT SUMMARY Routine 01/21/2025 9:31 AM EDT RAD ONC MSQ TREATMENT SUMMARY Routine 01/20/2025 9:36 AM EDT from Last 3 Months Results * Rad Onc Msq Treatment Summary (02/16/2025 9:35 AM EDT) Treatment Site Left Breast Boost MOSAIQ RADIATION ONCOLOGY Course Number 1 MOSAIQ RADIATION ONCOLOGY Prescribed Fractional Dose 250 cGray MOSAIQ RADIATION ONCOLOGY Prescribed Total Dose 1,000 cGray MOSAIQ RADIATION ONCOLOGY Actual Fractions Delivered 4 MOSAIQ RADIATION ONCOLOGY Actual Session Delivered Dose 250 cGray MOSAIQ RADIATION ONCOLOGY Actual Total Dose 1,000 cGray MOSAIQ RADIATION ONCOLOGY Prescribed Technique VILLEGAS,SRI LANKAN,LPO MOSAIQ RADIATION ONCOLOGY Elapsed Days 5 MOSAIQ RADIATION ONCOLOGY Start Date 02/11/2025 MOSAIQ RADIATION ONCOLOGY Last Date 02/16/2025 MOSAIQ RADIATION ONCOLOGY Prescribed Number of Fractions 4 MOSAIQ RADIATION ONCOLOGY 02/16/2025 9:35 AM EDT Physician Radiation Oncology RADIATION ONCOLO GY ORDERABLES Final Result MOSAIQ RADIATION ONCOLOGY * Rad Onc Msq Treatment Summary (02/15/2025 9:27 AM EDT) Treatment Site Left Breast Boost MOSAIQ RADIATION ONCOLOGY Course Number 1 MOSAIQ RADIATION ONCOLOGY Prescribed Fractional Dose 250 cGray MOSAIQ RADIATION ONCOLOGY Prescribed Total Dose 1,000 cGray MOSAIQ RADIATION ONCOLOGY Actual Fractions Delivered 3 MOSAIQ RADIATION ONCOLOGY Actual Session Delivered Dose 250 cGray MOSAIQ RADIATION ONCOLOGY Actual Total Dose 750 cGray MOSAIQ RADIATION ONCOLOGY Prescribed Technique VILLEGAS,SRI LANKAN,LPO MOSAIQ RADIATION ONCOLOGY Elapsed Days 4 MOSAIQ RADIATION ONCOLOGY Start Date 02/11/2025 MOSAIQ RADIATION ONCOLOGY Last Date 02/15/2025 MOSAIQ RADIATION ONCOLOGY Prescribed Number of Fractions 4 MOSAIQ RADIATION ONCOLOGY 02/15/2025 9:27 AM EDT Physician Radiation Oncology RADIATION ONCTAYLOR GY ORDERABLES Final Result MOSAIQ RADIATION ONCOLOGY * Rad Onc Msq Treatment Summary (02/14/2025 9:34 AM EDT) Treatment Site Left Breast Boost MOSAIQ RADIATION ONCOLOGY Course Number 1 MOSAIQ RADIATION ONCOLOGY Prescribed Fractional Dose 250 cGray MOSAIQ RADIATION ONCOLOGY Prescribed Total Dose 1,000 cGray MOSAIQ RADIATION ONCOLOGY Actual Fractions Delivered 2 MOSAIQ RADIATION ONCOLOGY Actual Session Delivered Dose 250 cGray MOSAIQ RADIATION ONCOLOGY Actual Total Dose 500 cGray MOSAIQ RADIATION ONCOLOGY Prescribed Technique VILLEGAS,SRI LANKAN,LPO MOSAIQ RADIATION ONCOLOGY Elapsed Days 3 MOSAIQ RADIATION ONCOLOGY Start Date 02/11/2025 MOSAIQ RADIATION ONCOLOGY Last Date 02/14/2025 MOSAIQ RADIATION ONCOLOGY Prescribed Number of Fractions 4 MOSAIQ RADIATION ONCOLOGY 02/14/2025 9:34 AM EDT Physician Radiation Oncology RADIATION ONCOLO GY ORDERABLES Final Result MOSAIQ RADIATION ONCOLOGY * Rad Onc Msq Treatment Summary (02/11/2025 9:52 AM EDT) Treatment Site Left Breast Boost MOSAIQ RADIATION ONCOLOGY Course Number 1 MOSAIQ RADIATION ONCOLOGY Prescribed Fractional Dose 250 cGray MOSAIQ RADIATION ONCOLOGY Prescribed Total Dose 1,000 cGray MOSAIQ RADIATION ONCOLOGY Actual Fractions Delivered 1 MOSAIQ RADIATION ONCOLOGY Actual Session Delivered Dose 250 cGray MOSAIQ RADIATION ONCOLOGY Actual Total Dose 250 cGray MOSAIQ RADIATION ONCOLOGY Prescribed Technique VILLEGAS,SRI LANKAN,LPO MOSAIQ RADIATION ONCOLOGY Elapsed Days 0 MOSAIQ RADIATION ONCOLOGY Start Date 02/11/2025 MOSAIQ RADIATION ONCOLOGY Last Date 02/11/2025 MOSAIQ RADIATION ONCOLOGY Prescribed Number of Fractions 4 MOSAIQ RADIATION ONCOLOGY 02/11/2025 9:52 AM EDT Physician Radiation Oncology RADIATION ONCOLO GY ORDERABLES Final Result MOSAIQ RADIATION ONCOLOGY * Rad Onc Msq Treatment Summary (02/10/2025 9:35 AM EDT) Treatment Site Left Breast MOS AIQ RADIATION ONCOLOGY Course Number 1 MOSAIQ RADIATION ONCOLOGY Prescribed Fractional Dose 267 cGray MOSAIQ RADIATION ONCOLOGY Prescribed Total Dose 4,272 cGray MOSAIQ RADIATION ONCOLOGY Actual Fractions Delivered 16 MOSAIQ RADIATION ONCOLOGY Actual Session Delivered Dose 267 cGray MOSAIQ RADIATION ONCOLOGY Actual Total Dose 4,272 cGray MOSAIQ RADIATION ONCOLOGY Prescribed Technique Tangents MOSAIQ RADIATION ONCOLOGY Elapsed Days 21 MOSAIQ RADIATION ONCOLOGY Start Date 01/20/2025 MOSAIQ RADIATION ONCOLOGY Last Date 02/10/2025 MOSAIQ RADIATION ONCOLOGY Prescribed Number of Fractions 16 MOSAIQ RADIATION ONCOLOGY 02/10/2025 9:35 AM EDT Physician Radiation Oncology RADIATION ONCOLO GY ORDERABLES Final Result MOSAIQ RADIATION ONCOLOGY * Rad Onc Msq Treatment Summary (02/09/2025 9:38 AM EDT) Treatment Site Left Breast MOS AIQ RADIATION ONCOLOGY Course Number 1 MOSAIQ RADIATION ONCOLOGY Prescribed Fractional Dose 267 cGray MOSAIQ RADIATION ONCOLOGY Prescribed Total Dose 4,272 cGray MOSAIQ RADIATION ONCOLOGY Actual Fractions Delivered 15 MOSAIQ RADIATION ONCOLOGY Actual Session Delivered Dose 267 cGray MOSAIQ RADIATION ONCOLOGY Actual Total Dose 4,005 cGray MOSAIQ RADIATION ONCOLOGY Prescribed Technique Tangents MOSAIQ RADIATION ONCOLOGY Elapsed Days 20 MOSAIQ RADIATION ONCOLOGY Start Date 01/20/2025 MOSAIQ RADIATION ONCOLOGY Last Date 02/09/2025 MOSAIQ RADIATION ONCOLOGY Prescribed Number of Fractions 16 MOSAIQ RADIATION ONCOLOGY 02/09/2025 9:38 AM EDT Physician Radiation Oncology RADIATION ONCOLO GY ORDERABLES Final Result MOSAIQ RADIATION ONCOLOGY * Rad Onc Msq Treatment Summary (02/08/2025 9:25 AM EDT) Treatment Site Left Breast MOS AIQ RADIATION ONCOLOGY Course Number 1 MOSAIQ RADIATION ONCOLOGY Prescribed Fractional Dose 267 cGray MOSAIQ RADIATION ONCOLOGY Prescribed Total Dose 4,272 cGray MOSAIQ RADIATION ONCOLOGY Actual Fractions Delivered 14 MOSAIQ RADIATION ONCOLOGY Actual Session Delivered Dose 267 cGray MOSAIQ RADIATION ONCOLOGY Actual Total Dose 3,738 cGray MOSAIQ RADIATION ONCOLOGY Prescribed Technique Tangents MOSAIQ RADIATION ONCOLOGY Elapsed Days 19 MOSAIQ RADIATION ONCOLOGY Start Date 01/20/2025 MOSAIQ RADIATION ONCOLOGY Last Date 02/08/2025 MOSAIQ RADIATION ONCOLOGY Prescribed Number of Fractions 16 MOSAIQ RADIATION ONCOLOGY 02/08/2025 9:25 AM EDT Physician Radiation Oncology RADIATION ONCOLO GY ORDERABLES Final Result MOSAIQ RADIATION ONCOLOGY * Rad Onc Msq Treatment Summary (02/07/2025 9:34 AM EDT) Treatment Site Left Breast MOS AIQ RADIATION ONCOLOGY Course Number 1 MOSAIQ RADIATION ONCOLOGY Prescribed Fractional Dose 267 cGray MOSAIQ RADIATION ONCOLOGY Prescribed Total Dose 4,272 cGray MOSAIQ RADIATION ONCOLOGY Actual Fractions Delivered 13 MOSAIQ RADIATION ONCOLOGY Actual Session Delivered Dose 267 cGray MOSAIQ RADIATION ONCOLOGY Actual Total Dose 3,471 cGray MOSAIQ RADIATION ONCOLOGY Prescribed Technique Tangents MOSAIQ RADIATION ONCOLOGY Elapsed Days 18 MOSAIQ RADIATION ONCOLOGY Start Date 01/20/2025 MOSAIQ RADIATION ONCOLOGY Last Date 02/07/2025 MOSAIQ RADIATION ONCOLOGY Prescribed Number of Fractions 16 MOSAIQ RADIATION ONCOLOGY 02/07/2025 9:34 AM EDT Physician Radiation Oncology RADIATION ONCTAYLOR GY ORDERABLES Final Result Performing Organization Address City/[facility]/ZIP Co de Phone Number MOSAIQ RADIATION ONCOLOGY * Rad Onc Msq Treatment Summary (02/04/2025 9:29 AM EDT) Treatment Site Left Breast MOS AIQ RADIATION ONCOLOGY Course Number 1 MOSAIQ RADIATION ONCOLOGY Prescribed Fractional Dose 267 cGray MOSAIQ RADIATION ONCOLOGY Prescribed Total Dose 4,272 cGray MOSAIQ RADIATION ONCOLOGY Actual Fractions Delivered 12 MOSAIQ RADIATION ONCOLOGY Actual Session Delivered Dose 267 cGray MOSAIQ RADIATION ONCOLOGY Actual Total Dose 3,204 cGray MOSAIQ RADIATION ONCOLOGY Prescribed Technique Tangents MOSAIQ RADIATION ONCOLOGY Elapsed Days 15 MOSAIQ RADIATION ONCOLOGY Start Date 01/20/2025 MOSAIQ RADIATION ONCOLOGY Last Date 02/04/2025 MOSAIQ RADIATION ONCOLOGY Prescribed Number of Fractions 16 MOSAIQ RADIATION ONCOLOGY 02/04/2025 9:29 AM EDT Physician Radiation Oncology RADIATION ONCTAYLOR GY ORDERABLES Final Result MOSAIQ RADIATION ONCOLOGY * Rad Onc Msq Treatment Summary (02/03/2025 9:21 AM EDT) Treatment Site Left Breast MOS AIQ RADIATION ONCOLOGY Course Number 1 MOSAIQ RADIATION ONCOLOGY Prescribed Fractional Dose 267 cGray MOSAIQ RADIATION ONCOLOGY Prescribed Total Dose 4,272 cGray MOSAIQ RADIATION ONCOLOGY Actual Fractions Delivered 11 MOS[facility]Q RADIATION ONCOLOGY Actual Session Delivered Dose 267 cGray MOSAIQ RADIATION ONCOLOGY Actual Total Dose 2,937 cGray MOSAIQ RADIATION ONCOLOGY Prescribed Technique Tangents MOSAIQ RADIATION ONCOLOGY Elapsed Days 14 MOSAIQ RADIATION ONCOLOGY Start Date 01/20/2025 MOSAIQ RADIATION ONCOLOGY Last Date 02/03/2025 MOSAIQ RADIATION ONCOLOGY Prescribed Number of Fractions 16 MOSAIQ RADIATION ONCOLOGY 02/03/2025 9:21 AM EDT Physician Radiation Oncology RADIATION ONCOLO GY ORDERABLES Final Result MOSAIQ RADIATION ONCOLOGY * Rad Onc Msq Treatment Summary (02/02/2025 9:31 AM EDT) Treatment Site Left Breast MOS AIQ RADIATION ONCOLOGY Course Number 1 MOSAIQ RADIATION ONCOLOGY Prescribed Fractional Dose 267 cGray MOSAIQ RADIATION ONCOLOGY Prescribed Total Dose 4,272 cGray MOSAIQ RADIATION ONCOLOGY Actual Fractions Delivered 10 MOSAIQ RADIATION ONCOLOGY Actual Session Delivered Dose 267 cGray MOSAIQ RADIATION ONCOLOGY Actual Total Dose 2,670 cGray MOSAIQ RADIATION ONCOLOGY Prescribed Technique Tangents MOSAIQ RADIATION ONCOLOGY Elapsed Days 13 MOSAIQ RADIATION ONCOLOGY Start Date 01/20/2025 MOSAIQ RADIATION ONCOLOGY Last Date 02/02/2025 MOSAIQ RADIATION ONCOLOGY Prescribed Number of Fractions 16 MOSAIQ RADIATION ONCOLOGY 02/02/2025 9:31 AM EDT Physician Radiation Oncology RADIATION ONCTAYLOR GY ORDERABLES Final Result MOSAIQ RADIATION ONCOLOGY * Rad Onc Msq Treatment Summary (02/01/2025 9:34 AM EDT) Treatment Site Left Breast MOS AIQ RADIATION ONCOLOGY Course Number 1 MOSAIQ RADIATION ONCOLOGY Prescribed Fractional Dose 267 cGray MOSAIQ RADIATION ONCOLOGY Prescribed Total Dose 4,272 cGray MOSAIQ RADIATION ONCOLOGY Actual Fractions Delivered 9 MOSAIQ RADIATION ONCOLOGY Actual Session Delivered Dose 267 cGray MOSAIQ RADIATION ONCOLOGY Actual Total Dose 2,403 cGray MOSAIQ RADIATION ONCOLOGY Prescribed Technique Tangents MOSAIQ RADIATION ONCOLOGY Elapsed Days 12 MOSAIQ RADIATION ONCOLOGY Start Date 01/20/2025 MOSAIQ RADIATION ONCOLOGY Last Date 02/01/2025 MOSAIQ RADIATION ONCOLOGY Prescribed Number of Fractions 16 MOSAIQ RADIATION ONCOLOGY 02/01/2025 9:34 AM EDT Physician Radiation Oncology RADIATION ONCTAYLOR GY ORDERABLES Final Result MOSAIQ RADIATION ONCOLOGY * Rad Onc Msq Treatment Summary (01/31/2025 9:42 AM EDT) Treatment Site Left Breast MOS AIQ RADIATION ONCOLOGY Course Number 1 MOSAIQ RADIATION ONCOLOGY Prescribed Fractional Dose 267 cGray MOSAIQ RADIATION ONCOLOGY Prescribed Total Dose 4,272 cGray MOSAIQ RADIATION ONCOLOGY Actual Fractions Delivered 8 MOSAIQ RADIATION ONCOLOGY Actual Session Delivered Dose 267 cGray MOSAIQ RADIATION ONCOLOGY Actual Total Dose 2,136 cGray MOSAIQ RADIATION ONCOLOGY Prescribed Technique Tangents MOSAIQ RADIATION ONCOLOGY Elapsed Days 11 MOSAIQ RADIATION ONCOLOGY Start Date 01/20/2025 MOSAIQ RADIATION ONCOLOGY Last Date 01/31/2025 MOSAIQ RADIATION ONCOLOGY Prescribed Number of Fractions 16 MOSAIQ RADIATION ONCOLOGY 01/31/2025 9:42 AM EDT Physician Radiation Oncology RADIATION ONCTAYLOR GY ORDERABLES Final Result MOSAIQ RADIATION ONCOLOGY * Rad Onc Msq Treatment Summary (01/28/2025 9:12 AM EDT) Treatment Site Left Breast MOS AIQ RADIATION ONCOLOGY Course Number 1 MOSAIQ RADIATION ONCOLOGY Prescribed Fractional Dose 267 cGray MOSAIQ RADIATION ONCOLOGY Prescribed Total Dose 4,272 cGray MOSAIQ RADIATION ONCOLOGY Actual Fractions Delivered 7 MOSAIQ RADIATION ONCOLOGY Actual Session Delivered Dose 267 cGray MOSAIQ RADIATION ONCOLOGY Actual Total Dose 1,869 cGray MOSAIQ RADIATION ONCOLOGY Prescribed Technique Tangents MOSAIQ RADIATION ONCOLOGY Elapsed Days 8 MOSAIQ RADIATION ONCOLOGY Start Date 01/20/2025 MOSAIQ RADIATION ONCOLOGY Last Date 01/28/2025 MOSAIQ RADIATION ONCOLOGY Prescribed Number of Fractions 16 MOSAIQ RADIATION ONCOLOGY 01/28/2025 9:12 AM EDT us Physician Radiation Oncology RADIATION ONCTAYLOR GY ORDERABLES Final Result MOSAIQ RADIATION ONCOLOGY * Rad Onc Msq Treatment Summary (01/27/2025 9:16 AM EDT) Treatment Site Left Breast MOS AIQ RADIATION ONCOLOGY Course Number 1 MOSAIQ RADIATION ONCOLOGY Prescribed Fractional Dose 267 cGray MOSAIQ RADIATION ONCOLOGY Prescribed Total Dose 4,272 cGray MOSAIQ RADIATION ONCOLOGY Actual Fractions Delivered 6 MOSAIQ RADIATION ONCOLOGY Actual Session Delivered Dose 267 cGray MOSAIQ RADIATION ONCOLOGY Actual Total Dose 1,602 cGray MOSAIQ RADIATION ONCOLOGY Prescribed Technique Tangents MOSAIQ RADIATION ONCOLOGY Elapsed Days 7 MOSAIQ RADIATION ONCOLOGY Start Date 01/20/2025 MOSAIQ RADIATION ONCOLOGY Last Date 01/27/2025 MOSAIQ RADIATION ONCOLOGY Prescribed Number of Fractions 16 MOSAIQ RADIATION ONCOLOGY 01/27/2025 9:16 AM EDT Physician Radiation Oncology RADIATION [place]Y ORDERABLES Final Result MOSAIQ RADIATION ONCOLOGY * Rad Onc Msq Treatment Summary (01/26/2025 9:23 AM EDT) Treatment Site Left Breast MOS AIQ RADIATION ONCOLOGY Course Number 1 MOSAIQ RADIATION ONCOLOGY Prescribed Fractional Dose 267 cGray MOSAIQ RADIATION ONCOLOGY Prescribed Total Dose 4,272 cGray MOSAIQ RADIATION ONCOLOGY Actual Fractions Delivered 5 MOSAIQ RADIATION ONCOLOGY Actual Session Delivered Dose 267 cGray MOSAIQ RADIATION ONCOLOGY Actual Total Dose 1,335 cGray MOSAIQ RADIATION ONCOLOGY Prescribed Technique Tangents MOSAIQ RADIATION ONCOLOGY Elapsed Days 6 MOSAIQ RADIATION ONCOLOGY Start Date 01/20/2025 MOSAIQ RADIATION ONCOLOGY Last Date 01/26/2025 MOSAIQ RADIATION ONCOLOGY Prescribed Number of Fractions 16 MOSAIQ RADIATION ONCOLOGY 01/26/2025 9:23 AM EDT us Physician Radiation Oncology RADIATION ONCTAYLOR GY ORDERABLES Final Result MOSAIQ RADIATION ONCOLOGY * Rad Onc Msq Treatment Summary (01/25/2025 9:17 AM EDT) Treatment Site Left Breast MOS AIQ RADIATION ONCOLOGY Course Number 1 MOSAIQ RADIATION ONCOLOGY Prescribed Fractional Dose 267 cGray MOSAIQ RADIATION ONCOLOGY Prescribed Total Dose 4,272 cGray MOSAIQ RADIATION ONCOLOGY Actual Fractions Delivered 4 MOSAIQ RADIATION ONCOLOGY Actual Session Delivered Dose 267 cGray MOSAIQ RADIATION ONCOLOGY Actual Total Dose 1,068 cGray MOSAIQ RADIATION ONCOLOGY Prescribed Technique Tangents MOSAIQ RADIATION ONCOLOGY Elapsed Days 5 MOSAIQ RADIATION ONCOLOGY Start Date 01/20/2025 MOSAIQ RADIATION ONCOLOGY Last Date 01/25/2025 MOSAIQ RADIATION ONCOLOGY Prescribed Number of Fractions 16 MOSAIQ RADIATION ONCOLOGY 01/25/2025 9:17 AM EDT Physician Radiation Oncology RADIATION ONCTAYLOR GY ORDERABLES Final Result MOSAIQ RADIATION ONCOLOGY * Rad Onc Msq Treatment Summary (01/24/2025 9:25 AM EDT) Treatment Site Left Breast MOS AIQ RADIATION ONCOLOGY Course Number 1 MOSAIQ RADIATION ONCOLOGY Prescribed Fractional Dose 267 cGray MOSAIQ RADIATION ONCOLOGY Prescribed Total Dose 4,272 cGray MOSAIQ RADIATION ONCOLOGY Actual Fractions Delivered 3 MOSAIQ RADIATION ONCOLOGY Actual Session Delivered Dose 267 cGray MOSAIQ RADIATION ONCOLOGY Actual Total Dose 801 cGray MOSAIQ RADIATION ONCOLOGY Prescribed Technique Tangents MOSAIQ RADIATION ONCOLOGY Elapsed Days 4 MOSAIQ RADIATION ONCOLOGY Start Date 01/20/2025 MOSAIQ RADIATION ONCOLOGY Last Date 01/24/2025 MOSAIQ RADIATION ONCOLOGY Prescribed Number of Fractions 16 MOSAIQ RADIATION ONCOLOGY 01/24/2025 9:25 AM EDT Physician Radiation Oncology RADIATION ONCTAYLOR GY ORDERABLES Final Result MOSAIQ RADIATION ONCOLOGY * Rad Onc Msq Treatment Summary (01/21/2025 9:31 AM EDT) Treatment Site Left Breast MOS AIQ RADIATION ONCOLOGY Course Number 1 MOSAIQ RADIATION ONCOLOGY Prescribed Fractional Dose 267 cGray MOSAIQ RADIATION ONCOLOGY Prescribed Total Dose 4,272 cGray MOSAIQ RADIATION ONCOLOGY Actual Fractions Delivered 2 MOSAIQ RADIATION ONCOLOGY Actual Session Delivered Dose 267 cGray MOSAIQ RADIATION ONCOLOGY Actual Total Dose 534 cGray MOSAIQ RADIATION ONCOLOGY Prescribed Technique Tangents MOSAIQ RADIATION ONCOLOGY Elapsed Days 1 MOSAIQ RADIATION ONCOLOGY Start Date 01/20/2025 MOSAIQ RADIATION ONCOLOGY Last Date 01/21/2025 MOSAIQ RADIATION ONCOLOGY Prescribed Number of Fractions 16 MOSAIQ RADIATION ONCOLOGY 01/21/2025 9:31 AM EDT Physician Radiation Oncology RADIATION ONCOLO GY ORDERABLES Final Result MOSAIQ RADIATION ONCOLOGY * Rad Onc Msq Treatment Summary (01/20/2025 9:36 AM EDT) Treatment Site Left Breast MOS AIQ RADIATION ONCOLOGY Course Number 1 MOSAIQ RADIATION ONCOLOGY Prescribed Fractional Dose 267 cGray MOSAIQ RADIATION ONCOLOGY Prescribed Total Dose 4,272 cGray MOSAIQ RADIATION ONCOLOGY Actual Fractions Delivered 1 MOSAIQ RADIATION ONCOLOGY Actual Session Delivered Dose 267 cGray MOSAIQ RADIATION ONCOLOGY Actual Total Dose 267 cGray MOSAIQ RADIATION ONCOLOGY Prescribed Technique Tangents MOSAIQ RADIATION ONCOLOGY Elapsed Days 0 MOSAIQ RADIATION ONCOLOGY Start Date 01/20/2025 MOSAIQ RADIATION ONCOLOGY Last Date 01/20/2025 MOSAIQ RADIATION ONCOLOGY Prescribed Number of Fractions 16 MOSAIQ RADIATION ONCOLOGY 01/20/2025 9:36 AM EDT Physician Radiation Oncology RADIATION ONCOLO GY ORDERABLES Final Result Performing Organization Address City/[facility] Co de Phone Number MOSAIQ RADIATION ONCOLOGY from Last 3 Months Insurance [facility] MEDIC[facility] Care Teams Bronc Breaker Relationship Specialty Start Date End Date Kirt, Maurice, MD [facility] [address] [place] [address] [address] MICHELLE SAWYER, [place] [id number] PCP - General Internal Medicine 11/30/24
== END 2025-03-11 12:13 | disposition home or self-care (01) ==
LOC: HO.HOS 11:10
PROVIDERS: PCP Internal Medicine; Visit Provider Physical Medicine & Rehabilitation
DX: M54.50 Low back pain, unspecified (principal); G89.29 Other chronic pain; M48.062 Spinal stenosis, lumbar region with neurogenic claudication
CPT/HCPCS: 99204

== ENCOUNTER → 2025-03-11 11:40 | Outpatient (BNV) | payer MEDICARE, SELFPAY | PROVIDERS: PCP Internal Medicine; Visit Provider Radiology Diagnostic Radiology | DX: M51.360 Other intervertebral disc degeneration, lumbar region with discogenic back pain only (principal) | CPT/HCPCS: 72100 ==

== ENCOUNTER 2025-03-21 10:46 | Outpatient (AMB) | payer MEDICARE, SELFPAY ==
--- OUTSIDE RECORDS SUMMARY | 2025-02-11 09:31 | XMS_ITS | Encounter Summary ---
Author Organization [facility] Address [address] [place] [address] Care Team Providers Care Assembly Machine Tool Setter Name Role Phone Maurice Moralez MD Primary Care Provider [phone]- [phone] Encounter Details Date Type Department Care Team ([facility] Contact Info) Description 02/11/2025 9:31 AM EDT Hospital Encounter [facility] Radiation Oncology [address] [place] [phone] Amanda Merchant MD [address] [place] [address] Social History Tobacco Use Types Packs/Day Years Used Date Smoking Tobacco: Former Cigarettes Q uit: 1988 Smokeless Tobacco: Never Alcohol Use Standard Drinks/Week Comments Not Asked 0 (1 standard drink = 0.6 oz pur e alcohol) last drink age 26 Comments Unknown Sex and Gender Information Value Date Recorded Sex Assigned at Not on file Legal Sex Female 1:58 PM EDT Gender Identity Female 11/30/2024 1:59 PM EDT Sexual Orientation Not on file documented as of this encounter Plan of Treatment Upcoming Encounters Date Type Department Care Team (Late Contact Info) Description 03/24/2025 10:00 AM EDT Appointment [facility] Radiation Oncology [address] [place] [phone] Sammie Rushing NP [address] [place] [address] documented as of this encounter Visit Diagnoses Not on filedocumented in this encounter Care Teams Assembly Machine Tool Setter Relationship Specialty Start Date End Date Maurice Moralez MD [facility] [address] [place] [address] [address] [place] [address] PCP - General Internal Medicine 11/30/24 documented as of this encounter
[2025-03-21 10:49] VITALS: BP 120/80; PULSE 86; O2SAT 96; BMI 40.7
--- NOTE | 2025-03-21 10:49 | MHC.OFFVIS ---
Vital Signs 03/21/25 10:49 Height 5 ft 2 in Weight 222 lb 10.67 oz BMI 40.7 BP 120/80 Blood Pressure Location Rt brachial Position Sitting Pulse 86 Pulse Source Pulse Oximeter Pulse Oximetry (%) 96 Oxygen Delivery Method Room Air Intake Visit Reasons: NMG Intake Note: Patient present today for NMG office visit. Assistant Director Required: No Accompanied by: Self / Same As Patient Allergies hydrochlorothiazide Allergy (Intermediate, Verified 03/21/25 10:51) did not resolve HTN aspirin Adverse Reaction (Intermediate, Verified 03/21/25 10:51) Gastrointestinal Upset Medication List - Last Reconciled 03/21/25 by Monik Brown MD atenolol 100 mg PO DAILY atorvastatin 10 mg PO BEDTIME flash glucose sensor (FreeStyle Ela 2 Sensor kit) check bs 4 times a day ibuprofen 600 mg PO Q6H PRN insulin glargine (Lantus Solostar U-100 Insulin) 70 units (0.7 mL) subcut BEDTIME insulin lispro 18 units subcut TID pen needle, diabetic (BD Ultra-Fine Micro Pen Needle) As directed valsartan 80 mg PO DAILY HPI Comments Details: 69-year-old female coming in today for follow up of Nontoxic multinodular goiter. HPI Diagnosed in 2022 in [place]. Was told she needed a repeat US in 1 year, no FNA done. 07/28/2024: Ultrasound of the thyroid, I reviewed the images myself which showed a right superior pole nodule measuring 2.8 cm which is solid, hypoechoic, even though the report says extrathyroidal extension, this is not very clear on the imaging, this is somewhere between a TR 4 versus a TR 5 nodule. Regardless meets criteria for FNA.Another right mid lobe 1 cm TR 4 nodule with peripheral calcifications. A right inferior pole 1.6 cm solid hypoechoic TR 4 category nodule that does meet criteria for FNA. She also has a an isthmus 1.4 cm solid hypoechoic nodule with a extrathyroidal extension, TR 5 category nodule. Also meets criteria for FNA. And lastly a left inferior pole 1.5 cm solid isoechoic TR 3 category nodule. Patient currently denies heat or cold intolerance, diarrhea or constipation, hair loss, , anxiety, weight changes, mood changes, low energy, changes in appearance of eyes or vision changes, tremors, increased diaphoresis or dry skin. ? Has an irregular heart beat. Patient denies any difficulty swallowing, pain on swallowing or voice changes or difficulty breathing. Patient denies any history of childhood neck radiation. Denies having ever used lithium, amiodarone or biotin supplements. Patient denies any family history of thyroid cancer . 2 neices have thyroid disease, unclear which one but take medication so likley hypothyroidism. 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 09/14/2024: TSH 0.05, free T4 0.99, today she denies any tremors, heat intolerance, does have chronic palpitations, she is complaining of a few episodes of loose stools. No weight loss. No mood changes. 09/22/2024: Underwent FNA of the right superior 2.8 cm nodule: AUS with nuclear atypia Clements category 3, Afirma suspicious ( 50% risk of malignancy); as well as the isthmus 1.4 cm nodule which came back as AUS with nuclear atypia Clements category 3, Afirma benign (4% risk of malignancy) Interval history 11/25/2024: Underwent left breast mass biopsy was found to have invasive lobular carcinoma of the left breast status post lumpectomy in October 2024. s/p radiation. Repeat labs 10/14/2024 again showed low TSH of 0.05 with normal free T4 of 0.98, total T3 of 129 (76-181), undetectable TSI, TPO and TSH receptor antibodies. We had referred her to Dr. Shayne Shore at [facility], however insurance does not cover out of network providers and they provided her Dr. Matti velasquez name in [facility] was covered by her insurance for thyroid surgery. Has thyroid uptake and scan scheduled for 12/16. Interval history 03/21/2025 12/16/2024, thyroid uptake and scan showed elevated uptake with a heterogenous appearance consistent with multiple nodules, consistent with toxic nodular goiter. Following with Oncology for breast cancer In November 2024 we have sent referral to ENT then [place] which her insurance covered for evaluation for total thyroidectomy, patient never heard from them. D3 August 2024 29.5 on vitamin D 1000 units daily, somtimes skips it Physical exam General: sitting comfortably in no acute distress HEENT: normocephalic/atraumatic Neck: supple, isthmus 2 cm palpable nodule Cardiac: normal heart sounds Pulm: normal breath sounds B/L, no added breath sounds Abd: not distended, no tenderness Laboratory Tests 06/11/23 08:19 TSH 0.51 Laboratory Tests 09/14/24 08:58 TSH 0.05 L Free T4 0.99 Laboratory Tests 10/14/24 09:38 TSH 0.05 L Free T4 0.98 Total T3 129 Thyroid Stim Immunoglob <89 Thyroid Peroxidase Ab <1 TSH Receptor Ab <1.00 EXAMINATION: PR THYROID IMAGING AND UPTAKE 12/16/2024 CLINICAL INFORMATION: E05.90 - Thyrotoxicosis, unspecified without thyrotoxic crisis or storm COMPARISON: Correlation is made with a thyroid ultrasound dated 07/28/2024. TECHNIQUE: Following the oral administration of 205 microcuries of I-123 sodium iodide, thyroid uptake was performed and expressed as a percentage of the administrated dose. Gamma scintillation camera images of the thyroid in the anterior and right and left anterior oblique views were obtained using a pinhole collimator following the administration of 10 mCi Tc-99m pertechnetate. FINDINGS: Images of the thyroid demonstrate heterogeneous uptake in a lobulated appearance consistent with the multiple nodules noted on ultrasound. There are areas of increased uptake on the right. The uptake is 7.91% at 4 hours and 43.04% at 24 hours. PR/PR thyroid w uptake IMPRESSION: 1. Heterogeneous uptake with a lobulated appearance consistent with the multiple nodules noted on thyroid ultrasound. 2. Elevated 24-hour uptake of 43.04%. Electronically signed by: Jesse Lindsay MD 12/17/2024 12:30 PM EDT US THYROID 07/28/24 CLINICAL INFORMATION: Nontoxic single thyroid nodule. COMPARISON: None available. TECHNIQUE: Linear transducer grayscale and color Doppler examination with attention to the region of the thyroid. FINDINGS: SIZE: Measurements of the thyroid lobes and nodules are given in sagittal, anteroposterior and transverse dimensions respectively. Right Thyroid Lobe: 6.3 x 3.1 x 2.6 cm, volume 26.7 mL. Parenchyma: The gland echotexture is heterogeneous. Thyroid vascularity is increased. Left Thyroid Lobe: 6.2 x 2.5 x 1.9 cm, volume 15.7 mL. Parenchyma: The gland echotexture is heterogeneous. Thyroid vascularity is increased. Isthmus: 1.0 cm in maximum AP dimension. Estimated total number of nodules greater than or equal to 1 cm: 5. Supervisor [place] nodules are described as follows: 1. Location: upper right thyroid lobe. Size: 2.2 x 2.0 x 2.8 cm, volume 6.56 mL. Nodule characteristics: Composition: Solid/almost completely solid (2). Echogenicity: Hypoechoic (2). Shape: Not taller than wide (0). Margins: 3 Echogenic Foci: No 0 ACR TI-RADS total points: 7 ACR TI-RADS category: 5 2. Location: Midportion, right thyroid lobe. Size: 1.0 x 1.1 x 1.1 cm, volume 0.64 mL. Nodule characteristics: Composition: Solid (2). Echogenicity: Undetermined (1) Shape: Not taller than wide (0). Margins: Smooth (0). Echogenic Foci: Peripheral calcifications (2). ACR TI-RADS total points: 5 ACR TI-RADS category: 4 3. Location: Lower pole, right thyroid lobe. Size: 1.6 x 1.1 x 1.1 cm, volume 1.01 mL. Nodule characteristics: Composition: Solid/almost completely solid (2). Echogenicity: Hypoechoic (2). Shape: Not taller than wide (0). Margins: Smooth (0). Echogenic Foci: None (0). ACR TI-RADS total points: 4 ACR TI-RADS category: 4 4. Location: Thyroid isthmus. Size: 1.4 x 1.0 x 0.9 cm, volume 0.94 mL. Nodule characteristics: Composition: Solid (2). Echogenicity: Hypoechoic (2). Shape: Not taller than wide (0). Margins: 3 Echogenic Foci: None (0). ACR TI-RADS total points: 7 ACR TI-RADS category: 5 5. Location: [Left Thyroid lobe mid portion. Size: 1.5 x 1.2 x 1.4 cm, volume 1.29 mL. Nodule characteristics: Composition: Solid (2). Echogenicity: Isoechoic (1). Shape: Not taller than wide (0). Margins: Smooth (0). Echogenic Foci: None (0). ACR TI-RADS total points: 3 ACR TI-RADS category: 3 NODES: No lymphadenopathy is seen in the tissue surrounding the thyroid gland. US/US thyroid IMPRESSION: ACR TI RADS category 4 and 5 ACR TI-RADS RECOMMENDATION REFERENCE: Ultrasound-guided fine-needle aspiration, followup ultrasound, no further follow up. * TR1 (0 point) and TR2 (2 points): No FNA or follow up. * TR3 (3 points): FNA if more than or equal to 2.5 cm in maximum dimension, followup ultrasound in 1, 3 and 5 years if 1.5 to 2.4 cm in maximum dimension. * TR4 (4-6 points): FNA if more than or equal to 1.5 cm in maximum dimension, followup ultrasound in 1, 2, 3 and 5 years if 1 to 1.4 cm in maximum dimension. * TR5 (more than or equal to 7 points): FNA if more than or equal to 1 cm in maximum dimension, followup ultrasound every year for 5 years if 0.5 to 0.9 cm in maximum dimension. * TR3, TR4 or TR5 nodules that are below the size threshold for followup receive no follow up. Electronically signed by: Christophe Chaudhry MD 08/03/2024 08:29 AM [facility] Medical History Palpitations Mass of right chest wall Subclinical hyperthyroidism Invasive ductal carcinoma of breast Morbid obesity Left breast mass Hyperparathyroidism Multiple thyroid nodules Positive colorectal cancer screening using Cologuard test (~04/30/24) Right sided sciatica Polyarthralgia HTN (hypertension) Type 2 diabetes mellitus Surgical History History of lumpectomy of left breast (11/10/24) History of biopsy History of colonoscopy (~06/23/20) History of tooth extraction History of toe surgery History of delivery Family History Mother Diabetes HTN (hypertension) Father Cardiomegaly Substance use disorder Maternal Grandmother Uterine cancer Maternal Aunt Colon cancer Social History Household Members: Family and Children Housing: House Are you a primary memory care program director to a significant other at home: No Do you presently have visiting nurse or other home services: No Alcohol intake: never Patient Tobacco Use Status: Former Tobacco user Tobacco use type: Cigarette Years Smoked: 15 e-Cigarette/Vaping Use: Never Used Second Hand Smoke Exposure: Yes Advance Directives Date on File: 08/18/24 service: No Current occupational status: retired Cognitive needs: Yes (cane) Hearing needs: No Vision needs: Yes (glasses) Assessment & Plan Assessment & Plan (1) Multiple thyroid nodules: Comment: had appt w/endorinology 10/13/24 Code(s): E04.2 - Nontoxic multinodular goiter Category: Medical Plan: 69-year-old female With no personal history of head or neck radiation, no family history of thyroid cancer here today for follow up of nontoxic multinodular goiter. diagnosed in 2022. In 2022 her ultrasound was done in [place]. She recently moved to [place]. 07/28/2024: Ultrasound of the thyroid, I reviewed the images myself which showed a right superior pole nodule measuring 2.8 cm which is solid, hypoechoic, even though the report says extrathyroidal extension, this is not very clear on the imaging, this is somewhere between a TR 4 versus a TR 5 nodule. Regardless meets criteria for FNA.Another right mid lobe 1 cm TR 4 nodule with peripheral calcifications. A right inferior pole 1.6 cm solid hypoechoic TR 4 category nodule that does meet criteria for FNA. She also has a an isthmus 1.4 cm solid hypoechoic nodule with a extrathyroidal extension, TR 5 category nodule. Also meets criteria for FNA. And lastly a left inferior pole 1.5 cm solid isoechoic TR 3 category nodule. 09/14/2024: TSH 0.05, free T4 0.99 09/22/2024: Underwent FNA of the right superior 2.8 cm nodule: AUS with nuclear atypia Clements category 3, Afirma suspicious ( 50% risk of malignancy); as well as the isthmus 1.4 cm nodule which came back as AUS with nuclear atypia Clements category 3, Afirma benign (4% risk of malignancy) she does not have any compressive symptoms. Repeat labs 10/14/2024 again showed low TSH of 0.05 with normal free T4 of 0.98, total T3 of 129 (76-181), undetectable TSI, TPO and TSH receptor antibodies. 12/16/2024, thyroid uptake and scan showed elevated uptake with a heterogenous appearance consistent with multiple nodules, consistent with toxic nodular goiter We had sent referral for total thyroidectomy in November [address] Matti velasquez in [place] ear nose [facility] throat however patient never heard from their office. At this time I again discussed in detail that given the right superior nodule came back as suspicious on molecular genetics, she needs surgical evaluation. Given she also has subclinical hyperthyroidism, with a thyroid uptake and scan consistent with toxic nodules with the TSH being less than 0.1, with a age greater than 65 I would recommend total thyroidectomy which we will address both her nodules as well as the overactivity. She would not be a good candidate for radioactive iodine ablation for subclinical hyperthyroidism given history of breast cancer. Discussed risks of bleeding, infection, damage to surrounding structures, damage to parathyroid glands. Vitamin-D level was 29.5 from August 2024. She intermittently takes vitamin-D 1000 units daily. Plan: -sent referral to again thyroid surgeon, Dr. Matti velasquez in [place] -once she meets with the surgeon and has a date for surgery, I have asked the patient to call us and let us know to schedule 6 weeks postoperative follow up -for now we will tentatively put her on the schedule for August 2025 with blood work to be done prior to appointment -vitamin-D 1000 units daily (2) Subclinical hyperthyroidism: Code(s): E05.90 - Thyrotoxicosis, unspecified without thyrotoxic crisis or storm Category: Medical Plan: See above Plan See above Orders: Orders Thyroid Stimulating Hormone 08/15/25 E04.2 - Nontoxic multinodular goiter, E04.9 - Nontoxic goiter, unspecified, E05.90 - Thyrotoxicosis, unspecified without thyrotoxic crisis or storm Free T4 (Free Thyroxine) 08/15/25 E04.2 - Nontoxic multinodular goiter, E04.9 - Nontoxic goiter, unspecified, E05.90 - Thyrotoxicosis, unspecified without thyrotoxic crisis or storm Triiodothyronine T3 Total 08/15/25 E04.2 - Nontoxic multinodular goiter, E04.9 - Nontoxic goiter, unspecified, E05.90 - Thyrotoxicosis, unspecified without thyrotoxic crisis or storm Referrals Ear/Nose/Throat Referral E04.2 - Nontoxic multinodular goiter, E05.90 - Thyrotoxicosis, unspecified without thyrotoxic crisis or storm Coding Level of Care Code Est Pt Level 3 (86177) Diagnoses Multiple thyroid nodules E04.2 Subclinical hyperthyroidism E05.90
--- OUTSIDE RECORDS SUMMARY | 2025-03-21 12:18 | XMS_ITS | Patient Health Record ---
Author Organization [facility] Address [address] [place] [address] Care Team Providers Care Cad Engineer Name Role Phone Robert Franco Primary Care Provider [phone] Robert Franco Unavailable Unavailable Allergies No [...] Insured Coverage Start Date Coverage End Date [employer] [address] [address] [place] [address] [phone] [id number] Kathy Cowan Self - patient is the insured Medical (General) History Medical History History ICD Code DM hypertension irregiular heart beat Surgical History Surgery Date(Month/Year) c section Hospitalization History Reason Date(Month/Year) as above
--- OUTSIDE RECORDS SUMMARY | 2025-03-21 12:19 | XMS_ITS ---
Author Organization [facility] Address [address] [place] [address] Phone Care Team Providers Care Corsage Maker Name Role Phone Maurice Moralez MD Primary Care Provider [phone] Active Problems Problem Noted Date Diagnosed Date [...] 12/01/2024 Type 2 diabetes mellitus (CMS/HCC V24, CMS/HCC V 28) 12/01/2024 Current Treatment and Therapy Plans No current plan information found. Past Treatment and Therapy Plans No past plan information found. Current Radiation Episodes * Radiation Therapy: BreastOverview* First Treatment Date Latest Treatment Date Treatment Site Technique Goal Episode Provider 01/20/2025 02/16/2025 Breast Curative Sammie Rushing NP * Linked Problems Treatment Courses* Course 1 01/20/2025 - 02/16/2025 Treatment Sites Treatment Period Fraction Dose Fractions Total Dose Left Breast Boost 02/11/2025 - 02/16/2025 250 / 250 cGy 4 1,000 / 1,000 cGy Left Breast 01/20/2025 - 02/10/2025 267 / 267 cGy 4,272 / 4,272 cGy
--- OUTSIDE RECORDS SUMMARY | 2025-03-21 12:19 | XMS_ITS | Clinical Summary ---
Author Organization [facility] Address [address] [place] [address] Care Team Providers Care Electric Tape Slitter Name Role Phone Unavailable Primary Care Provider [...]
--- OUTSIDE RECORDS SUMMARY | 2025-03-21 12:19 | XMS_ITS | Clinical Summary ---
Author Organization [facility] Address [address] [place] [address] Phone Care Team Providers Care Squeegee Finisher Name Role Phone Maurice Moralez MD Primary Care Provider [phone]- [phone] Allergies Active Allergy Reactions Criticality Noted Date [...] Problem Noted Date Diagnosed Date Breast cancer ([facility] V24, CMS/HCC V28) 025 Hypertension 12/01/2024 Hyperparathyroidism ([facility] V24) 12/01/2024 Invasive ductal carcinoma of breast (CMS/HCC V24, CMS/[facility] V28) 12/01/2024 Left breast mass 12/01/2024 Mass of right chest wall 12/01/2024 Morbid obesity (CMS/HCC V24, CMS/[facility] V28) 2024 Multiple thyroid nodules 12/01/2024 Palpitations 12/01/2024 Polyarthralgia 12/01/2024 Right sided sciatica 12/01/2024 Type 2 diabetes mellitus ([facility]/HCC V24, [facility] V 28) 12/01/2024 Encounters Date Type Department Care Team Description 02/16/2025 9:35 AM EDT - 02/16/2025 11:59 PM EDT Hospital Encounter [facility] Radiation Oncology [address] [place] [phone] Sammie Rushing NP Infiltrating ductal carcinoma of left breast ([facility] V24, [facility] V28) (Primary Dx) Discharge Disposition: Home or Self Care 02/16/2025 9:10 AM EDT - 02/16/2025 11:59 PM EDT Hospital Encounter [facility] Radiation Oncology [address] [place] [phone] Discharge Disposition: Home or Self Care 02/15/2025 9:13 AM EDT - 02/15/2025 11:59 PM EDT Hospital Encounter [facility] Radiation Oncology [address] [place] [phone] Discharge Disposition: Home or Self Care 02/14/2025 9:12 AM EDT - 02/14/2025 11:59 PM EDT Hospital Encounter [facility] Radiation Oncology [address] [place] [phone] Discharge Disposition: Home or Self Care 02/11/2025 9:40 AM EDT - 02/11/2025 11:59 PM EDT Hospital Encounter [facility] Radiation Oncology [address] [place] [phone] Amanda Merchant MD Malignant neoplasm of lower-outer quadrant of left breast of female, estrogen receptor positive ([facility] V24, [facility] V28) (Primary Dx) Discharge Disposition: Home or Self Care 02/11/2025 9:31 AM EDT Hospital Encounter [facility] Radiation Oncology [address] [place] [phone] Amanda Merchant MD 02/11/2025 9:08 AM EDT - 02/11/2025 11:59 PM EDT Hospital Encounter [facility] Radiation Oncology [address] [place] [phone] Discharge Disposition: Home or Self Care 02/10/2025 9:26 AM EDT - 02/10/2025 11:59 PM EDT Hospital Encounter [facility] Radiation Oncology [address] [place] [phone] Discharge Disposition: Home or Self Care 02/09/2025 9:28 AM EDT - 02/09/2025 11:59 PM EDT Hospital Encounter [facility] Radiation Oncology [address] [place] [phone] Discharge Disposition: Home or Self Care 02/09/2025 7:29 AM EDT - 02/09/2025 11:59 PM EDT Hospital Encounter [facility] Radiation Oncology [address] [place] [phone] Discharge Disposition: Home or Self Care 02/08/2025 9:18 AM EDT - 02/08/2025 11:59 PM EDT Hospital Encounter [facility] Radiation Oncology [address] [place] [phone] Discharge Disposition: Home or Self Care 02/07/2025 9:24 AM EDT - 02/07/2025 11:59 PM EDT Hospital Encounter [facility] Radiation Oncology [address] [place] [phone] Discharge Disposition: Home or Self Care 02/04/2025 9:29 AM EDT - 02/04/2025 11:59 PM EDT Hospital Encounter [facility] Radiation Oncology [address] [place] [phone] Jose Oliveros MD Infiltrating ductal carcinoma of left breast (CMS/HCC V24, CMS/HCC V28) (Primary Dx) Discharge Disposition: Home or Self Care 02/04/2025 9:13 AM EDT - 02/04/2025 11:59 PM EDT Hospital Encounter [facility] Radiation Oncology [address] [place] [phone] Discharge Disposition: Home or Self Care 02/03/2025 9:08 AM EDT - 02/03/2025 11:59 PM EDT Hospital Encounter [facility] Radiation Oncology [address] [place] [phone] Discharge Disposition: Home or Self Care 02/02/2025 9:16 AM EDT - 02/02/2025 11:59 PM EDT Hospital Encounter [facility] Radiation Oncology [address] [place] [phone] Discharge Disposition: Home or Self Care 02/01/2025 9:19 AM EDT - 02/01/2025 11:59 PM EDT Hospital Encounter [facility] Radiation Oncology [address] [place] [phone] Discharge Disposition: Home or Self Care 01/31/2025 9:20 AM EDT - 01/31/2025 11:59 PM EDT Hospital Encounter [facility] Radiation Oncology [address] [place] [phone] Discharge Disposition: Home or Self Care 01/28/2025 9:13 AM EDT - 01/28/2025 11:59 PM EDT Hospital Encounter [facility] Radiation Oncology [address] [place] [phone] Amanda Merchant MD Infiltrating ductal carcinoma of left breast (CMS/HCC V24, CMS/HCC V28) (Primary Dx) Discharge Disposition: Home or Self Care 01/28/2025 8:49 AM EDT - 01/28/2025 11:59 PM EDT Hospital Encounter [facility] Radiation Oncology [address] [place] [phone] Discharge Disposition: Home or Self Care 01/27/2025 9:04 AM EDT - 01/27/2025 11:59 PM EDT Hospital Encounter [facility] Radiation Oncology [address] [place] [phone] Discharge Disposition: Home or Self Care 01/26/2025 9:10 AM EDT - 01/26/2025 11:59 PM EDT Hospital Encounter [facility] Radiation Oncology [address] [place] [phone] Discharge Disposition: Home or Self Care 01/25/2025 9:05 AM EDT - 01/25/2025 11:59 PM EDT Hospital Encounter [facility] Radiation Oncology [address] [place] [phone] Discharge Disposition: Home or Self Care 01/24/2025 9:08 AM EDT - 01/24/2025 11:59 PM EDT Hospital Encounter [facility] Radiation Oncology [address] [place] [phone] Discharge Disposition: Home or Self Care 01/21/2025 9:32 AM EDT - 01/21/2025 11:59 PM EDT Hospital Encounter [facility] Radiation Oncology [address] [place] [phone] Amanda Merchant MD Primary malignant neoplasm of upper inner quadrant of female breast, left (CMS/HCC V24, CMS/HCC V28) (Primary Dx) Discharge Disposition: Home or Self Care 01/21/2025 9:13 AM EDT - 01/21/2025 11:59 PM EDT Hospital Encounter [facility] Radiation Oncology [address] [place] [phone] Discharge Disposition: Home or Self Care 01/20/2025 9:34 AM EDT - 01/20/2025 11:59 PM EDT Hospital Encounter [facility] Radiation Oncology [address] [place] [phone] Amanda Merchant MD Discharge Disposition: Home or Self Care 01/20/2025 9:22 AM EDT - 01/20/2025 11:59 PM EDT Hospital Encounter [facility] Radiation Oncology [address] [place] [phone] Discharge Disposition: Home or Self Care 01/14/2025 8:23 AM EDT - 01/14/2025 11:59 PM EDT Hospital Encounter [facility] Radiation Oncology [address] [place] [phone] Discharge Disposition: Home or Self Care 01/12/2025 9:56 AM EDT - 01/12/2025 11:59 PM EDT Hospital Encounter [facility] Radiation Oncology [address] [place] [phone] Amanda Merchant MD Malignant neoplasm of upper-outer quadrant of left female breast, unspecified estrogen receptor status (CMS/HCC V24, CMS/HCC V28) (Primary Dx); Breast cancer (CMS/HCC V24, CMS/HCC V28) Discharge Disposition: Home or Self Care 01/12/2025 8:42 AM EDT - 01/12/2025 11:59 PM EDT Hospital Encounter [facility] Radiation Oncology [address] [place] [phone] Infiltrating ductal carcinoma of left breast (CMS/HCC V24, CMS/HCC V28) (Primary Dx) Discharge Disposition: Home or Self Care 12/23/2024 1:30 PM EDT - 12/23/2024 11:59 PM EDT Hospital Encounter [facility] Radiation Oncology [address] [place] [phone] Discharge Disposition: Home or Self Care 12/23/2024 1:24 PM EDT - 12/23/2024 11:59 PM EDT Hospital Encounter [facility] Radiation Oncology [address] [place] [phone] Amanda Merchant MD Breast cancer (CMS/HCC V24, CMS/HCC V28) (Primary Dx); Primary malignant neoplasm of upper inner quadrant of female breast, left ([facility]/HCC V24, CMS/HCC V28) Discharge Disposition: Home or Self Care from Last 3 Months Surgical History Surgery Date Site/Laterality Comments SECTION, LOW TRANSVERSE BREAST BIOPSY Medical History Medical History Date Comments Hypertension Diabetes mellitus (CMS/HCC V24, CMS/HCC V28) Irregular heart beat Breast cancer (CMS/HCC V24, CMS/HCC V28) Heart murmur Family History Medical History [...] Info) Description 03/24/2025 10:00 AM EDT Appointment [facility] Radiation Oncology [address] [place] [phone] Sammie Rushing NP [address] [place] [address] Health Maintenance Due Date Last Done Comments Breast Cancer Screening 1955 Colorectal Cancer Screening: Colonoscopy 1955 Diabetes: Annual GFR (Glomer ular Filtration [...] Screening 06/23/2024 Cholesterol Screening (Lipid Panel) 12/01/2024 Diabetes: Annual Urine Albumin-Creatinine Ratio (uACR) [...] 1,000 cGray [facility] Prescribed Technique VILLEGAS,[employer] [place],LPO [facility] Elapsed Days 5 [facility] Start Date 02/11/2025 [facility] Last Date 02/16/2025 [facility] Prescribed Number of Fractions 4 [facility] 02/16/2025 9:35 AM EDT Physician Radiation Oncology RADIATION ONCTAYLOR [...] 750 cGray [facility] Prescribed Technique V[place]AS,[employer] [place],LPO [facility]IATION ONCOL[facility] Elapsed Days 4 MOSAIQ [...] 500 cGray [facility] Prescribed Technique V[place]AS,[employer] [place],LPO [facility] RADIATION ONCOLOGY Elapsed Days 3 MOS[facility]Q [...] 250 cGray [facility] Prescribed Technique V[place]AS,[employer] [place],LPO [facility] Elapsed Days 0 [facility] Start Date 02/11/2025 [facility] Last Date 02/11/2025 [facility] Prescribed Number of Fractions 4 [facility] 02/11/2025 9:52 AM EDT Physician Radiation Oncology RADIATION ONCOLO GY ORDERABLES Final Result Performing Organization Address City/[facility]/ZIP Co de Phone Number [facility] [...] GY ORDERABLES Final Result Performing Organization Address City/[facility]/ZIP Co de Phone Number [facility] [...] 9:21 AM EDT Physician Radiation Oncology RADIATION ONCTAYLOR [...] AM EDT us Physician Radiation Oncology RADIATION ONCOLO GY ORDERABLES [...] 9:16 AM EDT Physician Radiation Oncology RADIATION ONCOLO [...] [facility] 01/26/2025 9:23 AM EDT Physician Radiation Oncology RADIATION ONCOLO [...] GY ORDERABLES Final Result Performing Organization Address City/State/[facility] Co de Phone Number [facility] from Last 3 Months Insurance [facility] [place] [address] Care Teams Squeegee Finisher Relationship Specialty Start Date End Date Maurice Moralez MD [facility] [address] [place] [address] [address] [place] [address] PCP - General Internal Medicine 11/30/24
== END 2025-03-21 11:15 | disposition home or self-care (01) ==
LOC: HO.ENCR 10:47
PROVIDERS: PCP Internal Medicine; Visit Provider Student in an Organized Health Care Education/Training Program
DX: E04.2 Nontoxic multinodular goiter (principal); E05.90 Thyrotoxicosis, unspecified without thyrotoxic crisis or storm
CPT/HCPCS: 99213

== ENCOUNTER → 2025-03-21 10:46 | Outpatient (BNVA) | payer MEDICARE, SELFPAY | PROVIDERS: PCP Internal Medicine; Visit Provider Student in an Organized Health Care Education/Training Program | DX: E04.2 Nontoxic multinodular goiter (principal); E05.90 Thyrotoxicosis, unspecified without thyrotoxic crisis or storm | CPT/HCPCS: 99212 ==

== ENCOUNTER 2025-04-07 09:47 | Outpatient (AMB) | payer MEDICARE, SELFPAY ==
--- NOTE | 2025-04-07 10:31 | MHC.PC.OV ---
Vital Signs 04/07/25 10:32 Height 5 ft 2 in Weight 221 lb 4 oz BMI 40.5 BP 160/90 H Blood Pressure Location Lt brachial Position Sitting Pulse 82 Pulse Source Pulse Oximeter Temp 97.3 F Temp Source Temporal Artery Scan Pulse Oximetry (%) 98 Oxygen Delivery Method Room Air Intake Visit Reasons: 6 month f/u - see comments Intake Note: Patient is here to follow up on DM, Chronic low back pain, HTN. Grain Cleaner And Transfer Operator Required: No Log Yard Manager: Not Required per policy Accompanied by: Self / Same As Patient Allergies hydrochlorothiazide Allergy (Intermediate, Verified 04/07/25 10:41) did not resolve HTN aspirin Adverse Reaction (Intermediate, Verified 04/07/25 10:41) Gastrointestinal Upset valsartan Adverse Reaction (Intermediate, Verified 04/07/25 10:41) Hypertension Tobacco use date assessed: 04/07/25 Fall risk assessment: No Falls in past year Last assessed Fall Risk: 04/07/25 Dental Screening Dental Screen Date: 06/30/24 [facility] Medical History Palpitations Mass of right chest wall Subclinical hyperthyroidism Invasive ductal carcinoma of breast Morbid obesity Left breast mass Hyperparathyroidism Multiple thyroid nodules Positive colorectal cancer screening using Cologuard test (~04/30/24) Right sided sciatica Polyarthralgia HTN (hypertension) Type 2 diabetes mellitus Surgical History History of lumpectomy of left breast (11/10/24) History of biopsy History of colonoscopy (~06/23/20) History of tooth extraction History of toe surgery History of delivery Family History Mother Diabetes HTN (hypertension) Father Cardiomegaly Substance use disorder Maternal Grandmother Uterine cancer Maternal Aunt Colon cancer Social History Household Members: Family and Children Housing: House Are you a primary daycare assistant to a significant other at home: No Do you presently have visiting nurse or other home services: No Alcohol intake: never Patient Tobacco Use Status: Former Tobacco user Tobacco use type: Cigarette Years Smoked: 15 e-Cigarette/Vaping Use: Never Used Second Hand Smoke Exposure: Yes Advance Directives Date on File: 08/18/24 service: No Current occupational status: retired Cognitive needs: Yes (cane) Hearing needs: No Vision needs: Yes (glasses) Questionnaire PHQ-9 Over the last 2 weeks, how often have you been bothered by any of the following problems? 1. Little interest or pleasure in doing things: not at all 2. Feeling down, depressed, or hopeless: not at all 3. Trouble falling or staying asleep, or sleeping too much: not at all 4. Feeling tired or having little energy: several days 5. Poor appetite or overeating: not at all 6. Feeling bad about yourself - or that you are a failure or have let yourself or your family down: not at all 7. Trouble concentrating on things, such as reading the newspaper or watching television: not at all 8. Moving or speaking so slowly that other people could have noticed. Or the opposite - being so fidgety or restless that you have been moving around a lot more than usual: not at all 9. Thoughts that you would be better off or of hurting yourself in some way: not at all Total score: 1 Depression Screening Interpretation: Positive Depression Screening Done: Yes Source: Developed by Drs. Jesse Cui, Beatrice Casas, Les Bhatia and colleagues, with an educational harlan from [employer]. Thrive Questionnaire Date Thrive assessed: 04/01/25 I am a: Patient What is your living situation today?: I have a steady place to live Within the past 12 months, did the food you bought not last and you didn't have the money to get more?: Never true Within the past 12 months, did you worry whether your food would run out before you got money to buy more?: Never true Do you have trouble paying for medicines?: No Do you have trouble getting transportation to medical appointments?: No Do you have trouble paying your heating and electricity bill?: No Do you have trouble taking care of your child, family member or friend?: No Do you have trouble with day-to-day activities such as bathing, preparing meals, shopping, managing finances, etc.?: No Are you currently unemployed and looking for a job?: No Are you interested in more education?: No Please select the resources that you would like help with: None Currently or been in a relationship where the following occur: No concerns reported THRIVE Score: 0 AUDIT C Alcohol Use Questionnaire (AUDIT-C) 1. How often do you have a drink containing alcohol?: Never Total Score: 0 NALINI-7 AMB Questionnaire NALINI-7 Date NALINI - 7 assessed: 06/30/24 Feeling nervous, anxious, or on edge: 0 = Not at all Not being able to stop or control worryin = Not at all Worrying too much about different things: 0 = Not at all Trouble relaxin = Not at all Being so restless that it is hard to sit still: 0 = Not at all Becoming easily annoyed or irritable: 0 = Not at all Feeling afraid as if something awful might happen: 0 = Not at all Total NALINI-7 score (0-4 normal; 5-9 mild; 10-14 moderate; 15-21 severe): 0 Source: Developed by Drs. Jesse Cui, Beatrice Casas, Les Bhatia and colleagues, with an educational harlan from [employer]. Physical exam (Primary Care) Vital Signs: Last Vital Signs Temp 97.3 F 04/07/25 10:32 Pulse 82 04/07/25 10:32 BP 160/90 H 04/07/25 10:32 Pulse Ox 98 04/07/25 10:32 Oxygen Delivery Method Room Air 04/07/25 10:32 BMI result Body Mass Index 40.5 Tobacco/Smoking Status: Tobacco use Status Tobacco use date assessed 04/07/25 04/07/25 10:43 Patient Tobacco Use Status Former Tobacco user 04/07/25 10:43 Tobacco use type Cigarette 04/07/25 10:43 e-Cigarette/Vaping Use Never Used 04/07/25 10:43 PHQ-9: PHQ-9 Score PHQ-9: Total score 1 04/07/25 10:43 Depression Screening Interpretation: Positive Thrive Assessment: Date of Thrive Assessment Date Thrive assessed 04/01/25 04/07/25 10:43 Currently or been in a relationship where the following occur: No concerns reported Results AMB Hemoglobin A1c AMB Hemoglobin A1c 8.2 % Last Edit by GRAYSON Monteiro on 04/07/25 10:44 Results Reviewed Results Reviewed: Laboratory Last Values Hgb A1c (Clinic) 8.2 % (4.0-6.0) H 04/07/25 10:31 Coding Level of Care Code Est Pt Level 4 (94695) Complex EM visit Add On G2211 Diagnoses HTN (hypertension) I10 Assessment & Plan Assessment & Plan (1) HTN (hypertension): Comment: elevated at last PCP appt-is checking it at home-119/84 on 11/04/24 Code(s): I10 - Essential (primary) hypertension Category: Medical Plan: History of Present Illness - The patient is a 69-year-old female presenting with management of thyroid nodule, breast cancer follow-up, and diabetes management. - Thyroid nodule: The lab coordinator recommended surgery to assess for malignancy, but the patient is reluctant due to low suspicion of cancer and her history of breast cancer. - Breast cancer: The patient completed radiation therapy and is due for an oncologist follow-up. - Diabetes mellitus: The patient experiences elevated blood glucose levels, with morning readings between 80-110 mg/dL and postprandial levels sometimes over 200 mg/dL. She is on insulin therapy, administering 18 units of Lispro and 70 units of another insulin. - Preventative care: A positive Cologuard test prompted a scheduled colonoscopy, though the patient notes bleeding that may have influenced the result. Social History Review of Systems - Endocrine: Reports thyroid nodule, denies symptoms of hyperthyroidism or hypothyroidism. - Hematologic/Lymphatic: Denies new lumps or lymphadenopathy. - Gastrointestinal: Reports positive Cologuard test, denies abdominal pain or changes in bowel habits. - Metabolic: Reports elevated blood glucose levels, denies symptoms of hypoglycemia. Physical Exam General: Cooperative and healthy appearing Nutritional Appearance: Well nourished Orientation/consciousness: Patient oriented x3 Limitations: No limitations Head: Normal to inspection General: Appearance normal, both eyes and all related structures Neck: Normal visual inspection Chest: Normal palpation of entire chest wall Respiratory: Normal respiratory effort Neurology: Patient oriented x3 Results - Labs: Blood work scheduled with oncologist and primary care physician. - Tests and Diagnostics: Positive Cologuard test, thyroid biopsy and nuclear scan performed. Plan - Follow up with lab coordinator for thyroid nodule management and evaluate surgical options. - Continue breast cancer follow-up with oncologist and complete blood work as advised. - Adjust insulin dosage to manage hyperglycemia, increasing Lispro to 20 units as needed. - Undergo colonoscopy to assess the positive Cologuard test result. Discussion Notes I discussed with the patient the management of her thyroid nodule, including the potential need for surgery to rule out malignancy. We reviewed her breast cancer follow-up plan with the oncologist and the importance of completing blood work. I advised her on adjusting her insulin regimen to better control her blood glucose levels. We also talked about the need for a colonoscopy following her positive Cologuard test to ensure accurate diagnosis and management. Patient Instructions - Follow up with your lab coordinator to discuss thyroid nodule management. - Continue seeing your oncologist for breast cancer follow-up and complete any blood work they recommend. - Adjust your insulin dosage as discussed to manage your blood sugar levels. - Attend your scheduled colonoscopy to investigate the positive Cologuard result. Orders: Orders Complete Blood Count no Diff Today I10 - Essential (primary) hypertension Basic Metabolic Panel Today I10 - Essential (primary) hypertension Lipid Panel Today I10 - Essential (primary) hypertension Hemoglobin A1c Today I10 - Essential (primary) hypertension UA and rflx microscopic Today I10 - Essential (primary) hypertension AMB Hemoglobin A1c Today E11.9 - Type 2 diabetes mellitus without complications Liver Panel Today I10 - Essential (primary) hypertension Thyroid Stimulating Hormone Today I10 - Essential (primary) hypertension Microalbumin, Random (w Creat) Today I10 - Essential (primary) hypertension
[2025-04-07 10:32] VITALS: BP 160/90; PULSE 82; TEMP 36.3; O2SAT 98; BMI 40.5
--- OUTSIDE RECORDS SUMMARY | 2025-04-07 11:26 | XMS_ITS | Encounter Summary ---
Author Organization [facility] Address [address] [place] [address] Care Team Providers Care Desktop Manager Name Role Phone Unavailable Primary Care Provider Unavailabl e Encounter Details Date Type Department Care Team (Late st Contact Info) Description 03/29/2025 Scanned Document [facility] [address] [place] [id number] Monik Brown MD [address] [place] [address] Social History Tobacco Use Types Packs/Day Years Used Date Smoking Tobacco: Never Assessed Comments Unknown Sex and Gender Information Value Date Recorded Sex Assigned at Female 03/30/2025 10:27 AM EDT Legal Sex Female 3:12 PM EDT Gender Identity Female 03/30/2025 10:27 AM EDT Sexual Orientation Heterosexual (straight) 03/30 10:27 AM EDT documented as of this encounter Plan of Treatment Not on file documented as of this encounter Visit Diagnoses Not on filedocumented in this encounter
--- OUTSIDE RECORDS SUMMARY | 2025-04-07 11:26 | XMS_ITS | Encounter Summary ---
Author Organization [facility] Address [address] [place] [address] Care Team Providers Care Riverboat Master Name Role Phone Unavailable Primary Care Provider Unavailabl e Encounter Details Date Type Department Care Team (Late st Contact Info) Description 03/29/2025 Orders Only [facility] [place] [address] [place] [phone] Monik Brown MD [address] [place] [address] Social History Tobacco Use Types Packs/Day Years [...] on file documented as of this encounter Procedures Procedure Name Priority Date/Time Associated Diagnosis Comments ULTRASOUND EXTERNAL RESULT Routine 07/28/2024 9:05 AM EST documented in this encounter Results * Ultrasound External Result (07/28/2024 9:05 AM EST) Anatomical Region Laterality Modality Ultrasound us Monik Brown MD IMG US ORDERABLES Final Result documented in this encounter Visit Diagnoses Not on filedocumented in this encounter
--- OUTSIDE RECORDS SUMMARY | 2025-04-07 11:26 | XMS_ITS | Patient Health Record ---
Author Organization [facility] Address [address] [place] [address] Care Team Providers Care Radiation Oncology Nurse Name Role Phone Robert Franco Primary Care [...] Insured Coverage Start Date Coverage End Date [facility] [address] [address] [place] [address] [id number] Kathy Cowan Self - patient is the insured Medical (General) History Medical History History ICD Code DM hypertension irregiular heart beat Surgical History Surgery Date(Month/Year) c section Hospitalization History Reason Date(Month/Year) as above
--- OUTSIDE RECORDS SUMMARY | 2025-04-07 11:26 | XMS_ITS ---
Author Organization [facility] Address [address] [place] [address] Phone Care Team Providers Care Accounts Payable Clerk Name Role Phone Maurice Moralez MD Primary Care Provider +1- [phone] Active Problems Problem Noted Date Diagnosed Date [...]
--- OUTSIDE RECORDS SUMMARY | 2025-04-07 11:26 | XMS_ITS | Clinical Summary ---
Author Organization [facility] Address [address] [place] [address] Phone Care Team Providers Care Chicken Vaccinator Name Role Phone Maurice Moralez MD Primary Care Provider +1- [phone] Allergies Active Allergy Reactions Criticality Noted Date [...] Problem Noted Date Diagnosed Date Breast cancer ([facility] V24, CMS/HCC V28) 025 Hypertension 12/01/2024 Hyperparathyroidism ([facility] V24) 12/01/2024 Invasive ductal carcinoma of breast (CMS/HCC V24, CMS/[facility] V28) 12/01/2024 Left breast mass 12/01/2024 Mass of right chest wall 12/01/2024 Morbid obesity (CMS/HCC V24, CMS/[facility] V28) 2024 Multiple thyroid nodules 12/01/2024 Palpitations 12/01/2024 Polyarthralgia 12/01/2024 Right sided sciatica 12/01/2024 Type 2 diabetes mellitus ([facility] V24, [facility] V 28) 12/01/2024 Encounters Date Type Department Care Team Description 03/24/2025 9:51 AM EDT - 03/24/2025 11:59 PM EDT Hospital Encounter [facility] [address] [place] [phone] Sammie Rushing, SHERRILL Malignant neoplasm of lower-outer quadrant of left breast of female, estrogen receptor positive ([facility] V24, [facility] V28) (Primary Dx) Discharge Disposition: Home or Self Care 02/16/2025 9:35 AM EDT - 02/16/2025 11:59 PM EDT Hospital Encounter [facility] [address] [place] [phone] Sammie Rushing NP Infiltrating ductal carcinoma of left breast ([facility] V24, [facility] V28) (Primary Dx) Discharge Disposition: Home or Self Care 02/16/2025 9:10 AM EDT - 02/16/2025 11:59 PM EDT Hospital Encounter [facility] [address] [place] [phone] Discharge Disposition: Home or Self Care 02/15/2025 9:13 AM EDT - 02/15/2025 11:59 PM EDT Hospital Encounter [facility] [address] [place] [phone] Discharge Disposition: Home or Self Care 02/14/2025 9:12 AM EDT - 02/14/2025 11:59 PM EDT Hospital Encounter [facility] [address] [place] [phone] Discharge Disposition: Home or Self Care 02/11/2025 9:40 AM EDT - 02/11/2025 11:59 PM EDT Hospital Encounter [facility] [address] [place] [phone] Amanda Merchant MD Malignant neoplasm of lower-outer quadrant of left breast of female, estrogen receptor positive (CMS/HCC V24, CMS/HCC V28) (Primary Dx) Discharge Disposition: Home or Self Care 02/11/2025 9:31 AM EDT - 02/11/2025 11:59 PM EDT Hospital Encounter [facility] [address] [place] [phone] Amanda Merchant MD Discharge Disposition: Home or Self Care 02/11/2025 9:08 AM EDT - 02/11/2025 11:59 PM EDT Hospital Encounter [facility] [address] [place] [phone] Discharge Disposition: Home or Self Care 02/10/2025 9:26 AM EDT - 02/10/2025 11:59 PM EDT Hospital Encounter [facility] [address] [place] [phone] Discharge Disposition: Home or Self Care 02/09/2025 9:28 AM EDT - 02/09/2025 11:59 PM EDT Hospital Encounter [facility] [address] [place] [phone] Discharge Disposition: Home or Self Care 02/09/2025 7:29 AM EDT - 02/09/2025 11:59 PM EDT Hospital Encounter [facility] [address] [place] [phone] Discharge Disposition: Home or Self Care 02/08/2025 9:18 AM EDT - 02/08/2025 11:59 PM EDT Hospital Encounter [facility] [address] [place] [phone] Discharge Disposition: Home or Self Care 02/07/2025 9:24 AM EDT - 02/07/2025 11:59 PM EDT Hospital Encounter [facility] [address] [place] [phone] Discharge Disposition: Home or Self Care 02/04/2025 9:29 AM EDT - 02/04/2025 11:59 PM EDT Hospital Encounter [facility] [address] [place] [phone] Jose Oliveros MD Infiltrating ductal carcinoma of left breast (CMS/HCC V24, CMS/HCC V28) (Primary Dx) Discharge Disposition: Home or Self Care 02/04/2025 9:13 AM EDT - 02/04/2025 11:59 PM EDT Hospital Encounter [facility] [address] [place] [phone] Discharge Disposition: Home or Self Care 02/03/2025 9:08 AM EDT - 02/03/2025 11:59 PM EDT Hospital Encounter [facility] [address] [place] [phone] Discharge Disposition: Home or Self Care 02/02/2025 9:16 AM EDT - 02/02/2025 11:59 PM EDT Hospital Encounter [facility] [address] [place] [phone] Discharge Disposition: Home or Self Care 02/01/2025 9:19 AM EDT - 02/01/2025 11:59 PM EDT Hospital Encounter [facility] [address] [place] [phone] Discharge Disposition: Home or Self Care 01/31/2025 9:20 AM EDT - 01/31/2025 11:59 PM EDT Hospital Encounter [facility] [address] [place] [phone] Discharge Disposition: Home or Self Care 01/28/2025 9:13 AM EDT - 01/28/2025 11:59 PM EDT Hospital Encounter [facility] [address] [place] [phone] Amanda Merchant MD Infiltrating ductal carcinoma of left breast (CMS/HCC V24, CMS/HCC V28) (Primary Dx) Discharge Disposition: Home or Self Care 01/28/2025 8:49 AM EDT - 01/28/2025 11:59 PM EDT Hospital Encounter [facility] [address] [place] [phone] Discharge Disposition: Home or Self Care 01/27/2025 9:04 AM EDT - 01/27/2025 11:59 PM EDT Hospital Encounter [facility] [address] [place] [phone] Discharge Disposition: Home or Self Care 01/26/2025 9:10 AM EDT - 01/26/2025 11:59 PM EDT Hospital Encounter [facility] [address] [place] [phone] Discharge Disposition: Home or Self Care 01/25/2025 9:05 AM EDT - 01/25/2025 11:59 PM EDT Hospital Encounter [facility] [address] [place] [phone] Discharge Disposition: Home or Self Care 01/24/2025 9:08 AM EDT - 01/24/2025 11:59 PM EDT Hospital Encounter [facility] [address] [place] [phone] Discharge Disposition: Home or Self Care 01/21/2025 9:32 AM EDT - 01/21/2025 11:59 PM EDT Hospital Encounter [facility] [address] [place] [phone] Amanda Merchant MD Primary malignant neoplasm of upper inner quadrant of female breast, left (CMS/HCC V24, CMS/HCC V28) (Primary Dx) Discharge Disposition: Home or Self Care 01/21/2025 9:13 AM EDT - 01/21/2025 11:59 PM EDT Hospital Encounter [facility] [address] [place] [phone] Discharge Disposition: Home or Self Care 01/20/2025 9:34 AM EDT - 01/20/2025 11:59 PM EDT Hospital Encounter [facility] [address] [place] [phone] Amanda Merchant MD Discharge Disposition: Home or Self Care 01/20/2025 9:22 AM EDT - 01/20/2025 11:59 PM EDT Hospital Encounter [facility] [address] [place] [phone] Discharge Disposition: Home or Self Care 01/14/2025 8:23 AM EDT - 01/14/2025 11:59 PM EDT Hospital Encounter [facility] [address] [place] [phone] Discharge Disposition: Home or Self Care 01/12/2025 9:56 AM EDT - 01/12/2025 11:59 PM EDT Hospital Encounter [facility] [address] [place] [phone] Amanda Merchant MD Malignant neoplasm of upper-outer quadrant of left female breast, unspecified estrogen receptor status ([facility] V24, [facility] V28) (Primary Dx); Breast cancer ([facility] V24, CMS/[facility] V28) Discharge Disposition: Home or Self Care 01/12/2025 8:42 AM EDT - 01/12/2025 11:59 PM EDT Hospital Encounter [facility] [address] [place] [phone] Infiltrating ductal carcinoma of left breast ([facility]/HCC V24, CMS/HCC V28) (Primary Dx) Discharge Disposition: Home or Self Care from Last 3 Months Surgical History Surgery Date Site/Laterality Comments SECTION, LOW TRANSVERSE BREAST BIOPSY Medical History Medical History Date Comments Hypertension Diabetes mellitus (CMS/[facility] V24, [facility]/HCC V28) Irregular heart beat Breast cancer (CMS/[facility] V24, CMS/[facility] V28) Heart murmur Family History Medical History [...] Sign Reading Time Taken Comments Blood Pressure 128/82 03/24/2025 10:06 AM EDT Pulse 77 03/24/2025 10:06 AM EDT Temperature 36.1 C (97 F) 03/24/2025 10:06 AM EDT Respiratory Rate 16 03/24/2025 10:06 AM EDT Oxygen Saturation 99% 03/24/2025 10:06 AM EDT Inhaled Oxygen Concentration - - Weight 102 kg (224 lb) 03/24/2025 10:06 AM EDT Height 157.5 cm (5' 2 ) 03/24/2025 10:06 AM EDT Body Mass Index 40.97 03/24/2025 10:06 AM EDT Plan of Treatment Health Maintenance Due Date [...] 1,000 cGray [facility] Prescribed Technique VILLEGAS,NAMIBIAN,LPO [facility] RADIATION ONCOLOGY Elapsed Days 5 MOSAIQ [...] 750 cGray [facility]IATION ONCOLOGY Prescribed Technique VILLEGAS,NAMIBIAN,LPO [facility] RADIATION ONCOLOGY Elapsed Days 4 [facility] Start Date 02/11/2025 [facility]COL[facility] Last Date 02/15/2025 [facility] Prescribed Number of Fractions 4 [facility]COLOG[facility] 02/15/2025 9:27 AM EDT Physician Radiation Oncology RADIATION ONCOLO GY ORDERABLES Final Result Performing Organization Address City/[facility]/ZIP Co de Phone Number MOS[facility] RADIATION [...] 500 cGray [facility]IATION ONCOL[facility] Prescribed Technique VILLEGAS,NAMIBIAN,LPO [facility] RADIATION ONCOLOGY Elapsed Days 3 MOSAIQ [...] 250 cGray [facility] RADIATION ONCOLOGY Prescribed Technique VILLEGAS,NAMIBIAN,LPO MOS[facility] RADIATION ONCOLOGY Elapsed Days 0 [facility]IATION ONCOLOGY Start Date 02/11/2025 [facility] RADIATION ONCOLOGY Last Date 02/11/2025 [facility]IATION ONCOLOGY Prescribed Number of Fractions 4 [facility] RADIATION ONCOLOGY 02/11/2025 9:52 AM EDT Physician Radiation Oncology RADIATION ONCTAYLOR [...] 9:38 AM EDT Physician Radiation Oncology RADIATION ONCTAYLOR [...] 9:29 AM EDT Physician Radiation Oncology RADIATION ONCOLO [...] 9:42 AM EDT Physician Radiation Oncology RADIATION ONCOLO [...] [facility]COL[facility] 01/28/2025 9:12 AM EDT Physician Radiation Oncology RADIATION ONCTAYLOR [...] 9:16 AM EDT Physician Radiation Oncology RADIATION ONCTAYLOR [...] 9:23 AM EDT Physician Radiation Oncology RADIATION ONCTAYLOR [...] 9:17 AM EDT Physician Radiation Oncology RADIATION ONCOLO [...] [facility]IATION [facility]COLOG[facility] 01/20/2025 9:36 AM EDT us Physician Radiation Oncology RADIATION ONCOLO GY ORDERABLES Final Result Performing Organization Address City/State/[facility] Co de Phone Number [facility] from Last 3 Months Insurance [employer] Care Teams Chicken Vaccinator Relationship Specialty Start Date End Date Maurice Moralez MD [facility] [address] [facility] [place] [address] PCP - General Internal Medicine 11/30/24
--- OUTSIDE RECORDS SUMMARY | 2025-04-07 11:27 | XMS_ITS | Clinical Summary ---
Author Organization [facility] Address [address] [place] [address] Care Team Providers Care Automotive Manager Name Role Phone Unavailable Primary Care Provider Unavailabl e Encounters Date Type Department Care Team Description 03/31/2025 Telephone [facility] [address] [place] [phone] Branden Martínez MD 03/29/2025 Scanned Document [facility] [address] [place] [phone] Monik Brown MD 03/29/2025 Orders Only [facility] [address] [place] [phone] Monik Brown MD 03/29/2025 Transcribe Orders [facility] [address] [place] [phone] Monik Brown MD Nontoxic multinodular goiter (Primary Dx) from Last 3 Months Social History Tobacco Use Types Packs/Day Years Used Date Smoking Tobacco: Never Assessed Comments Unknown Sex and Gender Information Value Date Recorded Sex Assigned at Female 03/30/2025 10:27 AM EDT Legal Sex Female 3:12 PM EDT Gender Identity Female 03/30/2025 10:27 AM EDT Sexual Orientation Heterosexual (straight) 03/30 10:27 AM EDT Plan of Treatment Health Maintenance Due Date Last Done Comments Advance Care Planning 1955 Hepatitis C Virus Screening 1955 DTaP/Tdap/Td Vaccines (1 - Tdap) 11/09/1974 Pneumococcal Vaccines 50+ (1 of 1 - PCV) 11/09/2005 Zoster (Shingles) Vaccine (1 of 2) 11/09/2005 COVID-19 Vaccine (2023-2 5 season) 2025 RSV Vaccine 50 years and old er and Patients (1 - 1-dose 75+ series) 11/09/2030 Hepatitis B Vaccines Aged Out No long er eligible based on patient's age to complete this topic
== END 2025-04-07 10:58 | disposition home or self-care (01) ==
LOC: HO.HMCH 09:48
PROVIDERS: PCP Internal Medicine; Visit Provider Internal Medicine
DX: E11.9 Type 2 diabetes mellitus without complications (principal); I10 Essential (primary) hypertension

== ENCOUNTER → 2025-04-07 09:47 | Outpatient (BNVA) | payer MEDICARE, SELFPAY | PROVIDERS: PCP Internal Medicine; Visit Provider Internal Medicine | DX: E11.9 Type 2 diabetes mellitus without complications (principal); I10 Essential (primary) hypertension | CPT/HCPCS: 83036; 96127; 99212 ==

== ENCOUNTER → 2025-04-11 09:43 | Outpatient (BNV) | payer MEDICARE, SELFPAY | PROVIDERS: PCP Internal Medicine; Visit Provider Radiology Diagnostic Radiology | DX: M47.815 Spondylosis without myelopathy or radiculopathy, thoracolumbar region (principal); E27.9 Disorder of adrenal gland, unspecified | CPT/HCPCS: 72148 ==

== ENCOUNTER 2025-04-11 09:44 | Outpatient (REF) | payer MEDICARE, SELFPAY ==
--- NOTE | ~2025-04-11 | MR_ITS ---
EXAMINATION: MR LUMBAR SPINE WITHOUT CONTRAST CLINICAL INFORMATION: M [age]. Low back pain, unspecified. COMPARISON: None available. TECHNIQUE: MRI of the lumbar spine was obtained using routine sequences without contrast. FINDINGS: Last rib-bearing vertebra labeled T12. There is a focal intrinsic hyperintense T1 bone lesion in the superior endplate of L2 likely intraosseous hemangioma. Multilevel disc desiccation. 1 mm retrolisthesis, L3-4 and likely L2-3 on a degenerative basis. No bone marrow STIR signal abnormality. Buckling deformity in the dorsal aspect of the thecal sac secondary to ligamentum flavum hypertrophy at T11-T12. Conus medullaris ends at pedicle of L1 with normal signal. There is a 10 mm isointense to hypointense T2 nodular lesion left adrenal gland. T12-L1: No disc herniation. No neuroforamina stenosis. L1-2: Bilateral facet joint hypertrophy. No central spinal canal or neuroforamina stenosis. L2-3: Broad-based disc bulging. Facet joint and ligamentum flavum hypertrophy. Reduced AP diameter thecal sac. No neuroforamina stenosis. L3-4: Broad-based disc bulging. Facet joint and ligamentum flavum hypertrophy. No compression upon neural elements. L4-5: Broad-based disc bulging. Facet joint and ligamentum flavum hypertrophy. Reduced AP diameter thecal sac and neuroforamina likely encroaching the neural elements. L5-S1: Broad-based disc bulging. Facet joint hypertrophy. No central spinal canal or neuroforamina stenosis. No prevertebral compartment hematoma, mass or fluid collections. MR/MR lumbar spine wo con IMPRESSION: Multilevel thoracolumbar spondylosis pronounced at L4-5 likely encroaching the neural elements. 10 mm nodule, left adrenal gland. Statistically may represent adenoma. Electronically signed by: Christophe Chaudhry MD 04/11/2025 11:02 AM EDT
== END 2025-04-11 09:45 | disposition home or self-care (01) ==
LOC: HO.MRI 09:44
PROVIDERS: PCP Internal Medicine; Visit Provider Physical Medicine & Rehabilitation
DX: M54.50 Low back pain, unspecified (principal); G89.29 Other chronic pain; M48.061 Spinal stenosis, lumbar region without neurogenic claudication
CPT/HCPCS: 72148

== ENCOUNTER 2025-04-19 08:42 | Outpatient (REF) | payer MEDICARE, SELFPAY ==
[2025-04-19 09:14] LABS: Hematocrit 37.4 % (37.0-47.0); Hemoglobin 11.8 g/dl (12.0-16.0); Mean Corpuscular HGB Conc 31.6 g/dl (31.0-35.0); Mean Corpuscular Hemoglobin 25.2 pg (27.0-33.0); Mean Corpuscular Volume 79.9 fL (80.0-98.0); NRBC Abs Auto 0.000 X10*3/uL (0.0-0.012); NRBC Pct Auto 0.0 /100WBC (0.0-0.2); Platelet Count 212 X10*3/uL (160-400); Red Blood Count 4.68 X10*6/uL (4.20-5.50); White Blood Count 8.1 X10*3/uL (4.8-10.8)
[2025-04-19 09:24] LABS: Appearance Urine Cloudy; Glucose Urine UA Negative (Negative); PH 5.5 (5.0-9.0); Specific Gravity - Urine 1.025 (1.005-1.025); UMIC TRIGGER UA YES
--- OUTSIDE RECORDS SUMMARY | 2025-04-19 09:24 | XMS_ITS | Clinical Summary ---
Author Organization [facility] Address [address] [place] [address] Phone Care Team Providers Care Broadcast Program Director Name Role Phone Maurice Moralez MD Primary Care Provider [phone]- [phone] Allergies Active Allergy Reactions Criticality Noted Date [...] Problem Noted Date Diagnosed Date Breast cancer ([facility] V24, CMS/HCC V28) 025 Hypertension 12/01/2024 Hyperparathyroidism ([facility] V24) 12/01/2024 Invasive ductal carcinoma of breast (CMS/HCC V24, CMS/[facility] V28) 12/01/2024 Left breast mass 12/01/2024 Mass of right chest wall 12/01/2024 Morbid obesity (CMS/HCC V24, CMS/[facility] V28) 2024 Multiple thyroid nodules 12/01/2024 Palpitations 12/01/2024 Polyarthralgia 12/01/2024 Right sided sciatica 12/01/2024 Type 2 diabetes mellitus ([facility] V24, [facility] V 28) 12/01/2024 Encounters Date Type Department Care Team Description 03/24/2025 9:51 AM EDT - 03/24/2025 11:59 PM EDT Hospital Encounter [facility] Radiation Oncology [address] [place] [phone] Sammie Rushing, SHERRILL Malignant neoplasm of lower-outer quadrant of left breast of female, estrogen receptor positive ([facility] V24, [facility] V28) (Primary Dx) Discharge Disposition: Home or Self Care 02/16/2025 9:35 AM EDT - 02/16/2025 11:59 PM EDT Hospital Encounter [facility] Radiation Oncology [address] [place] [phone] Sammie Rushing NP Infiltrating ductal carcinoma of left breast ([facility] V24, [facility] V28) (Primary Dx) Discharge Disposition: Home or Self Care 02/16/2025 9:10 AM EDT - 02/16/2025 11:59 PM EDT Hospital Encounter [facility] Radiation Oncology [address] [place] [phone] Discharge Disposition: Home or Self Care 02/15/2025 9:13 AM EDT - 02/15/2025 11:59 PM EDT Hospital Encounter [facility] Radiation Oncology [address] [place] [phone] Discharge Disposition: Home or Self Care 02/14/2025 9:12 AM EDT - 02/14/2025 11:59 PM EDT Hospital Encounter [facility]iation Oncology [address] [place] [phone] Discharge Disposition: Home or Self Care 02/11/2025 9:40 AM EDT - 02/11/2025 11:59 PM EDT Hospital Encounter [facility]iation Oncology [address] [place] [phone] Amanda Merchant MD Malignant neoplasm of lower-outer quadrant of left breast of female, estrogen receptor positive (CMS/HCC V24, CMS/HCC V28) (Primary Dx) Discharge Disposition: Home or Self Care 02/11/2025 9:31 AM EDT - 02/11/2025 11:59 PM EDT Hospital Encounter [facility] Radiation Oncology [address] [place] [phone] Amanda Merchant MD Discharge Disposition: Home or Self Care 02/11/2025 9:08 AM EDT - 02/11/2025 11:59 PM EDT Hospital Encounter [facility] Radiation Oncology [address] [place] [phone] Discharge Disposition: Home or Self Care 02/10/2025 9:26 AM EDT - 02/10/2025 11:59 PM EDT Hospital Encounter [facility]iation Oncology [address] [place] [phone] Discharge Disposition: Home or Self Care 02/09/2025 9:28 AM EDT - 02/09/2025 11:59 PM EDT Hospital Encounter [facility]iation Oncology [address] [place] [phone] Discharge Disposition: Home or Self Care 02/09/2025 7:29 AM EDT - 02/09/2025 11:59 PM EDT Hospital Encounter [facility]iation Oncology [address] [place] [phone] Discharge Disposition: Home or Self Care 02/08/2025 9:18 AM EDT - 02/08/2025 11:59 PM EDT Hospital Encounter [facility]iation Oncology [address] [place] [phone] Discharge Disposition: Home or Self Care 02/07/2025 9:24 AM EDT - 02/07/2025 11:59 PM EDT Hospital Encounter [facility]iation Oncology [address] [place] [phone] Discharge Disposition: Home or Self Care 02/04/2025 9:29 AM EDT - 02/04/2025 11:59 PM EDT Hospital Encounter [facility]iation Oncology [address] [place] [phone] Jose Oliveros MD Infiltrating ductal carcinoma of left breast (CMS/HCC V24, CMS/HCC V28) (Primary Dx) Discharge Disposition: Home or Self Care 02/04/2025 9:13 AM EDT - 02/04/2025 11:59 PM EDT Hospital Encounter [facility] Radiation Oncology [address] [place] [phone] Discharge Disposition: Home or Self Care 02/03/2025 9:08 AM EDT - 02/03/2025 11:59 PM EDT Hospital Encounter [facility]iation Oncology [address] [place] [phone] Discharge Disposition: Home or Self Care 02/02/2025 9:16 AM EDT - 02/02/2025 11:59 PM EDT Hospital Encounter [facility]iation Oncology [address] [place] [phone] Discharge Disposition: Home or Self Care 02/01/2025 9:19 AM EDT - 02/01/2025 11:59 PM EDT Hospital Encounter [facility]iation Oncology [address] [place] [phone] Discharge Disposition: Home or Self Care 01/31/2025 9:20 AM EDT - 01/31/2025 11:59 PM EDT Hospital Encounter [facility]iation Oncology [address] [place] [phone] Discharge Disposition: Home or Self Care 01/28/2025 9:13 AM EDT - 01/28/2025 11:59 PM EDT Hospital Encounter [facility] Radiation Oncology [address] [place] [phone] Amanda Merchant MD Infiltrating ductal carcinoma of left breast (CMS/HCC V24, CMS/HCC V28) (Primary Dx) Discharge Disposition: Home or Self Care 01/28/2025 8:49 AM EDT - 01/28/2025 11:59 PM EDT Hospital Encounter [facility]iation Oncology [address] [place] [phone] Discharge Disposition: Home or Self Care 01/27/2025 9:04 AM EDT - 01/27/2025 11:59 PM EDT Hospital Encounter [facility]iation Oncology [address] [place] [phone] Discharge Disposition: Home or Self Care 01/26/2025 9:10 AM EDT - 01/26/2025 11:59 PM EDT Hospital Encounter [facility]iation Oncology [address] [place] [phone] Discharge Disposition: Home or Self Care 01/25/2025 9:05 AM EDT - 01/25/2025 11:59 PM EDT Hospital Encounter [facility]iation Oncology [address] [place] [phone] Discharge Disposition: Home or Self Care 01/24/2025 9:08 AM EDT - 01/24/2025 11:59 PM EDT Hospital Encounter [facility]iation Oncology [address] [place] [phone] Discharge Disposition: Home or Self Care 01/21/2025 9:32 AM EDT - 01/21/2025 11:59 PM EDT Hospital Encounter [facility]iation Oncology [address] [place] [phone] Amanda Merchant MD Primary malignant neoplasm of upper inner quadrant of female breast, left (CMS/HCC V24, CMS/HCC V28) (Primary Dx) Discharge Disposition: Home or Self Care 01/21/2025 9:13 AM EDT - 01/21/2025 11:59 PM EDT Hospital Encounter [facility] Radiation Oncology [address] [place] [phone] Discharge Disposition: Home or Self Care 01/20/2025 9:34 AM EDT - 01/20/2025 11:59 PM EDT Hospital Encounter [facility]iation Oncology [address] [place] [phone] Amanda Merchant MD Discharge Disposition: Home or Self Care 01/20/2025 9:22 AM EDT - 01/20/2025 11:59 PM EDT Hospital Encounter [facility] Radiation Oncology [address] [place] [phone] Discharge Disposition: Home or Self Care from Last 3 Months Surgical History Surgery Date Site/Laterality Comments SECTION, LOW TRANSVERSE BREAST BIOPSY Medical History Medical History Date Comments Hypertension Diabetes mellitus ([facility] V24, [facility] V28) Irregular heart beat Breast cancer ([facility] V24, [facility] V28) Heart [...] Immunization Adult Patie nts (1 - Risk 50-74 years 1-dose series) 11/09/2005 Depression Screening 06/23/2024 Cholesterol Screening (Lipid Panel) [...] 1,000 cGray [facility]IATION ONCOLOGY Prescribed Technique VILLEGAS,TAJIK,LPO MOSAIQ RADIATION ONCOLOGY Elapsed Days 5 MOSAIQ [...] 750 cGray MOSAIQ RADIATION ONCOLOGY Prescribed Technique VILLEGAS,TAJIK,LPO MOSAIQ RADIATION ONCOLOGY Elapsed Days 4 MOSAIQ [...] 500 cGray MOSAIQ RADIATION ONCOLOGY Prescribed Technique VILLEGAS,TAJIK,LPO MOSAIQ RADIATION ONCOLOGY Elapsed Days 3 MOSAIQ [...] 250 cGray MOSAIQ RADIATION ONCOLOGY Prescribed Technique VILLEGAS,TAJIK,LPO MOSAIQ RADIATION ONCOLOGY Elapsed Days 0 MOSAIQ [...] 9:12 AM EDT Physician Radiation Oncology RADIATION ONCOLO [...] GY ORDERABLES Final Result Performing Organization Address City/[facility]/ZIP Co de Phone Number MOSAIQ RADIATION [...] GY ORDERABLES Final Result [facility] RADIATION ONCOLOGY from Last 3 Months Insurance [employer] MEDICARE Care Teams Broadcast Program Director Relationship Specialty Start Date End Date Maurice Moralez MD [facility] [address] [place] [address] [address] [place] [address] PCP - General Internal Medicine 11/30/24
--- OUTSIDE RECORDS SUMMARY | 2025-04-19 09:25 | XMS_ITS | Clinical Summary ---
Author Organization [facility] Address [address] [place] [address] Care Team Providers Care Distillery Worker General Name Role Phone Unavailable Primary Care Provider Unavailabl e Encounters Date Type Department Care Team Description 03/31/2025 Telephone [facility] [address] [place] [phone] Branden Martínez MD 03/29/2025 Scanned Document [facility] [address] [place] [phone] Monik Brown MD 03/29/2025 Orders Only [facility] [address] [place] [phone] Monik Brown MD 03/29/2025 Transcribe Orders [facility] [address] [place] [phone] Monik Brown MD Nontoxic multinodular goiter [...]
--- OUTSIDE RECORDS SUMMARY | 2025-04-19 09:25 | XMS_ITS | Patient Health Record ---
Author Organization [facility] Address [address] [place] [address] Care Team Providers Care Civil Defense Director Name Role Phone Robert Franco Primary [...] Insured Coverage Start Date Coverage End Date [facility] [address] [address] [place] [address] [phone] [id number] Kathy Cowan Self - patient is the insured Medical (General) History Medical History History ICD Code DM hypertension irregiular heart beat Surgical History Surgery Date(Month/Year) c section Hospitalization History Reason Date(Month/Year) as above
--- OUTSIDE RECORDS SUMMARY | 2025-04-19 09:25 | XMS_ITS | Encounter Summary ---
Author Organization [facility] Address [address] [place] [address] Care Team Providers Care Deputy Director Of Public Works Name Role Phone Unavailable Primary Care Provider Unavailabl e Encounter Details Date Type Department Care Team (Late st Contact Info) Description 03/29/2025 Scanned Document [facility] [address] [place] [phone] Monik Brown MD [address] [place] [address] Social History Tobacco Use Types Packs/Day Years [...]
--- OUTSIDE RECORDS SUMMARY | 2025-04-19 09:25 | XMS_ITS ---
Author Organization [facility] Address [address] [place] [address] Phone Care Team Providers Care Wallpaper Hanger Helper Name Role Phone Maurice Moralez MD Primary Care Provider +1- [phone] Active Problems Problem Noted Date Diagnosed Date Breast cancer ([facility]/HCC V24, CMS/HCC V28) 025 Hypertension 12/01/2024 Hyperparathyroidism (CMS/HCC V24) 12/01/2024 Invasive ductal carcinoma of breast (CMS/HCC V24, CMS/HCC V28) 12/01/2024 Left breast mass 12/01/2024 Mass of right chest wall 12/01/2024 Morbid obesity (CMS/HCC V24, CMS/HCC V28) 2024 Multiple thyroid nodules 12/01/2024 Palpitations 12/01/2024 Polyarthralgia 12/01/2024 Right sided sciatica 12/01/2024 Type 2 diabetes mellitus (CMS/HCC V24, CMS/[facility] V 28) 12/01/2024 Current Treatment and Therapy [...] - 02/16/2025 250 / 250 cGy 4 / 1,000 / 1,000 cGy Left Breast 01/20/2025 - 02/10/2025 267 / 267 cGy 4,272 / 4,272 cGy
[2025-04-19 09:52] LABS: Alanine Aminotransferase 17 U/L (0-31); Albumin Level 4.2 g/dL (3.5-5.0); Alkaline Phosphatase 95 U/L (39-117); Anion Gap 12 (12-20); Aspartate Amino Transferase 22 U/L (5-31); Blood Urea Nitrogen 9 mg/dL (9-16); Calcium 9.1 mg/dL (8.4-10.2); Carbon Dioxide 29 mmol/L (22-29); Chloride 106 mmol/L (96-108); Cholesterol 210 mg/dL (<200); Estimated Glomerular Filt Rate > 60; HDL Cholesterol 41 mg/dL (>40); Potassium 4.1 mmol/L (3.3-5.1); Sodium 143 mmol/L (135-145); Total Protein 7.5 g/dL (6.5-8.0); Triglycerides 116 mg/dL (<150)
[2025-04-19 09:52] LABS: Microalbum/Creatinine Ratio Ur 147.2 ug/mg cr (<30)
[2025-04-19 10:01] LABS: Thyroid Stimulating Hormone 0.02 uIU/mL (0.32-4.0)
== END 2025-04-19 08:43 | disposition home or self-care (01) ==
LOC: HO.LAB 08:42
PROVIDERS: Absent Provider Internal Medicine; PCP Internal Medicine; Visit Provider Internal Medicine
DX: I10 Essential (primary) hypertension (principal); Z13.1 Encounter for screening for diabetes mellitus
CPT/HCPCS: 36415; 80048; 80061; 80076; 81001; 82043; 82570; 83036; 84443; 85027

== ENCOUNTER 2025-04-22 09:56 | Outpatient (AMB) | payer MEDICARE, SELFPAY ==
--- NOTE | 2025-04-22 10:16 | A.OFFVIS_ITS ---
Intake Visit Reasons: OV- FU MRI Intake Note: Kathy is a 69 year old female who presents today in office for a follow up visit of her low back pain. She is here to review the MRI of her lumbar spine done on 04/11/2025. At today's visit she states no changes to report at this time. Allergies hydrochlorothiazide Allergy (Intermediate, Verified 04/07/25 10:41) did not resolve HTN aspirin Adverse Reaction (Intermediate, Verified 04/07/25 10:41) Gastrointestinal Upset valsartan Adverse Reaction (Intermediate, Verified 04/07/25 10:41) Hypertension Medication List - Last Reconciled 04/22/25 by Brandi Connor MD atenolol 100 mg PO DAILY atorvastatin 10 mg PO BEDTIME flash glucose sensor (FreeStyle Ela 2 Sensor kit) check bs 4 times a day ibuprofen 600 mg PO Q6H PRN insulin glargine (Lantus Solostar U-100 Insulin) 70 units (0.7 mL) subcut BEDTIME insulin lispro 18 units subcut TID pen needle, diabetic (BD Ultra-Fine Micro Pen Needle) As directed HPI Comments Details: History of multinodular toxic goiter, hyperparathyroidism, poorly-controlled diabetes. Recent diagnosis of left breast CA, s/p radiation and surgery. Previously seen by Kari in ortho for hip pain. X-rays of the hip were normal. Chronic lower back pain, midline. Feels it in the legs when she stands for a long time. Needs cane for ambulation. But does not seem to be claudication or leg pain. Denies actual numbness on legs or feet (feet sometimes numb but she is diabetic). Had MRI 3 years ago, in [place]. Does not remember the results. No injections. MRI obtained, no significant spinal stenosis or disc herniation. Perhaps mild foraminal stenosis at L4-5. Incidental finding on adrenal which she will discuss with PCP and oncologist. [facility] Medical History Palpitations Mass of right chest wall Subclinical hyperthyroidism Invasive ductal carcinoma of breast Morbid obesity Left breast mass Hyperparathyroidism Multiple thyroid nodules Positive colorectal cancer screening using Cologuard test (~04/30/24) Right sided sciatica Polyarthralgia HTN (hypertension) Type 2 diabetes mellitus Surgical History History of lumpectomy of left breast (11/10/24) History of biopsy History of colonoscopy (~06/23/20) History of tooth extraction History of toe surgery History of delivery Family History Mother Diabetes HTN (hypertension) Father Cardiomegaly Substance use disorder Maternal Grandmother Uterine cancer Maternal Aunt Colon cancer Social History Household Members: Family and Children Housing: House Are you a primary career development coordinator/teacher to a significant other at home: No Do you presently have visiting nurse or other home services: No Alcohol intake: never Patient Tobacco Use Status: Former Tobacco user Tobacco use type: Cigarette Years Smoked: 15 e-Cigarette/Vaping Use: Never Used Second Hand Smoke Exposure: Yes Advance Directives Date on File: 08/18/24 service: No Current occupational status: retired Cognitive needs: Yes (cane) Hearing needs: No Vision needs: Yes (glasses) Physical Exam Exam Exam: Constitutional: Patient appears to be in no acute distress, well nourished and well developed. Patient was appropriately conversant and oriented. Good historian. Neurological: Gait is non antalgic without loss of balance. With cane. Results Reviewed Results Reviewed: Ordering Physician: Brandi Smith Date of Service: 03/11/25 Procedure(s): XR lumbar spine 2-3V Accession Number(s): [id number] cc: Brandi Smith; Maurice Moralez MD~ Reason for Exam: M54.9 - Dorsalgia, unspecified EXAMINATION: XR LUMBOSACRAL SPINE CLINICAL INFORMATION: M54.9 - Dorsalgia, unspecified COMPARISON: None available. TECHNIQUE: Three views of the lumbosacral spine. FINDINGS: SI joints demonstrate subchondral sclerosis and narrowing, left greater than right. There are 5 nonrib-bearing lumbar segments. T12-L1 demonstrates mild disc space narrowing. L2 demonstrates mild disc space narrowing and endplate sclerosis. L2-3 demonstrates mild disc space narrowing. L3-4 demonstrates subtle retrolisthesis and mild disc space narrowing with anterior aspect. L4-5 demonstrates facet sclerosis and osteophytes. L5-S1 demonstrates facet sclerosis and osteophytes. XR/XR lumbar spine 2-3V IMPRESSION: Multilevel degenerative changes in the lumbar spine and bilateral SI joints. Electronically signed by: Mike Wong MD 03/11/2025 11:57 AM EDT RP Ordering Physician: Brandi Smith Date of Service: 04/11/25 Procedure(s): MR lumbar spine wo con Accession Number(s): [id number] cc: Brandi Smith; Maurice Moralez MD~ Reason for Exam: M54.50 - Low back pain, unspecified EXAMINATION: MR LUMBAR SPINE WITHOUT CONTRAST CLINICAL INFORMATION: M [age]. Low back pain, unspecified. COMPARISON: None available. TECHNIQUE: MRI of the lumbar spine was obtained using routine sequences without contrast. FINDINGS: Last rib-bearing vertebra labeled T12. There is a focal intrinsic hyperintense T1 bone lesion in the superior endplate of L2 likely intraosseous hemangioma. Multilevel disc desiccation. 1 mm retrolisthesis, L3-4 and likely L2-3 on a degenerative basis. No bone marrow STIR signal abnormality. Buckling deformity in the dorsal aspect of the thecal sac secondary to ligamentum flavum hypertrophy at T11-T12. Conus medullaris ends at pedicle of L1 with normal signal. There is a 10 mm isointense to hypointense T2 nodular lesion left adrenal gland. T12-L1: No disc herniation. No neuroforamina stenosis. L1-2: Bilateral facet joint hypertrophy. No central spinal canal or neuroforamina stenosis. L2-3: Broad-based disc bulging. Facet joint and ligamentum flavum hypertrophy. Reduced AP diameter thecal sac. No neuroforamina stenosis. L3-4: Broad-based disc bulging. Facet joint and ligamentum flavum hypertrophy. No compression upon neural elements. L4-5: Broad-based disc bulging. Facet joint and ligamentum flavum hypertrophy. Reduced AP diameter thecal sac and neuroforamina likely encroaching the neural elements. L5-S1: Broad-based disc bulging. Facet joint hypertrophy. No central spinal canal or neuroforamina stenosis. No prevertebral compartment hematoma, mass or fluid collections. MR/MR lumbar spine wo con IMPRESSION: Multilevel thoracolumbar spondylosis pronounced at L4-5 likely encroaching the neural elements. 10 mm nodule, left adrenal gland. Statistically may represent adenoma. Electronically signed by: Christophe Chaudhry MD 04/11/2025 11:02 AM EDT RP Assessment & Plan Assessment & Plan (1) Lumbar spondylosis: Code(s): M47.816 - Spondylosis without myelopathy or radiculopathy, lumbar region Category: Medical (2) Myofascial pain: Code(s): M79.18 - Myalgia, other site Category: Medical Plan MRI images reviewed with patient. It does not show any significant spinal stenosis or disc herniation. Suspect pain is myofascial. No red flags seen on exam. Would recommend starting physical therapy and long-term home exercise program. She will continue with topical patch [id number]. Incidental finding on adrenal. Patient to discuss with PCP. Assessment and plan discussed with patient, and patient was agreeable. All questions were answered thoroughly. Brandi Connor MD, KAY Board Certified, [place] Board [employer] and Rehabilitation (ABPMR) Board Certified, [place] Board [employer] Electrodiagnostic [employer] (ABEM) Orders: Orders PT Evaluation and Treatment Today M47.816 - Spondylosis without myelopathy or radiculopathy, lumbar region, M79.18 - Myalgia, other site Coding Level of Care Code Est Pt Level 3 (36784) Diagnoses Lumbar spondylosis M47.816 Myofascial pain M79.18
--- OUTSIDE RECORDS SUMMARY | 2025-04-22 11:09 | XMS_ITS | Clinical Summary ---
Author Organization [facility] Address [address] [place] [address] Phone Care Team Providers Care Textile Dyer Name Role Phone Maurice Moralez MD Primary Care Provider [phone]- [phone] Allergies Active Allergy Reactions Criticality Noted Date [...] Problem Noted Date Diagnosed Date Breast cancer ([facility] V24, CMS/HCC V28) 025 Hypertension 12/01/2024 Hyperparathyroidism ([facility] V24) 12/01/2024 Invasive ductal carcinoma of breast (CMS/HCC V24, CMS/[facility] V28) 12/01/2024 Left breast mass 12/01/2024 Mass of right chest wall 12/01/2024 Morbid obesity (CMS/HCC V24, CMS/[facility] V28) 2024 Multiple thyroid nodules 12/01/2024 Palpitations 12/01/2024 Polyarthralgia 12/01/2024 Right sided sciatica 12/01/2024 Type 2 diabetes mellitus ([facility] V24, [facility] V 28) 12/01/2024 Encounters Date Type Department Care Team Description 03/24/2025 9:51 AM EDT - 03/24/2025 11:59 PM EDT Hospital Encounter [facility] [address] [place] [phone] Sammie Rushing, SHERRILL Malignant neoplasm of lower-outer quadrant of left breast of female, estrogen receptor positive ([facility] V24, [facility] V28) (Primary Dx) Discharge Disposition: Home or Self Care 02/16/2025 9:35 AM EDT - 02/16/2025 11:59 PM EDT Hospital Encounter [facility] [address] [place] [phone] Sammie Rushing NP Infiltrating ductal carcinoma of left breast ([facility] V24, [facility] V28) (Primary Dx) Discharge Disposition: Home or Self Care 02/16/2025 9:10 AM EDT - 02/16/2025 11:59 PM EDT Hospital Encounter [facility] [address] [place] [phone] Discharge Disposition: Home or Self Care 02/15/2025 9:13 AM EDT - 02/15/2025 11:59 PM EDT Hospital Encounter [facility] [address] [place] [phone] Discharge Disposition: Home or Self Care 02/14/2025 9:12 AM EDT - 02/14/2025 11:59 PM EDT Hospital Encounter [facility] [address] [place] [phone] Discharge Disposition: Home or Self Care 02/11/2025 9:40 AM EDT - 02/11/2025 11:59 PM EDT Hospital Encounter [facility] [address] [place] [phone] Amanda Merchant MD Malignant neoplasm of lower-outer quadrant of left breast of female, estrogen receptor positive (CMS/HCC V24, CMS/HCC V28) (Primary Dx) Discharge Disposition: Home or Self Care 02/11/2025 9:31 AM EDT - 02/11/2025 11:59 PM EDT Hospital Encounter [facility] [address] [place] [phone] Amanda Merchant MD Discharge Disposition: Home or Self Care 02/11/2025 9:08 AM EDT - 02/11/2025 11:59 PM EDT Hospital Encounter [facility] [address] [place] [phone] Discharge Disposition: Home or Self Care 02/10/2025 9:26 AM EDT - 02/10/2025 11:59 PM EDT Hospital Encounter [facility] [address] [place] [phone] Discharge Disposition: Home or Self Care 02/09/2025 9:28 AM EDT - 02/09/2025 11:59 PM EDT Hospital Encounter [facility] [address] [place] [phone] Discharge Disposition: Home or Self Care 02/09/2025 7:29 AM EDT - 02/09/2025 11:59 PM EDT Hospital Encounter [facility] [address] [place] [phone] Discharge Disposition: Home or Self Care 02/08/2025 9:18 AM EDT - 02/08/2025 11:59 PM EDT Hospital Encounter [facility] [address] [place] [phone] Discharge Disposition: Home or Self Care 02/07/2025 9:24 AM EDT - 02/07/2025 11:59 PM EDT Hospital Encounter [facility] [address] [place] [phone] Discharge Disposition: Home or Self Care 02/04/2025 9:29 AM EDT - 02/04/2025 11:59 PM EDT Hospital Encounter [facility] [address] [place] [phone] Jose Oliveros MD Infiltrating ductal carcinoma of left breast (CMS/HCC V24, CMS/HCC V28) (Primary Dx) Discharge Disposition: Home or Self Care 02/04/2025 9:13 AM EDT - 02/04/2025 11:59 PM EDT Hospital Encounter [facility] [address] [place] [phone] Discharge Disposition: Home or Self Care 02/03/2025 9:08 AM EDT - 02/03/2025 11:59 PM EDT Hospital Encounter [facility] [address] [place] [phone] Discharge Disposition: Home or Self Care 02/02/2025 9:16 AM EDT - 02/02/2025 11:59 PM EDT Hospital Encounter [facility] [address] [place] [phone] Discharge Disposition: Home or Self Care 02/01/2025 9:19 AM EDT - 02/01/2025 11:59 PM EDT Hospital Encounter [facility] [address] [place] [phone] Discharge Disposition: Home or Self Care 01/31/2025 9:20 AM EDT - 01/31/2025 11:59 PM EDT Hospital Encounter [facility] [address] [place] [phone] Discharge Disposition: Home or Self Care 01/28/2025 9:13 AM EDT - 01/28/2025 11:59 PM EDT Hospital Encounter [facility] [address] [place] [phone] Amanda Merchant MD Infiltrating ductal carcinoma of left breast (CMS/HCC V24, CMS/HCC V28) (Primary Dx) Discharge Disposition: Home or Self Care 01/28/2025 8:49 AM EDT - 01/28/2025 11:59 PM EDT Hospital Encounter [facility] [address] [place] [phone] Discharge Disposition: Home or Self Care 01/27/2025 9:04 AM EDT - 01/27/2025 11:59 PM EDT Hospital Encounter [facility] [address] [place] [phone] Discharge Disposition: Home or Self Care 01/26/2025 9:10 AM EDT - 01/26/2025 11:59 PM EDT Hospital Encounter [facility] [address] [place] [phone] Discharge Disposition: Home or Self Care 01/25/2025 9:05 AM EDT - 01/25/2025 11:59 PM EDT Hospital Encounter [facility] [address] [place] [phone] Discharge Disposition: Home or Self Care 01/24/2025 9:08 AM EDT - 01/24/2025 11:59 PM EDT Hospital Encounter [facility] [address] [place] [phone] Discharge Disposition: Home or Self Care 01/21/2025 9:32 AM EDT - 01/21/2025 11:59 PM EDT Hospital Encounter [facility] [address] [place] [phone] Amanda Merchant MD Primary malignant neoplasm of upper inner quadrant of female breast, left (CMS/HCC V24, CMS/HCC V28) (Primary Dx) Discharge Disposition: Home or Self Care 01/21/2025 9:13 AM EDT - 01/21/2025 11:59 PM EDT Hospital Encounter [facility] [address] [place] [phone] Discharge Disposition: Home or Self Care 01/20/2025 9:34 AM EDT - 01/20/2025 11:59 PM EDT Hospital Encounter [facility] [address] [place] [phone] Amanda Merchant MD Discharge Disposition: Home or Self Care 01/20/2025 9:22 AM EDT - 01/20/2025 11:59 PM EDT Hospital Encounter [facility] [address] [place] [address] Discharge Disposition: Home or Self Care from Last 3 Months Surgical History Surgery Date Site/Laterality Comments SECTION, LOW TRANSVERSE BREAST BIOPSY Medical History Medical History Date Comments Hypertension Diabetes mellitus ([facility] V24, [facility] V28) Irregular heart beat Breast cancer ([facility] V24, [facility] V28) Heart murmur Family History Medical History [...] 1,000 cGray [facility] Prescribed Technique VILLEGAS,MOHAWK,LPO [facility] RADIATION ONCOLOGY Elapsed Days 5 MOSAIQ [...] 750 cGray [facility] RADIATION ONCOLOGY Prescribed Technique VILLEGAS,MOHAWK,LPO MOS[facility] RADIATION ONCOLOGY Elapsed Days 4 MOSAIQ [...] 500 cGray [facility] RADIATION ONCOLOGY Prescribed Technique VILLEGAS,MOHAWK,LPO MOSAIQ RADIATION ONCOLOGY Elapsed Days 3 MOSAIQ [...] 250 cGray MOS[facility] RADIATION ONCOLOGY Prescribed Technique VILLEGAS,MOHAWK,LPO MOS[facility] RADIATION ONCOLOGY Elapsed Days 0 MOSAIQ [...] GY ORDERABLES Final Result Performing Organization Address City/[facility]/ZIP Co de Phone Number [facility] RADIATION [...] Months Insurance [employer] Care Teams Textile Dyer Relationship Specialty Start Date End Date Maurice Moralez MD [facility] [address] [place] [address] [address] [place] [address] PCP - General Internal Medicine 11/30/24
--- OUTSIDE RECORDS SUMMARY | 2025-04-22 11:09 | XMS_ITS | Patient Health Record ---
Author Organization [facility] Address [address] [place] [address] Care Team Providers Care Clinical Informatics Director Name Role Phone Robert Franco Primary [...] Insured Coverage Start Date Coverage End Date [facility] [address] [address] [place] [address] [id number] Kathy Cowan Self - patient is the insured Medical (General) History Medical History History ICD Code DM hypertension irregiular heart beat Surgical History Surgery Date(Month/Year) c section Hospitalization History Reason Date(Month/Year) as above
--- OUTSIDE RECORDS SUMMARY | 2025-04-22 11:10 | XMS_ITS ---
Author Organization [facility] Address [address] [place] [address] Phone Care Team Providers Care Data Analysis Manager Name Role Phone Maurice Moralez MD Primary Care Provider +1- [phone] Active Problems Problem Noted Date Diagnosed Date [...]
--- OUTSIDE RECORDS SUMMARY | 2025-04-22 11:10 | XMS_ITS | Encounter Summary ---
Author Organization [facility] Address [address] [place] [address] Care Team Providers Care Television Newscast Director Name Role Phone Unavailable Primary Care Provider Unavailabl e Encounter Details Date Type Department Care Team (Late st Contact Info) Description 03/29/2025 Scanned Document [facility] [place] [address] [place] [phone] Monik Brown MD [address] [place] [address] Social History Tobacco Use Types Packs/Day Years [...]
--- OUTSIDE RECORDS SUMMARY | 2025-04-22 11:10 | XMS_ITS | Clinical Summary ---
Author Organization [facility] Address [address] [place] [address] Care Team Providers Care School Cafeteria Cook Head Name Role Phone Unavailable Primary Care Provider Unavailabl e Encounters Date Type Department Care Team Description 03/31/2025 Telephone [facility] [address] [place] [phone] Branden Martínez MD 03/29/2025 Scanned Document [facility] [address] [place] [phone] Monik Brown MD 03/29/2025 Orders Only [facility] [address] [place] [phone] Monik Brown MD 03/29/2025 Transcribe Orders [facility] [address] [place] [phone] Monik Brown MD Nontoxic multinodular goiter [...]
== END 2025-04-22 10:37 | disposition home or self-care (01) ==
LOC: HO.HOS 09:57
PROVIDERS: PCP Internal Medicine; Visit Provider Physical Medicine & Rehabilitation
DX: M47.816 Spondylosis without myelopathy or radiculopathy, lumbar region (principal); M79.18 Myalgia, other site
CPT/HCPCS: 99213

== ENCOUNTER → 2025-04-22 09:56 | Outpatient (BNVA) | payer MEDICARE, SELFPAY | PROVIDERS: PCP Internal Medicine; Visit Provider Physical Medicine & Rehabilitation | DX: M54.50 Low back pain, unspecified (principal); M47.816 Spondylosis without myelopathy or radiculopathy, lumbar region; M79.18 Myalgia, other site | CPT/HCPCS: 99212 ==